=== PATIENT | male | born 1960 | race Caucasian/White ===

== ENCOUNTER 2022-03-20 05:51 | Inpatient (IN) | payer OTHER, SELFPAY ==
[2022-03-20] VITALS (21 sets, daily range): BP systolic 85–111; BP diastolic 62–89; PULSE 79–99; RESP 16–24; TEMP 36.2–38.1; O2SAT 85–96; BMI 27.5; BMI 26.8
--- NOTE | 2022-03-20 06:15 | RAD_ITS ---
STUDY: X-RAY CHEST REASON FOR EXAM: Male, 61 years old. Dyspnea TECHNIQUE: Portable, upright, AP chest x-ray COMPARISON: None. FINDINGS: Scattered bilateral pulmonary infiltrates. Elevated right hemidiaphragm. There is no demonstrated pleural abnormality. Normal size heart. Normal mediastinum and luis fernando. Normal visualized pulmonary arteries. Normal visualized aortic arch and descending thoracic aorta. There is no demonstrated abnormality of the visualized soft tissue structures of the upper abdomen. RAD/Chest 1 View (Portable) IMPRESSION: Bilateral pulmonary infiltrates suspicious for the focal pneumonia. Electronically Signed: Frank Valdovinos MD at 6:47 EST ,
--- NOTE | 2022-03-20 06:15 | EKG12_ITS ---
Test Reason : SOB Blood Pressure : / mmHG Vent. Rate : 090 BPM Atrial Rate : 090 BPM P-R Int : 152 ms QRS Dur : 096 ms QT Int : 352 ms P-R-T Axes : 060 065 067 degrees QTc Int : 430 ms Normal sinus rhythm Low voltage QRS ST depression, consider subendocardial injury Nonspecific T wave abnormality Abnormal ECG Confirmed by LIANA PINEDA, SHIRLEY ([id number]), video effects editor EVERARDO DAO ([id number]) on 03/22/2022 11:11:58 AM Referred By: Confirmed By:SHIRLEY GAINES MD
--- NOTE | 2022-03-20 06:16 | EDS_ITS ---
HPI History of Present Illness Chief Complaint: Shortness of Breath Informant: patient and spouse/S.O. Narrative Narrative: 61-year-old male presenting to the emergency room with a chief complaint of dyspnea. He states that he had a stomach flu on Monday. states that he was vomiting from Monday into yester. He denies any diarrhea any fevers. He notes that he did have some myalgias. No URI symptoms. No cough. He states that he is starting to develop some shortness of breath on but progressively worsened more last night to the point where he is unable to lay flat. Nursing triage notes that the patient was about 85% on room air when he came in and that he looked bluish. He states he is not treated for any medical problems. He denies any active chest pain or recent chest pain. No DVT PE risk factors. He denies any leg swelling. PFSH PFSH Medical History no medical history no medical history Allergy/AdvReac Type Severity Reaction Status Date / Time No Known Allergies Allergy Verified 03/20/22 05:56 Surgical History no surgical history Social History (Updated 03/20/22 @ 06:[address] Blaine Fisher, DO) current gender identity: male Smoking Status: Never smoker ROS ROS ED Constitutional Constitutional ED: Denies chills, fever(s) or weight loss Eyes Eyes: Denies change in vision or diplopia ENT ENT ED: Denies ear pain, rhinorrhea or sore throat Cardiovascular Cardiovascular: Reports orthopnea; Denies chest pain, palpitations or racing heartbeat Respiratory/Chest Respiratory/Chest: Reports dyspnea, dyspnea on exertion and orthopnea; Denies cough Gastrointestinal Gastrointestinal: Reports nausea and vomiting; Denies abdominal pain or diarrhea Genitourinary Genitourinary ED: Denies dysuria, hematuria or urinary frequency Musculoskeletal Musculoskeletal: Denies arthralgias or myalgias Integumentary Denies abscess or rash Neurologic Neurologic: Denies headache(s) or weakness Psychiatric Psychiatric: Denies anxiety, depression, suicidal ideation or suicidal thoughts Endocrine Endocrinology: Denies polydipsia, polyphagia or polyuria Allergic/Immunologic Allergic/Immunologic ED: Denies mouth swelling, tongue swelling or urticaria EXAM Physical Exam Const Vital Signs: 03/20/22 05:52 03/20/22 05:58 03/20/22 06:57 Temperature 97.6 F L Temperature Source Temporal Pulse Rate 89 87 Respiratory Rate 22 H 20 H Respiratory Effort Short of Breath Respiratory Depth Normal Respiratory Pattern Tachypnea Normal Blood Pressure 111/76 Blood Pressure Mean 87 Pulse Ox 85 Oxygen Delivery Method Room Air Room Air 03/20/22 07:16 Temperature Temperature Source Pulse Rate Respiratory Rate Respiratory Effort Short of Breath Labored Respiratory Depth Respiratory Pattern Blood Pressure Blood Pressure Mean Pulse Ox Oxygen Delivery Method Positive well nourished and well developed General Appearance ED: well developed HEENT Reports normocephalic, head/scalp atraumatic and moist mucous membranes Eyes PERRL and EOMs intact bilaterally Neck no lymphadenopathy, supple and no JVD Resp normal respiratory effort Auscultation: rales bilateral Cardio regular rate, regular rhythm and no murmurs GI normal to inspection, nondistended, normoactive bowel sounds and non-tender Palpation: soft Back/Spine no CVA tenderness and normal ROM Extremity normal to inspection General Extremety ED: Negative for edema General Extremity: Negative for edema Neuro oriented x3 and CN's II-XII intact bilaterally Sensorium / Orientation: alert Motor Exam: strength 5/5 throughout Psych mental status grossly normal Mood & Affect: Negative for depressed or tearful Skin no rashes or lesions noted and no wounds MDM MDM MDM Narrative Medical decision making narrative: You doPatient was placed on the monitor given supplemental oxygen. The patient's saturations improved and his dyspnea also improved. His white count returns at 20.5. Hemoglobin of 16.1. Beta natruretic peptide is 337.2. The patient's troponin is very significantly elevated at 19,525 with a creatinine of 1.26. Normal lactic acid. Initial EKG shows some ST depressions in the anterior leads which continued even after his hypoxia into the second EKG. A third EKG was ordered after approximately 2 hours and supplemental oxygen. My interpretation of the chest x-ray is congestive heart failure. However radiology is reading this as bilateral infiltrates. The patient did receive Rocephin and azithromycin. Repeat examination the patient feels better. However I still am very concerned from a cardiac standpoint so I placed him on a heparin drip and given aspirin. I did contact Dr. Lamas from cardiology who will be down to evaluate the patient. Lab Data Attestation: I reviewed the patient's lab results. Labs: Laboratory Results - last 24 hr 03/20/22 03/20/22 03/20/22 06:00 06:00 06:00 WBC 20.5 H RBC 4.84 Hgb 16.1 Hct 46.3 MCV 95.7 H MCH 33.3 H MCHC 34.8 RDW Std Deviation 44.4 H RDW Coeff of Andrew 12.5 Plt Count 290 MPV 12.3 H Immature Gran % (Auto) 1.000 H Neut % (Auto) 79.1 H Lymph % (Auto) 8.0 L [place] % (Auto) 11.7 H Eos % (Auto) 0.0 Baso % (Auto) 0.2 Absolute Neuts (auto) 16.2 H Absolute Lymphs (auto) 1.63 Nucleated RBC % 0 Diff Path Review May foll Macrocytosis RARE PT INR APTT Sodium 136 Potassium 3.8 Chloride 100 Carbon Dioxide 28.0 Anion Gap 8 BUN 29 H Creatinine 1.26 Estim Creat Clear Calc 64.74 Est GFR (MDRD) Af Amer 75 Est GFR (MDRD) Non-Af 62 BUN/Creatinine Ratio 23.0 H Glucose 128 H Lactic Acid Calcium 8.6 Total Bilirubin 1.70 H AST 163 H ALT 92 H Alkaline Phosphatase 163 H Troponin I High Sens 59249 H* B-Natriuretic Peptide 337.2 H Total Protein 7.4 Albumin 3.3 Globulin 4.1 Albumin/Globulin Ratio 0.8 L 03/20/22 03/20/22 06:00 07:00 WBC RBC Hgb Hct MCV MCH MCHC RDW Std Deviation RDW Coeff of Andrew Plt Count MPV Immature Gran % (Auto) Neut % (Auto) Lymph % (Auto) [place] % (Auto) Eos % (Auto) Baso % (Auto) Absolute Neuts (auto) Absolute Lymphs (auto) Nucleated RBC % Diff Path Review Macrocytosis PT 15.1 H INR 1.2 APTT 32.2 Sodium Potassium Chloride Carbon Dioxide Anion Gap BUN Creatinine Estim Creat Clear Calc Est GFR (MDRD) Af Amer Est GFR (MDRD) Non-Af BUN/Creatinine Ratio Glucose Lactic Acid 1.8 Calcium Total Bilirubin AST ALT Alkaline Phosphatase Troponin I High Sens B-Natriuretic Peptide Total Protein Albumin Globulin Albumin/Globulin Ratio Radiography Diagnostic Testing: Clinical Impression(s) from Imaging Studies Chest X-Ray 03/20/22 06:15 IMPRESSION: Bilateral pulmonary infiltrates suspicious for the focal pneumonia. Electronically Signed: Frank Valdovinos MD at 6:47 EST , EKG Initial EKG: Attestation: I personally reviewed and interpreted this EKG as follows: Comments: Normal sinus rhythm with a ventricular rate of 90 bpm. V1 is very difficult to interpret. There is some noted ST depression V2 V3 and V4. Follow-up EKG: Attestation: I personally reviewed and interpreted this EKG as follows: Comments: Sinus rhythm with a ventricular rate of [address] depression in the anterior leads. Critical Care Time Critical Care Time: Yes Critical care time (excluding procedures): 30-74 minutes (35 min), Including time spent:, Discussing w/Patient &/or Family/Cream Maker, Discussing w/Consultants, Arranging Admission or Transfer and Performing Direct Patient Care at Bedside Discharge Plan Dx/Rx/DC Orders Clinical Impression: Acute non-ST elevation myocardial infarction (NSTEMI), Acute hypoxemic respiratory failure, CHF (congestive heart failure), Leukocytosis Disposition Disposition: Acute Care Hospital [facility]
[2022-03-20 06:25] LABS: Absolute Lymphocyte Count 1.63 X10^3/uL (0.83-4.51); Absolute Neutrophil Count 16.2 X10^3/uL (2.0-7.7); Basophil# 0.05 X10^3/uL; Basophil% 0.2 % (0-1); Hematocrit 46.3 % (40-54); Hemoglobin 16.1 g/dL (13.0-16.5); Lymphocyte # 1.63 X10^3/ul (0.83-4.51); Mean Corp Hgb Conc 34.8 g/dL (32-36); Mean Corpuscular Hgb 33.3 pg (27.0-32.0); Mean Corpuscular Volume 95.7 fL (80-94); Mean Platelet Vol. 12.3 fl (6.2-12.0); Monocyte% 11.7 % (0-10); NRBC Flagged by Analyzer 0 % (0-5); Neutrophil % 79.1 % (47-70); POSITIVE DIFFERENTIAL YES; Platelet Count 290 K/mm3 (150-450); RBC Distribution Width CV 12.5 % (11.6-14.6); RBC Distribution Width SD 44.4 fl (35.1-43.9); Red Blood Count 4.84 M/mm3 (4.6-6.2); White Blood Count 20.5 K/mm3 (4.4-11.0)
[2022-03-20 06:29] LABS: Differential Indicated SCAN CRITERIA MET
--- NOTE | 2022-03-20 06:39 | EKG12_ITS ---
Test Reason : SOB Blood Pressure : / mmHG Vent. Rate : 087 BPM Atrial Rate : 087 BPM P-R Int : 170 ms QRS Dur : 100 ms QT Int : 342 ms P-R-T Axes : 059 054 044 degrees QTc Int : 411 ms Normal sinus rhythm Low voltage QRS Nonspecific ST and T wave abnormality Abnormal ECG Confirmed by LIANA PINEDA, SHIRLEY ([id number]), industrial editor EVERARDO DAO ([id number]) on 03/22/2022 11:12:19 AM Referred By: Confirmed By:SHIRLEY GAINES MD
[2022-03-20 06:50] LABS: Macrocytosis RARE
[2022-03-20] MEDS: Ipratropium/Albuterol Sulfate 3 ML AMPUL.NEB INHALATION ×4 (06:56→19:40)
--- NOTE | 2022-03-20 06:57 | NURSING ---
no old ekgs
[2022-03-20 07:16] LABS: BNP,B-Type NATRIURETIC PEPTIDE 337.2 pg/mL (0-100)
[2022-03-20] MEDS: 0.9% Normal Saline 1,000 ML 999 ML IV (07:22)
[2022-03-20] MEDS: Ceftriaxone 1 GM/50 ML BAG IV (07:29)
[2022-03-20 07:40] LABS: International Normalized Ratio 1.2; Prothrombin Time (Protime)PT. 15.1 SECONDS (11.7-14.9)
[2022-03-20 07:41] LABS: Partial Thromboplast Time 32.2 Seconds (24.1-36.2)
[2022-03-20 07:44] LABS: Lactic Acid 1.8 mmol/L (0.4-1.9)
[2022-03-20 07:54] LABS: ALB/GLOB Ratio 0.8 RATIO (0.9-2.4); AST(SGOT) 163 U/L (15-37); Alanine Aminotransfer ALT/SGPT 92 U/L (16-61); Albumin, Serum 3.3 g/dL (3.2-5.0); Alkaline Phosphatase 163 U/L (45-117); Anion Gap 8 (5-15); BUN 29 mg/dL (7-18); Calcium,Total 8.6 mg/dL (8.5-10.1); Chloride 100 mmol/L (98-107); Creatinine, Serum 1.26 mg/dL (0.70-1.30); EST Glomerular Filtration Rate 62 mL/min (>60); Est Glom Filt Rate - Afr Amer 75 mL/min (>60); Estimated Creatinine Clearance 64.74 ml/min; Globulin 4.1 g/dL (2.2-4.2); Glucose 128 mg/dL (74-106); Potassium 3.8 mmol/L (3.5-5.1); Protein, Total 7.4 g/dL (6.4-8.2); Sodium Level 136 mmol/L (136-145); Troponin-I HS 19525 pg/mL (3.0-78.0)
--- NOTE | 2022-03-20 08:08 | EKG12_ITS ---
Test Reason : RE CHECK Blood Pressure : / mmHG Vent. Rate : 084 BPM Atrial Rate : 084 BPM P-R Int : 156 ms QRS Dur : 090 ms QT Int : 374 ms P-R-T Axes : 066 058 050 degrees QTc Int : 441 ms Sinus rhythm with occasional Premature ventricular complexes Low voltage QRS ST depression, consider subendocardial injury Nonspecific T wave abnormality Abnormal ECG Confirmed by LIANA PINEDA, SHIRLEY ([id number]), legal editor EVERARDO DAO ([id number]) on 03/22/2022 11:12:39 AM Referred By: Confirmed By:SHIRLEY GAINES MD
[2022-03-20] MEDS: Aspirin 325 MG Tablet PO (08:12)
[2022-03-20] MEDS: Heparin Injection (Vial) 5,000 UNIT/ML VIAL 6000 UNIT IV (08:27)
[2022-03-20] MEDS: HEPARIN/D5w 25,000 UNITS 25,000 UNITS/250 ML IV.SOLN. 12 UNITS CONT INF (08:27)
--- NOTE | 2022-03-20 08:52 | ECHOD_ITS ---
Reason For Study: SOB Procedure This was a 2D Doppler, Color Flow transthoracic echocardiogram. Exam performed portable in patient room. Left Ventricle Normal LV size. The estimated ejection fraction is 45 %. Mild to moderate segmental systolic dysfunction (see wall motion). Mid-Inferior: Severely Hypokinetic. Mid-Lateral : Akinetic. Lateral- Basal: Akinetic. Infero-Basal: Akinetic. There are regional wall motion abnormalities as specified. Right Ventricle Normal RV size. Normal systolic function. Atria Normal left atrium. Normal right atrium. Mitral Valve Normal mitral valve. Moderately severe (3+) eccentric mitral valve insufficiency. Tricuspid Valve Normal tricuspid valve. Moderate (2+) tricuspid valve insufficiency. Pulmonary artery systolic pressure is 60 mmHg. Moderate pulmonary hypertension. Aortic Valve Normal aortic valve. Trisinus/trileaflet aortic valve. Pulmonic Valve Normal pulmonic valve. Great Vessels Normal aortic root. The pulmonary artery is normal size. Normal inferior vena cava. Pericardium/Pleural No pericardial effusion. MMode/2D Measurements & Calculations LVIDd: 5.6 cm IVSd: 1.1 cm Ao root diam: 2.9 cm LVIDs: 4.3 cm LVPWd: 1.2 cm RVDd: 3.4 cm FS: 24.4 % LAV(MOD-bp): 70.7 ml LVAd ap4: 36.0 cm2 LVAd ap2: 29.7 cm2 LAV(MOD-bp) Indexed: 33.7 ml/m2 LVLd ap4: 8.3 cm LVLd ap2: 7.4 cm LAV(MOD-sp2): 78.2 ml EDV(MOD-sp4): 133.2 ml EDV(MOD-sp2): 104.5 ml LAV(MOD-sp4): 57.3 ml EDV(sp4-el): 132.4 ml EDV(sp2-el): 101.2 ml LVAs ap4: 24.5 cm2 LVAs ap2: 21.0 cm2 LVLs ap4: 6.8 cm LVLs ap2: 6.5 cm ESV(MOD-sp4): 77.1 ml ESV(MOD-sp2): 60.3 ml ESV(sp4-el): 75.0 ml ESV(sp2-el): 57.6 ml EF(MOD-sp4): 42.1 % EF(MOD-sp2): 42.3 % EF(sp4-el): 43.3 % SV(MOD-sp4): 56.1 ml SV(MOD-sp2): 44.2 ml SV(sp4-el): 57.4 ml LA dimension(2D): 4.5 cm LA A4 area: 21.5 cm2 RA A4 area: 16.2 cm2 Doppler Measurements & Calculations MV E max sendy: 93.6 cm/sec Ao V2 max: 103.3 cm/sec LV V1 max: 79.0 cm/sec Ao max P.3 mmHg LV V1 max P.5 mmHg PA V2 max: 83.1 cm/sec TR max sendy: 367.3 cm/sec TR max P.0 mmHg ECHO/Echo Complete Interpretation Summary Normal LV size. The estimated ejection fraction is 45 %. Mild to moderate segmental systolic dysfunction (see wall motion). Moderately severe (3+) eccentric mitral valve insufficiency. Pulmonary artery systolic pressure is 60 mmHg. Moderate pulmonary hypertension. Ordering Physician: Carmelo Lamas Referring Physician: Moshe Sanchez MD Performed By: Aylin Thurston, ALDAIR, RVT
--- NOTE | 2022-03-20 08:53 | CON.PCM.CA_ITS ---
Assessment & Plan Assessment/Plan (1) Acute non-ST elevation myocardial infarction (NSTEMI): PLAN: He does present with mild shortness of breath and is noted to have an elevated troponin level. He also has EKG changes suggestive of coronary ischemia. At this time he is pain-free. My recommendation is to treat him conservatively with aspirin as well as intravenous heparin. * Will obtain an echocardiogram to assess his ventricular function and then depending on the findings further recommendations will be made. * My threshold to perform a left heart catheterization would be rather low. (2) CHF (congestive heart failure): PLAN: He does present with shortness of breath and is noted to have chest x-ray findings which are compatible with congestive heart failure. Will obtain an echocardiogram to assess his ventricular function and depending on the findings further recommendations made. In the meantime would suggest a dose of diuretics. Thank you for allowing me to participate in the care of your patient. Please don't hesitate to call if any issues arise. HPI Consult Data Date of Consult: 03/20/22 HPI Narrative HPI Narrative: MIRIAN BALLARD, is a 61 M who presents to the emergency room complaining of weakness malaise and some shortness of breath with exertion. He thinks that he may have had an episode of chest discomfort last week which may have been sharp. He is certainly not had any chest heaviness no diaphoresis no dizziness no near syncope or syncope. In the emergency room he was noted to be mildly short of breath and his EKG demonstrated ST depression in the anterior leads. Chest x- ray demonstrated evidence of likely congestive heart failure. Blood work that was done routinely with a troponin and BNP demonstrated elevated levels and cardiology was called for further evaluation and management. He denies any paroxysmal nocturnal dyspnea or pedal edema no neck arm or jaw discomfort suggest angina he is fully vaccinated with regards to COVID. PFSH Medical History no medical history Allergy/AdvReac Type Severity Reaction Status Date / Time No Known Allergies Allergy Verified 03/20/22 05:56 Surgical History no surgical history Social History current gender identity: male Smoking Status: Never smoker ROS Constitutional Constitutional: Denies fever(s) or weight loss Eyes Eyes: Reports systems reviewed and no addt'l complaints, except as documented ENT HEENT: Reports systems reviewed and no addt'l complaints, except as documented Cardiovascular Cardiovascular: Reports dyspnea at rest and dyspnea on exertion; Denies chest pain at rest, chest pain with activity, edema, palpitations or paroxysmal nocturnal dyspnea Respiratory/Chest Respiratory/Chest: Denies dyspnea on exertion, productive cough, shortness of breath at rest or shortness of breath with exertion Gastrointestinal Gastrointestinal: Denies change in bowel habits, nausea, vomiting or weight changes Genitourinary Genitourinary: Denies difficulty urinating Musculoskeletal Musculoskeletal: Denies joint stiffness or muscle weakness Integumentary Integumentary: Denies lesions Neurologic Neurologic: Denies dizziness or syncope Psychiatric Psychiatric: Denies anxiety Endocrine Endocrinology: Denies excessive sweating or fatigue Hematologic/Lymphatic Hematologic/Lymphatic: Denies anemia Allergic/Immunologic Allergic/Immunologic: Denies seasonal rhinorrhea Physical Exam Const alert, oriented x3 and no apparent distress General Appearance: cooperative HEENT hearing grossly normal bilaterally Head and Scalp: atraumatic Eyes EOMs intact bilaterally Neck General: normal visual inspection Chest inspection of chest normal and palpation of chest normal Resp normal respiratory effort Auscultation: clear to auscultation bilaterally Cardio regular rate, regular rhythm, S1 normal heart sound and S2 normal heart sound Jugular Venous Distention: JVD GI normal to inspection, nondistended, normoactive bowel sounds Extremity normal capillary refill and no pedal edema Peripheral Pulses: Yes pulses 2+ throughout and femoral pulses present Skin no rashes or lesions noted Neuro oriented x3 and CN's II-XII intact bilaterally Psych Appearance: grossly normal and appropriate Risk Stratification Risk Stratification Applicable: Yes Age >/= 65: No >/= 3 CAD Risk Factors (HTN, HLD, DM, family hx of CAD, or current smoker): No Aspirin Use in the Past 7 Days: No Severe Angina (>/= episodes in 24 hours): No EKG ST Changes >/= 0.5mm: Yes Positive Cardiac Marker: Yes CAITLYN Risk Stratification Score: 2 CAITLYN % Risk: 8% Risk Objective Data Vital Signs: Vital Signs Temp Pulse Resp BP Pulse Ox O2 Del Method O2 Flow Rate 98.3 F 91 23 H 101/75 93 Nasal Cannula 5 03/20/22 08:37 03/20/22 08:37 03/20/22 08:37 03/20/22 08:37 03/20/22 08:37 03/20/22 08:37 03/20/22 08:37 Oxygen Flow Rate (L/min) 5 Oxygen Delivery Method Nasal Cannula Weight: 197 lb 8.547 oz Body Mass Index (BMI) 27.5 Intake & Output: Intake and Output for Last 24 Hours 03/18/22 03/19/22 03/20/22 23:59 23:59 23:59 Intake Total 750 / 750 Balance 750 / 750 Lab / Micro Data Result Diagrams: 03/20/22 06:00 03/20/22 06:00 Labs: Laboratory Results - last 24 hr 03/20/22 06:00: WBC 20.5 H, RBC 4.84, Hgb 16.1, Hct 46.3, MCV 95.7 H, MCH 33.3 H , MCHC 34.8, RDW Std Deviation 44.4 H, RDW Coeff of Andrew 12.5, Plt Count 290, MPV 12.3 H, Immature Gran % (Auto) 1.000 H, Neut % (Auto) 79.1 H, Lymph % (Auto) 8.0 L, [place] % (Auto) 11.7 H, Eos % (Auto) 0.0, Baso % (Auto) 0.2, Absolute Neuts (auto) 16.2 H, Absolute Lymphs (auto) 1.63, Nucleated RBC % 0, Diff Path Review May , Macrocytosis RARE 03/20/22 06:00: Sodium 136, Potassium 3.8, Chloride 100, Carbon Dioxide 28.0, Anion Gap 8, BUN 29 H, Creatinine 1.26, Estim Creat Clear Calc 64.74, Est GFR (MDRD) Af Amer 75, Est GFR (MDRD) Non-Af 62, BUN/Creatinine Ratio 23.0 H, Glucose 128 H, Calcium 8.6, Total Bilirubin 1.70 H, AST 163 H, ALT 92 H, Alkaline Phosphatase 163 H, Troponin I High Sens 81152 H*, Total Protein 7.4, Albumin 3.3, Globulin 4.1, Albumin/Globulin Ratio 0.8 L 03/20/22 06:00: B-Natriuretic Peptide 337.2 H 03/20/22 06:00: PT 15.1 H, INR 1.2, APTT 32.2 03/20/22 07:00: Lactic Acid 1.8 03/20/22 07:30: PT Cancelled, INR Cancelled, APTT Cancelled Rhythm Strip Rhythm Strip: Sinus Rhythm Cardiology Labs/Tests 03/20/22 06:00: WBC 20.5 H, RBC 4.84, Hgb 16.1, Hct 46.3, MCV 95.7 H, MCH 33.3 H , MCHC 34.8, Plt Count 290, MPV 12.3 H, Immature Gran % (Auto) 1.000 H, Neut % (Auto) 79.1 H, Lymph % (Auto) 8.0 L, [place] % (Auto) 11.7 H, Eos % (Auto) 0.0, Baso % (Auto) 0.2, Absolute Neuts (auto) 16.2 H, Nucleated RBC % 0 03/20/22 06:00: Sodium 136, Potassium 3.8, Chloride 100, Carbon Dioxide 28.0, Anion Gap 8, BUN 29 H, Creatinine 1.26, Est GFR (MDRD) Af Amer 75, Est GFR (MDRD) Non-Af 62, BUN/Creatinine Ratio 23.0 H, Glucose 128 H, Calcium 8.6, Total Bilirubin 1.70 H 03/20/22 06:00: B-Natriuretic Peptide 337.2 H 03/20/22 06:00: PT 15.1 H, INR 1.2, APTT 32.2 03/20/22 07:00: Lactic Acid 1.8 03/20/22 07:30: PT Cancelled, INR Cancelled, APTT Cancelled Rhythm: EKG: ECHO: Stress Test: Cardiac Cath: PCI: CT Surgery: Holter monitor: EPS: PPM: CXR: Chest CT Scan: Radiography Diagnostic Testing: Radiology Impression Chest X-Ray 03/20/22 06:15 IMPRESSION: Bilateral pulmonary infiltrates suspicious for the focal pneumonia. Electronically Signed: Frank Valdovinos MD at 6:47 EST ,
--- NOTE | 2022-03-20 09:00 | NURSING ---
PCU [facility] HYPOXEMIA, PNEUMONIA, NSTEMI
[2022-03-20] MEDS: Furosemide 40 MG/4 ML Vial IV (09:02)
--- NOTE | 2022-03-20 09:14 | HP.PCM.HOS_ITS ---
[facility] - General General Date of Admission: 03/20/22 Date of Service: 03/20/22 Chief Complaint: Shortness of breath -ongoing for 2 days, was on the morning of the admission HPI Narrative MIRIAN BALLARD, is a 61 M who presents with the above. Patient denies any significant past medical history. He has not seen a doctor in a couple of years. He stated that 5 days prior to admission, he started having episodes of vomiting. He last vomited a day prior to admission. He had also been progressively short of breath. He denied any specific chest pain or dizziness or palpitations. He felt some chills but denied fever. He denied any sick contact. Last night, he could not lie flat, he has over the last couple of days been lying on 2 pillows. He felt unwell and decided to come to the emergency room. In the emergency room, his blood pressure was 111/76, heart rate 89, respiratory rate 22, his temperature was 97.6F, Spo2 was 85% on room air, this improved to 94% on 5 L of oxygen. His admitting blood work was significant for WBC count of 20.5, hemoglobin 16.1, platelet count of 290, INR is 1.2, his BMP was significant for BUN of 29, creatinine 1.26. No previous creatinine to compare it to the bilirubin was 1.70, AST 163, ALT 92, ALP 163. Troponins were elevated at 19,525. His BNP was elevated at 337.2. His chest x-ray showed scattered bilateral pulmonary infiltrates. EKG shows ST segment depression in V2 and V3 and T wave inversions in V4, V5 and V6. PFSH Medical History no medical history no medical history Allergy/AdvReac Type Severity Reaction Status Date / Time No Known Allergies Allergy Verified 03/20/22 05:56 Family History no significant family his no significant family history Surgical History no surgical history no surgical history Social History (Updated 03/20/22 @ 09:[address] Cherry Camacho MD) household members: spouse current gender identity: male Smoking Status: Never smoker details: occasional alcohol substance use type: does not use ROS ROS Narrative Constitutional:Denies: Anorexia, Chills, Fever, Night Sweats, Weight Change Eyes: Denies: Blurred vision, Cataracts, Conjunctivae Inflammation, Pain, Redness, Vision Change HEENT: Denies: Difficulty Hearing, Difficulty Swallowing, Head Aches, Hearing Changes, Sinus Congestion, Sinus Drainage Cardiovascular: Denies: Chest Pain, Orthopnea, Palpitations Respiratory: Denies: Cough, Shortness of breath at rest, Sputum production Gastrointestinal: Denies: Abdominal Pain, Nausea, Vomiting Genitourinary: Denies: Dysuria Musculoskeletal: Denies: Joint Pain, Joint stiffness, Joint swelling, Joint Tenderness Skin: Denies: Rash, Wounds Neurological: Denies: Numbness, Tingling, Focal weakness Vital Signs Vital Signs Vital Signs: 03/20/22 05:52 03/20/22 05:58 03/20/22 06:57 Temperature 97.6 F L Temperature Source Temporal Pulse Rate 89 87 Respiratory Rate 22 H 20 H Respiratory Effort Short of Breath Respiratory Depth Normal Respiratory Pattern Tachypnea Normal Blood Pressure 111/76 Blood Pressure Mean 87 Pulse Ox 85 Oxygen Delivery Method Room Air Room Air Oxygen Flow Rate (L/min) 03/20/22 07:16 03/20/22 08:24 03/20/22 08:37 Temperature 98.3 F 98.3 F Temperature Source Oral Oral Pulse Rate 90 91 Respiratory Rate 20 H 23 H Respiratory Effort Short of Breath Labored Respiratory Depth Respiratory Pattern Blood Pressure 93/67 101/75 Blood Pressure Mean 75 83 Pulse Ox 93 93 Oxygen Delivery Method Nasal Cannula Nasal Cannula Oxygen Flow Rate (L/min) 4 5 03/20/22 08:56 Temperature 98.3 F Temperature Source Oral Pulse Rate 84 Respiratory Rate 16 Respiratory Effort Respiratory Depth Respiratory Pattern Blood Pressure 102/76 Blood Pressure Mean 84 Pulse Ox 94 Oxygen Delivery Method Nasal Cannula Oxygen Flow Rate (L/min) 5 Weight Weight: 89.6 kg Body Mass Index (BMI) 27.5 Physical Exam Narrative Physical exam: General: Alert, Oriented x3, Cooperative, slightly short of breath, on 5 L of oxygen HEENT: Atraumatic Oral: Moist Mucosa Neck: Supple Lungs: Diminished to auscultation, coarse crackles in both lung bases Cardiovascular: HS I+II, regular, no murmurs Abdomen: Bowel Sounds Present, Soft, Non Tender Extremities: No edema Skin: No rashes, No breakdown Neurological: Grossly intact Psych/Mental Status: Appropriate Results Lab / Micro Data Result Diagrams: 03/20/22 06:00 03/20/22 06:00 Labs: Laboratory Results - last 24 hr 03/20/22 06:00: WBC 20.5 H, RBC 4.84, Hgb 16.1, Hct 46.3, MCV 95.7 H, MCH 33.3 H , MCHC 34.8, RDW Std Deviation 44.4 H, RDW Coeff of Andrew 12.5, Plt Count 290, MPV 12.3 H, Immature Gran % (Auto) 1.000 H, Neut % (Auto) 79.1 H, Lymph % (Auto) 8.0 L, Barren % (Auto) 11.7 H, Eos % (Auto) 0.0, Baso % (Auto) 0.2, Absolute Neuts (auto) 16.2 H, Absolute Lymphs (auto) 1.63, Nucleated RBC % 0, Diff Path Review May , Macrocytosis RARE 03/20/22 06:00: Sodium 136, Potassium 3.8, Chloride 100, Carbon Dioxide 28.0, Anion Gap 8, BUN 29 H, Creatinine 1.26, Estim Creat Clear Calc 64.74, Est GFR (MDRD) Af Amer 75, Est GFR (MDRD) Non-Af 62, BUN/Creatinine Ratio 23.0 H, Glucose 128 H, Calcium 8.6, Total Bilirubin 1.70 H, AST 163 H, ALT 92 H, Alkaline Phosphatase 163 H, Troponin I High Sens 46506 H*, Total Protein 7.4, Albumin 3.3, Globulin 4.1, Albumin/Globulin Ratio 0.8 L 03/20/22 06:00: B-Natriuretic Peptide 337.2 H 03/20/22 06:00: PT 15.1 H, INR 1.2, APTT 32.2 03/20/22 07:00: Lactic Acid 1.8 03/20/22 07:30: PT Cancelled, INR Cancelled, APTT Cancelled Rhythm Strip Rhythm Strip: Sinus Rhythm Radiology Impression Chest X-Ray 03/20/22 06:15 IMPRESSION: Bilateral pulmonary infiltrates suspicious for the focal pneumonia. Electronically Signed: Frank Valdovinos MD at 6:47 EST , Assessment & Plan Assessment/Plan (1) Acute non-ST elevation myocardial infarction (NSTEMI): (2) Acute hypoxemic respiratory failure: PLAN: Plan 1. Acute hypoxic respiratory insufficiency related to acute flash pulmonary edema Patient is currently on 5 L of oxygen Chest x-ray showed bilateral infiltrate likely secondary to pulmonary edema BNP owd533.2; Lasix x1 given in the ED Repeat x-ray in the morning, wean off for Spo2 for more than 94%, Encourage use of incentive spirometer 2. Acute non-STEMI, probably type I, patient with abnormal EKG showing ST segment depressions in V2 and V3 and T wave inversions in V4?V5/V6. Admitting troponin was more than 19,000, patient denies chest pain though Cardiology consulted; continue on heparin drip, 2D echo, aspirin, trend troponins, follow-up on cardiology recommendations 3. Abnormal chest x-ray, suspicious for bilateral pulmonary infiltrates Likely secondary to acute flash pulmonary edema Patient however presented with WBC count of 20.5; patient given IV antibiotics in the ED Continue on IV ceftriaxone and azithromycin Check rapid COVID-19 antigen, respiratory panel, urine streptococcal and Legionella antigen 4. Elevated LFTs likely secondary to #2 We will trend 5. DVT prophylaxis?patient is on heparin drip I discussed and explained in details the various types of CODE STATUS-full code, DNR CCA, DNR CC. Patient chose to be DNR CCA, no intubation. Time spent discussing CODE STATUS 16 minutes Charges/Coding Visit Charges Inpatient E&M: 59599 Init Hosp L3 Procedures Hospitalists Procedures: 62330 Advncd Care Plan 30 Min
--- NOTE | 2022-03-20 09:25 | EKG12_ITS ---
Test Reason : Blood Pressure : / mmHG Vent. Rate : 082 BPM Atrial Rate : 082 BPM P-R Int : 154 ms QRS Dur : 084 ms QT Int : 396 ms P-R-T Axes : 055 042 012 degrees QTc Int : 462 ms Normal sinus rhythm Low voltage QRS (Limb Leads) Nonspecific ST and T wave abnormality Prolonged QT Abnormal ECG Confirmed by ANIBAL PINEDA, SETHER ([id number]), editorial cartoonist EVERARDO DAO ([id number]) on 03/23/2022 8:02:42 AM Referred By: GAEL Confirmed By:ESTHER BARNETT MD
[2022-03-20 10:15] LABS: Troponin-I HS 23752 pg/mL (3.0-78.0)
[2022-03-20 12:26] LABS: Troponin-I HS 20290 pg/mL (3.0-78.0)
[2022-03-20 14:57] LABS: Partial Thromboplast Time 51.9 Seconds (24.1-36.2)
[2022-03-20] MEDS: Heparin Injection (Vial) 5,000 UNIT/ML VIAL IV (16:10)
[2022-03-20] MEDS: 0.9% Saline Lock 10 ML Syringe IV (16:15)
[2022-03-20] MEDS: Acetaminophen 325 MG Tablet 650 MG PO (21:36)
[2022-03-20 23:15] LABS: Partial Thromboplast Time 48.6 Seconds (24.1-36.2)
[2022-03-21] VITALS (32 sets, daily range): BP systolic 60–105; BP diastolic 42–80; PULSE 71–93; RESP 10–23; TEMP 36.9–37.7; O2SAT 91–100
[2022-03-21] MEDS: HEPARIN/D5w 25,000 UNITS 25,000 UNITS/250 ML IV.SOLN. 14 UNITS CONT INF (03:56)
[2022-03-21] MEDS: Acetaminophen 325 MG Tablet 650 MG PO (05:11)
[2022-03-21] MEDS: Aspirin 81 MG TAB.CHEW PO (05:11)
[2022-03-21 05:22] LABS: Absolute Lymphocyte Count 1.68 X10^3/uL (0.83-4.51); Absolute Neutrophil Count 8.3 X10^3/uL (2.0-7.7); Basophil# 0.03 X10^3/uL; Basophil% 0.2 % (0-1); Eosinophil# 0.07 X10^3/uL; Eosinophils% 0.6 % (0-5); Hematocrit 41.5 % (40-54); Hemoglobin 14.4 g/dL (13.0-16.5); Lymphocyte # 1.68 X10^3/ul (0.83-4.51); Lymphocyte % 13.7 % (19-41); Mean Corp Hgb Conc 34.7 g/dL (32-36); Mean Corpuscular Hgb 32.7 pg (27.0-32.0); Mean Corpuscular Volume 94.1 fL (80-94); Mean Platelet Vol. 11.8 fl (6.2-12.0); Monocyte# 1.94 X10^3/uL; Monocyte% 15.8 % (0-10); NRBC Flagged by Analyzer 0 % (0-5); Neutrophil # 8.33 X10^3/uL (2.7-7.7); POSITIVE DIFFERENTIAL YES; POSITIVE MORPHOLOGY YES; Platelet Count 236 K/mm3 (150-450); RBC Distribution Width CV 12.6 % (11.6-14.6); RBC Distribution Width SD 43.6 fl (35.1-43.9); Red Blood Count 4.41 M/mm3 (4.6-6.2); White Blood Count 12.3 K/mm3 (4.4-11.0)
[2022-03-21 05:25] LABS: Differential Indicated SCAN CRITERIA MET
[2022-03-21 05:39] LABS: Partial Thromboplast Time 52.3 Seconds (24.1-36.2)
[2022-03-21] MEDS: Albuterol 2.5 MG/3 ML VIAL.NEB. INHALATION (05:42)
--- NOTE | 2022-03-21 05:55 | EKG12_ITS ---
Test Reason : AM EKG Blood Pressure : / mmHG Vent. Rate : 073 BPM Atrial Rate : 073 BPM P-R Int : 138 ms QRS Dur : 068 ms QT Int : 418 ms P-R-T Axes : 039 027 042 degrees QTc Int : 460 ms Normal sinus rhythm Low voltage QRS (Limb Leads) ST depression, consider subendocardial injury Nonspecific T wave abnormality Prolonged QT Abnormal ECG Confirmed by ANIBAL PINEDA, ESTHER ([id number]), business editor EVERARDO DAO ([id number]) on 03/23/2022 8:02:21 AM Referred By: LILLIANA Confirmed By:ESTHER BARNETT MD
[2022-03-21 05:57] LABS: ALB/GLOB Ratio 0.7 RATIO (0.9-2.4); AST(SGOT) 89 U/L (15-37); Alanine Aminotransfer ALT/SGPT 69 U/L (16-61); Albumin, Serum 2.7 g/dL (3.2-5.0); Alkaline Phosphatase 159 U/L (45-117); Anion Gap 7 (5-15); BUN 22 mg/dL (7-18); BUN/Creat Ratio 25.7 RATIO (10-20); Calcium,Total 8.1 mg/dL (8.5-10.1); Chloride 101 mmol/L (98-107); Creatinine, Serum 0.86 mg/dL (0.70-1.30); EST Glomerular Filtration Rate 96 mL/min (>60); Est Glom Filt Rate - Afr Amer 117 mL/min (>60); Estimated Creatinine Clearance 94.85 ml/min; Globulin 3.9 g/dL (2.2-4.2); Glucose 117 mg/dL (74-106); Magnesium 2.5 mg/dL (1.6-2.6); Potassium 3.5 mmol/L (3.5-5.1); Protein, Total 6.6 g/dL (6.4-8.2); Sodium Level 135 mmol/L (136-145)
--- NOTE | 2022-03-21 06:31 | RAD_ITS ---
INDICATION: Dyspnea, cough EXAMINATION/TECHNIQUE: X-RAY - XR Chest 1 View COMPARISON: [id number] [id number]. FINDINGS: Worsening airspace opacities in both lungs. The cardiomediastinal silhouette is stable. No pleural effusion or pneumothorax. The osseous structures are unchanged. RAD/Chest 1 View (Portable) IMPRESSION: Worsening airspace opacities in both lungs. No other change from prior. Electronically Signed: Tomas Oscar MD at 17:42 EST ,
[2022-03-21] MEDS: Ipratropium/Albuterol Sulfate 3 ML AMPUL.NEB INHALATION ×3 (07:06→19:54)
--- NOTE | 2022-03-21 08:16 | PN.HOSP_ITS ---
Subjective Subjective Patient is a 62-year-old gentleman presented with progressive shortness of breath. An assessment of acute hypoxia secondary to flash pulmonary edema as well as acute non-STEMI made admitted to a monitored bed for further management Objective Data Objective Data Vital Signs: Vital Signs Temp Pulse Resp BP Pulse Ox O2 Del Method O2 Flow Rate 99.4 F H 86 18 99/70 93 Nasal Cannula 5 03/21/22 06:15 03/21/22 07:00 03/21/22 06:15 03/21/22 06:15 03/21/22 06:15 03/21/22 06:15 03/21/22 06:15 Oxygen Flow Rate (L/min) 5 Oxygen Delivery Method Nasal Cannula Weight: 86.4 kg Body Mass Index (BMI) 26.8 Intake & Output: Intake and Output for Last 24 Hours 03/19/22 03/20/22 03/21/22 23:59 23:59 23:59 Intake Total 2040.72 / 2040.72 89.25 / 89.25 Output Total 500 / 500 Balance 2040.72 / 2040.72 -410.75 / -410.75 Lab / Micro Data Result Diagrams: 03/21/22 05:10 03/21/22 05:10 Labs: Laboratory Results - last 24 hr 03/20/22 07:30: PT Cancelled, INR Cancelled, APTT Cancelled 03/20/22 09:24: Troponin I High Sens 14294 H* 03/20/22 11:55: Troponin I High Sens H* 03/20/22 14:35: APTT 51.9 H 03/20/22 22:40: APTT 48.6 H 03/21/22 05:10: WBC 12.3 H, RBC 4.41 L, Hgb 14.4, Hct 41.5, MCV 94.1 H, MCH 32.7 H, MCHC 34.7, RDW Std Deviation 43.6, RDW Coeff of Andrew 12.6, Plt Count 236, MPV 11.8, Immature Gran % (Auto) 1.700 H, Neut % (Auto) 68.0, Lymph % (Auto) 13.7 L, [place] % (Auto) 15.8 H, Eos % (Auto) 0.6, Baso % (Auto) 0.2, Absolute Neuts (auto) 8.3 H, Absolute Lymphs (auto) 1.68, Nucleated RBC % 0, Diff Path Review September03/21/22 05:10: Sodium 135 L, Potassium 3.5, Chloride 101, Carbon Dioxide 27.0, Anion Gap 7, BUN 22 H, Creatinine 0.86, Estim Creat Clear Calc 94.85, Est GFR (MDRD) Af Amer 117, Est GFR (MDRD) Non-Af 96, BUN/Creatinine Ratio 25.7 H, Glucose 117 H, Calcium 8.1 L, Magnesium 2.5, Total Bilirubin 1.50 H, AST 89 H, ALT 69 H, Alkaline Phosphatase 159 H, Total Protein 6.6, Albumin 2.7 L, Globulin 3.9, Albumin/Globulin Ratio 0.7 L 03/21/22 05:10: APTT 52.3 H Micro: Microbiology 03/20/22 11:02 Interface Orders Respiratory Panel (PCR) - Final Rhinovirus 03/20/22 09:56 Urine, Clean Catch Legionella Antigen - Final 03/20/22 09:56 Urine, Clean Catch Streptococcus pneumoniae Antigen (M - Final 03/20/22 09:58 Nasal Secretion SARS-CoV-2 Antigen (Rapid) - Final 03/20/22 09:02 Nasal Secretion SARS-CoV-2 Antigen (Rapid) - Final Rhythm Strip Rhythm Strip: Sinus Rhythm Physical Exam Narrative GENERAL: cooperative HEENT: Atraumatic; normocephalic EYES; Anicteric, Normal Conjunctiva NECK; supple, normal thyroid, RESPIRATORY: Diminished to auscultation CARDIOVASCULAR: Regular S1 S2, GI: soft, normoactive bowel sounds, : No Renal angle tenderness; EXTREMITIES: No edema, no clubbing, MUSCULOSKELETAL: no muscle wasting NEURO: Awake; no lateralizing signs. SKIN: No Rash PSYCH; Flat affect Assessment & Plan Assessment/Plan (1) Acute non-ST elevation myocardial infarction (NSTEMI): PLAN: Plan Patient is a 62-year-old gentleman presented with progressive shortness of breath. An assessment of acute hypoxia secondary to flash pulmonary edema as well as acute non-STEMI made admitted to a monitored bed for further management 1. Acute hypoxia - secondary to flash pulmonary edema. Patient was managed with diuretics admitted to a monitored bed placed on supplemental oxygen titrated to keep sa turation greater than 90 2. Acute non-STEMI ? Patient EKG demonstrated ST segment depression in V2 to V3 with T wave inversions in V4?V5 V6. His troponin was markedly elevated at 19,000. Treatment initiated per protocol. Consult placed to cardiology plans for patient to undergo left heart catheterization with intervention if needed 3. Bilateral pulmonary infiltrate ? Secondary to rhinovirus infection patient treated symptomatically. Patient was empirically started on ceftriaxone and azithromycin for suspected superimposed bacterial pneumonia, given his elevated WBC count 4. Elevated transaminitis ? Suspected to be secondary to patient acute non-STEMI monitoring 5. DVT prophylaxis ? Patient is on heparin Charges/Coding Visit Charges Inpatient E&M: 99172 Subs Hosp L2
--- NOTE | 2022-03-21 09:39 | CASEMGMT ---
According to the [employer] website, the following are in-network tertiary facilities: [facility], [place], [facility], [facility], [facility], and . Pierre ABDI CM
[2022-03-21] MEDS: Ceftriaxone 1 GM/50 ML BAG IV (10:23)
--- NOTE | 2022-03-21 10:25 | CASEMGMT ---
RN CM Face to Face with patient for initial transition planning/care coordination assessment. RN CM introduced self and role at [facility]. Patient lying in bed, alert and oriented, at bedside. Patient willing to participate in assessment and is able to answer all questions appropriately. Care providers, pharmacy, and demographics verified. Patient wishes to discharge home, denies need for home health at this time. Patient states he has no further needs or concerns at this time. CM to follow for discharge planning needs that may arise. PCP: Daniel Specialists: none Preferred Pharmacy: [facility] Insurance: [employer] Prescription Benefit: yes Living Will/HPOA: none LNOK: Living Arrangements: Patient lives with in a 2 story home with bed and bath on first floor. 4 steps and railing to enter the home. Patient states he is independent at home. Transportation: self, DME/HHC: Patient states he has shower chair at home. No preferences for DME. No previous HHC or SNF. Disposition Plan: Patient to discharge home with family support and follow-up plans in place. Nela CABALLERO, RN, CM
[2022-03-21 11:43] LABS: Partial Thromboplast Time 30.4 Seconds (24.1-36.2)
[2022-03-21] MEDS: Propofol 10MG/Ml 1,000 MG/100 ML Bottle 5.2 MG CONT INF (13:48)
--- NOTE | 2022-03-21 14:05 | EX.PCM.CONCC ---
Assessment & Plan Assessment/Plan (1) Acute non-ST elevation myocardial infarction (NSTEMI): (2) Acute hypoxemic respiratory failure: PLAN: Plan RECOMMENDATIONS: 1. Continue assist-control mode mechanical ventilation. Wean FiO2 and PEEP for saturations greater than 90%. 2. Obtain formal chest x-ray when feasible. 3. Continue propofol and fentanyl for sedation. 4. Intra-aortic balloon pump management per cardiology. 5. Obtain arterial blood gas and send sputum for culture. IMPRESSIONS: 1. Acute hypoxemic respiratory failure in the setting of acute coronary syndrome The patient's cardiac catheterization revealed a totally occluded left circumflex artery was moderately severe mitral regurgitation. He was emergently intubated in the cardiac catheterization lab due to impending respiratory failure. The patient's endotracheal tube placement was confirmed via fluoroscopy. The patient will be continued on propofol and fentanyl for sedation to allow for further cardiac intervention. Intra-aortic balloon pump has been placed. 2. Rhinovirus URI Continue supportive measures as noted above. TIME: 42 minutes of critical care time, independent of procedures, was spent addressing the patient's acute on toxemic respiratory failure, acute coronary syndrome, rhinovirus URI, review of all data and collaboration with the care team. HPI Consult Data Date of Consult: 03/22/22 HPI Narrative Reason for Consultation: Acute hypoxemic respiratory failure HPI Narrative: The patient is a 61-year-old male, with a history as outlined below, who presented to the emergency department on March 20 with shortness of breath and myalgias. His initial work-up in the emergency department included an elevated white blood cell count to 20,000. Chemistry profile was notable for a creatinine of 1.26. Lactate was within normal limits at 1.8. Total bili was increased at 1.7 with an AST of 163, ALT of 93 to an alkaline phosphatase of 163. Initial troponin was elevated at 19,525. BNP was increased to 337. Chest x-ray demonstrated bilateral pulmonary infiltrates. The patient was seen in consultation by cardiology and was placed on IV heparin and aspirin. An echocardiogram was obtained earlier today which revealed an ejection fraction of 45% with moderately severe Sergio artery systolic pressure of 60 mmHg. The patient was subsequently taken to the cardiac catheterization lab on the afternoon of March 21. I was contacted urgently to evaluate the patient due to impending respiratory failure. On my evaluation of the patient in the cardiac catheterization lab, he was in fuad respiratory distress and was notably cyanotic and hypoxic. Therefore, the patient was urgently intubated. He was subsequently placed on propofol and fentanyl for sedation to allow for further cardiac intervention to be performed. Intubation Indication: Acute respiratory failure Consent was obtained from: Patient's The patient was placed in the appropriate sniffing position. Preoxygenated sedation via [id number]-[id number] was provided for a minimum of 3 minutes. The patient had continuous cardiac as well as pulse oximetry monitoring during the procedure. Procedure sedation was provided by the administration of 50 mg of propofol. Direct laryngoscopy was then performed using a number 4 MAC blade, which revealed a grade 2 view. A 8.0 mm endotracheal tube was visualized advancing between the cords to the level of 22 cm at the lip. The stylette was then removed and discarded. Tube placement was confirmed by fogging in the tube along with equal and bilateral breath sounds. Colorimetric change was visualized on the CO2 meter. The cuff was then inflated and the tube secured using a commercially available device. A good pulse oximetry waveform was seen on the monitor throughout the procedure. A portable chest x-ray has been ordered to confirm appropriate placement. The patient tolerated the procedure well. [facility] Medical History no medical history Home Medications NK 03/20/22 [History Last Taken Unknown] Allergy/AdvReac Type Severity Reaction Status Date / Time No Known Allergies Allergy Verified 03/20/22 05:56 Family History no significant family his Surgical History no surgical history Social History (Updated 03/20/22 @ 09:31 by Ginny Godoy) household members: spouse Smoking Status: Never smoker details: occasional alcohol substance use type: does not use ROS Review of Systems ROS Unobtainable: due to endotracheal tube Physical Exam Const Constitutional Narrative: The patient was initially in fuad respiratory distress on my evaluation. HEENT normocephalic and head/scalp atraumatic HEENT Narrative: Perioral cyanosis present. Eyes PERRL and EOMs intact bilaterally Neck supple General: trachea midline Resp Effort and Inspection: tachypneic, labored and uses accessory muscles Cardio regular rate and regular rhythm GI normal to inspection, nondistended, normoactive bowel sounds Extremity no clubbing, cyanosis or edema Skin no rashes or lesions noted Neuro CN's II-XII intact bilaterally and no focal motor deficits Lab / Micro Data Result Diagrams: 03/22/22 03:40 03/22/22 03:40 Labs: Laboratory Results - last 24 hr 03/20/22 14:35: APTT 51.9 H 03/20/22 22:40: APTT 48.6 H 03/21/22 05:10: WBC 12.3 H, RBC 4.41 L, Hgb 14.4, Hct 41.5, MCV 94.1 H, MCH 32.7 H, MCHC 34.7, RDW Std Deviation 43.6, RDW Coeff of Andrew 12.6, Plt Count 236, MPV 11.8, Immature Gran % (Auto) 1.700 H, Neut % (Auto) 68.0, Lymph % (Auto) 13.7 L, Desha % (Auto) 15.8 H, Eos % (Auto) 0.6, Baso % (Auto) 0.2, Absolute Neuts (auto) 8.3 H, Absolute Lymphs (auto) 1.68, Nucleated RBC % 0, Diff Path Review September03/21/22 05:10: Sodium 135 L, Potassium 3.5, Chloride 101, Carbon Dioxide 27.0, Anion Gap 7, BUN 22 H, Creatinine 0.86, Estim Creat Clear Calc 94.85, Est GFR (MDRD) Af Amer 117, Est GFR (MDRD) Non-Af 96, BUN/Creatinine Ratio 25.7 H, Glucose 117 H, Calcium 8.1 L, Magnesium 2.5, Total Bilirubin 1.50 H, AST 89 H, ALT 69 H, Alkaline Phosphatase 159 H, Total Protein 6.6, Albumin 2.7 L, Globulin 3.9, Albumin/Globulin Ratio 0.7 L 03/21/22 05:10: APTT 52.3 H 03/21/22 11:28: APTT 30.4 Micro: Microbiology 03/20/22 11:02 Interface Orders Respiratory Panel (PCR) - Final Rhinovirus 03/20/22 09:56 Urine, Clean Catch Legionella Antigen - Final 03/20/22 09:56 Urine, Clean Catch Streptococcus pneumoniae Antigen (M - Final 03/20/22 09:58 Nasal Secretion SARS-CoV-2 Antigen (Rapid) - Final 03/20/22 09:02 Nasal Secretion SARS-CoV-2 Antigen (Rapid) - Final Rhythm Strip Rhythm Strip: Sinus Rhythm Radiology Impression Echocardiogram 03/20/22 08:52 Interpretation Summary Normal LV size. The estimated ejection fraction is 45 %. Mild to moderate segmental systolic dysfunction (see wall motion). Moderately severe (3+) eccentric mitral valve insufficiency. Pulmonary artery systolic pressure is 60 mmHg. Moderate pulmonary hypertension. Ordering Physician: Carmelo Lamas Referring Physician: Moshe Sanchez MD Performed By: Aylin Thurston, ALDAIR, RVT Charges/Coding Procedures Hospitalists Procedures: [id number] Critial Care 1st Hr
--- NOTE | 2022-03-21 14:09 | CL.D_ITS ---
Patient Name: MIRIAN BALLARD Study Date: 03/21/2022 Performing: Carmelo Lamas MD Ht: 71 inches 180.34 cm : 1960 Wt: 190.48 lbs 86.4 kg Age: 61 Gender: male BSA: 2.07 PROCEDURE(S) PERFORMED DC02-(26910)LHC/COR CLINICAL PROFILE AND INDICATIONS Indications: Suspected CAD Heart Failure: NYHA Class: 3, Newly Diagnosed: Yes, Heart Failure Type: Systolic Stress/Imaging Stress/Image Study Performed: No CONCLUSIONS CompleteTotally occluded LCXartery with minimal disease noted in the LAD and moderately severe mitral regurgitation with reduced ejection fraction and impending cardiogenic shock RECOMMENDATIONS IABP Referred for immediate PCI DESCRIPTION OF PROCEDURE The patient arrived to the procedure lab. The risks and benefits of the procedure as well as a full description of our services here and current unavailability of surgical backup were fully explained to the patient and/or their significant other prior to the catheterization. The Timeout was completed, verifying the correct patient and procedure. The patient's procedural site was prepped and draped in the usual fashion. Local anesthetic was given subcutaneously to right radial region with Lidocaine 2%. Local anesthetic was given subcutaneously to right groin region with Lidocaine 2%. Local anesthetic was given subcutaneously to right groin region with Lidocaine 2%. Using a modified Seldinger technique, arterial access was obtained via the right radial artery, a 6Fr sheath was inserted., arterial access was obtained via the right femoral artery, a 6Fr sheath was inserted. Right Coronary Artery selective angiography was then performed in multiple views using a 5 Fr. 4.0 [place] catheter. Left Coronary Artery selective angiography was performed in multiple views using a 5 Fr. 4.0 [place] catheter. Left Ventriculography was performed in JACKSON projection using a 5 Fr. Pigtail catheter.Arrow 40cc 7.5F UltraFlex IABP - Qty: 1 Each Part #: [id number], A 40cc IABP catheter was inserted into the right femoral artery, IABP settings: 1:1, IABP Augumented BP: 150 mmHg Systemic, IABP Augumented BP: Systemic BP: 120 mmHg CORONARY ANGIOGRAPHY DOMINANCE: Left Dominant LEFT HEART ASSESSMENT Left Ventricular Ejection Fraction: by LV Gram 35 % Global Hypokinesis - Moderate Depressed Left Ventricular systolic function LEFT MAIN: Angiographically normal LEFT ANTERIOR DESCENDING ARTERY: Mild luminal irregularities CIRCUMFLEX ARTERY: OSTIAL CIRC: is occluded RIGHT CORONARY ARTERY: Mild luminal irregularities less than 30% VALVE FINDINGS: Mitral Valve Insufficiency - Grade 4 COMPLICATIONS PROCEDURE MEDICATIONS Propofol 50 mg IV-Dr Malave Propofol 50 mg IV-Dr Malave Propofol 50 mg IV Succinylcholine 100 mg IV Propofol 25 mg IV Oxygen: 5 L/min via nasal cannula Oxygen: 100 % FiO2 via ventilator. See Resp Record for Settings Brilinta 180 mg PO 03/21/2022 13:26:50 Amiodarone 150 mg IVPB @ 03/21/2022 14:01:36 Heparin given IA 03/21/2022 13:11:05 Lasix 40 mg IV 03/21/2022 13:12:12 Heparin 800 unit(s) IV 03/21/2022 13:33:31 Lasix 40 mg IV 03/21/2022 13:43:50 SUMMARY OF HEMODYNAMIC DATA Time AIR REST ECG 12:44:06 Art 132/70 (89) 13:03:36 AO 109/72 (93) SA 13:11:56 LV 118/37, 49 13:22:29 LV 116/36, 47 13:22:36 Signed By Carmelo Lamas MD On 03/21/2022 14:08:26 Carmelo Lamas MD
--- NOTE | 2022-03-21 16:37 | CL.I_ITS ---
Patient Name: MIRIAN BALLARD Study Date: 03/21/2022 Performing: Inderjit Fontanez MD Ht: 71 inches 180.34 cm : 1960 Wt: 190.48 lbs 86.4 kg Age: 61 Gender: male BSA: 2.07 PROCEDURE(S) PERFORMED DC14-(55130)IABP INSERTION IC17-(62783)CORONARY MECHANICAL THROMBECTOMY (ANGIOJET,PENUMBRA) IC12-(55148/C9600)RENEE W/WO PTCA, SINGLE CORONARY ARTERY CLINICAL PROFILE AND CO-MORBIDITIES Indications: Suspected CAD Heart Failure: NYHA Class: 3, Newly Diagnosed: Yes, Heart Failure Type: Systolic Stress/Imaging Stress/Image Study Performed: No CONCLUSIONS Unsuccessful PCI of the Ostial LCX. Uanble to cross with wire Successful aspiration thrombectomy Mid LMCA Unable to cross ostial LCX with wire. Thrombus noted in LMCA. Successfully aspirated as noted above. Distal LAD embolization treated with RENEE as noted. RECOMMENDATIONS ASA Indefinitlerosa maria Brilinta for at least 12 months DESCRIPTION OF PROCEDURE The patient arrived to the procedure lab. The risks and benefits of the procedure as well as a full description of our services here and current unavailability of surgical backup were fully explained to the patient and/or their significant other prior to the catheterization. The Timeout was completed, verifying the correct patient and procedure. The patient's procedural site was prepped and draped in the usual fashion. Local anesthetic was given subcutaneously to right radial region with Lidocaine 2%. Local anesthetic was given subcutaneously to right groin region with Lidocaine 2%. Local anesthetic was given subcutaneously to right groin region with Lidocaine 2% Using a modified Seldinger technique,arterial access was obtained via the right radial artery, a 6Fr sheath was inserted., arterial access was obtained via the right femoral artery, a 6Fr sheath was inserted. Right Coronary Artery selective angiography was then performed in multiple views using a 5 Fr. 4.0 [place] catheter. Left Coronary Artery selective angiography was performed in multiple views using a 5 Fr. 4.0 [place] catheter. Left Ventriculography was performed in JACKSON projection using a 5 Fr. Pigtail catheter.Arrow 40cc 7.5F UltraFlex IABP - Qty: 1 Each Part #: 178, A 40cc IABP catheter was inserted into the right femoral artery, IABP settings: 1:1, IABP Augumented BP: 150 mmHg Systemic, IABP Augumented BP: Systemic BP: 120 mmHg XB 3.0 Guide catheter was inserted and engaged into the LCA. Runthrough Guide wire was advanced to the Circumflex. Whisper Guide wire was inserted as a flaquita wire Runthrough 300cm Guide wire was advanced to the Circumflex as a flaquita wire Systems Test Technician 300cm Guide wire was advanced to the Circumflex. Emerge 1.50x15 Balloon catheter was inserted on Systems Test Technician wire Choice extra support PT Guide wire was advanced to the Circumflex. Choice extra support PT Guide wire was advanced to the Circumflex. Emerge 3.00x8 Balloon catheter was inserted. Angiogram performed Angiogram performed post penumbra Emerge 2.25x20 Balloon catheter was inserted. PTCA balloon inflated at 6 atms for 20 secs. PTCA balloon inflated at 6 atms for 20 secs. PTCA balloon inflated at 6 atms for 20 secs. PTCA balloon inflated at 4 atms for 18 secs. Angiogram performed post balloon dilatation. Orsiro 2.25x30 Drug Eluting stent was inserted. Angiogram performed post stent deployment. Orsiro 2.5x9 Drug Eluting stent was inserted. Angiogram performed post stent deployment. The arterial sheath was pulled and a TR Band was applied for hemostasis w/ 9ml air INTERVENTION INFORMATION LESION SITE: Circumflex (Ostial) Lesion Complexity: High/C, culprit lesion: Yes Pre Stenosis: 100 % Pre intervention CAITLYN flow: 0 PROCEDURE: Failed attempt at PCI. Unabale to cross wire Post Stenosis: 100 % Post intervention CAITLYN flow: 0 Lesion Devices: Terumo .014 Runthrough Extra Floppy 180cm straight Cordis 6 Fr XB3.0 100cm Guide Catheter Brian Sci EMERGE OTW 1.50x15 BALLOON Brian Sci .014 Choice PT Xtra Support wire 182cm LESION SITE: Left Main (Mid) Lesion Complexity: High/C Pre Stenosis: 50 % Pre intervention CAITLYN flow: 3 PROCEDURE: Aspiraion thrombectomy Post Stenosis: 0 % Post intervention CAITLYN flow: 3 Lesion Devices: Terumo .014 Runthrough Extra Floppy 180cm straight Cordis 6 Fr XB3.0 100cm Guide Catheter Penumbra Indigo Penumbra CAT Rx 140cm large lumen LESION SITE: LAD (Mid) Lesion Complexity: High/C, thrombus present: Yes, culprit lesion: No, lesion length: 35 mm Pre Stenosis: 100 % Pre intervention CAITLYN flow: 0 PROCEDURE: Drug Eluting Stent with pre dilatation. 0 % Post intervention CAITLYN flow: 3 Lesion Devices: Terumo .014 Runthrough Extra Floppy 180cm straight Cordis 6 Fr XB3.0 100cm Guide Catheter Penumbra Indigo Penumbra CAT Rx 140cm large lumen Brian Sci EMERGE MR 2.25x20 BALLOON Biotronik Orsiro [place] MR RENEE 2.25x30 Biotronik Orsiro [place] MR RENEE 2.5x9 COMPLICATIONS No Complications PROCEDURE MEDICATIONS Propofol 50 mg IV-Dr Malave Propofol 50 mg IV-Dr Malave Propofol 50 mg IV Succinylcholine 100 mg IV Propofol 25 mg IV Versed 4 mg IV Fentanyl 100 mcg IV drip Versed 2 mg IV Versed 2 mg IV Versed 2 mg IV Versed 2 mg IV Oxygen: 5 L/min via nasal cannula Oxygen: 100 % FiO2 via ventilator. See Resp Record for Settings Brilinta 180 mg PO 03/21/2022 13:26:50 Amiodarone 150 mg IVPB 03/21/2022 14:01:36 Adenosine 48 mcg IC 03/21/2022 15:27:19 Adenosine 48 mcg IC @ 03/21/2022 15:41:55 Heparin given IA 03/21/2022 13:11:05 Lasix 40 mg IV 03/21/2022 13:12:12 Heparin 800 unit(s)/Hr IV 03/21/2022 13:33:31 Lasix 40 mg IV 03/21/2022 13:43:50 Heparin 6000 unit(s) IV 03/21/2022 14:08:05 Heparin 2000 unit(s) IV 03/21/2022 15:00:38 Heparin 4000 unit(s) IV 03/21/2022 15:10:49 Nitro 50 mcg IC 03/21/2022 15:37:30 Nitro 50 mcg IC 03/21/2022 15:37:30 SUMMARY OF HEMODYNAMIC DATA Time AIR REST ECG 12:44:06 Art 132/70 (89) 13:03:36 AO 109/72 (93) SA 13:11:56 LV 118/37, 49 13:22:29 LV 116/36, 47 13:22:36 AO 80/62 (70) 14:16:28 ECG 15:21:30 AO 125/82 (99) 15:22:54 AO 101/66 (81) 15:51:10 16:33:16 Signed By Inderjit Fontanez MD On 03/21/2022 16:37:24 Inderjit Fontanez MD
[2022-03-21 16:48] LABS: ACT Activated Clotting Time 167 sec (74-137)
[2022-03-21 16:49] LABS: ACT Activated Clotting Time 492 sec (74-137)
[2022-03-21 16:50] LABS: ACT Activated Clotting Time 242 sec (74-137)
--- NOTE | 2022-03-21 17:07 | EKG12_ITS ---
Test Reason : AM EKG Blood Pressure : / mmHG Vent. Rate : 088 BPM Atrial Rate : 088 BPM P-R Int : 144 ms QRS Dur : 096 ms QT Int : 364 ms P-R-T Axes : 057 036 056 degrees QTc Int : 440 ms Sinus rhythm with frequent Premature ventricular complexes Low voltage QRS Nonspecific ST and T wave abnormality Abnormal ECG Confirmed by ANIBAL PINEDA, ESTHER ([id number]), food editor EVERARDO DAO ([id number]) on 03/23/2022 8:04:00 AM Referred By: AN Confirmed By:ESTHER BARNETT MD
[2022-03-21 17:15] LABS: Base Excess 2 mmol/L (-2 to +2); Bicarbonate 26.2 mmol/L (22-26); Blood Gas Specimen Type ART; FI02 85; Mode AC; O2 Delivery Device Adult Vent; PEEP 5; PO2 113 mmHG (75-100); RR 14; SITE Central Line; SO2 99 % (95-99); Total Carbon Dioxide 27 mmol/L; Vt 500; pCO2 39.5 mmHg (35-45); pH 7.43 (7.35-7.45)
[2022-03-21] MEDS: 0.9% Normal Saline 1,000 ML 75 ML IV (18:00)
[2022-03-21 18:28] LABS: Hematocrit 39.8 % (40-54); Hemoglobin 13.7 g/dL (13.0-16.5); Mean Corp Hgb Conc 34.4 g/dL (32-36); Mean Corpuscular Hgb 32.9 pg (27.0-32.0); Mean Corpuscular Volume 95.7 fL (80-94); Platelet Count 247 K/mm3 (150-450); RBC Distribution Width CV 12.6 % (11.6-14.6); RBC Distribution Width SD 43.8 fl (35.1-43.9); Red Blood Count 4.16 M/mm3 (4.6-6.2)
[2022-03-21] MEDS: HEPARIN/D5w 25,000 UNITS 25,000 UNITS/250 ML IV.SOLN. 10 UNITS CONT INF (21:43)
[2022-03-21] MEDS: TITRATION PARAMETER CHANGE 1 EACH IV (21:44)
[2022-03-21] MEDS: Chlorhexidine 15 ML PO (21:52)
--- NOTE | 2022-03-21 22:00 | RAD_ITS ---
INDICATION: OG Placement EXAMINATION/TECHNIQUE: X-RAY - XR Abdomen 1 View COMPARISON: None FINDINGS: The tip of the orogastric tube projects over the distal stomach. Several loops of small bowel are mildly distended within the lower abdomen/pelvis. Excreted contrast within the kidneys bilaterally. Elevation of the right hemidiaphragm. Bilateral pulmonary opacities described in the chest x-ray report from the same day. RAD/Abdomen Single View (Portable) IMPRESSION: Tip of the orogastric tube projects over the distal stomach. Electronically Signed: Yamil Meneses MD at 4:04 EST ,
[2022-03-22] VITALS (46 sets, daily range): BP systolic 80–109; BP diastolic 48–86; PULSE 68–127; RESP 12–16; TEMP 37.6–37.9; O2SAT 91–98
[2022-03-22] MEDS: Propofol 10MG/Ml 1,000 MG/100 ML Bottle 10.4 MG CONT INF (01:00)
[2022-03-22 03:57] LABS: Absolute Lymphocyte Count 1.39 X10^3/uL (0.83-4.51); Absolute Neutrophil Count 10.4 X10^3/uL (2.0-7.7); Basophil# 0.04 X10^3/uL; Basophil% 0.3 % (0-1); Eosinophil# 0.03 X10^3/uL; Eosinophils% 0.2 % (0-5); Hematocrit 40.8 % (40-54); Hemoglobin 13.5 g/dL (13.0-16.5); Lymphocyte # 1.39 X10^3/ul (0.83-4.51); Lymphocyte % 9.6 % (19-41); Mean Corp Hgb Conc 33.1 g/dL (32-36); Mean Corpuscular Hgb 31.8 pg (27.0-32.0); Mean Platelet Vol. 11.6 fl (6.2-12.0); Monocyte# 2.44 X10^3/uL; Monocyte% 16.8 % (0-10); NRBC Flagged by Analyzer 0 % (0-5); Neutrophil # 10.39 X10^3/uL (2.7-7.7); Neutrophil % 71.4 % (47-70); POSITIVE DIFFERENTIAL YES; Platelet Count 317 K/mm3 (150-450); RBC Distribution Width CV 12.6 % (11.6-14.6); RBC Distribution Width SD 44.5 fl (35.1-43.9); Red Blood Count 4.25 M/mm3 (4.6-6.2); White Blood Count 14.5 K/mm3 (4.4-11.0)
[2022-03-22 04:01] LABS: Differential Indicated SCAN CRITERIA MET
[2022-03-22 04:13] LABS: Partial Thromboplast Time 46.4 Seconds (24.1-36.2)
[2022-03-22 04:22] LABS: ALB/GLOB Ratio 0.6 RATIO (0.9-2.4); AST(SGOT) 52 U/L (15-37); Alanine Aminotransfer ALT/SGPT 53 U/L (16-61); Albumin, Serum 2.4 g/dL (3.2-5.0); Alkaline Phosphatase 145 U/L (45-117); Anion Gap 9 (5-15); BUN 21 mg/dL (7-18); BUN/Creat Ratio 22.1 RATIO (10-20); Chloride 102 mmol/L (98-107); Creatinine, Serum 0.95 mg/dL (0.70-1.30); EST Glomerular Filtration Rate 85 mL/min (>60); Est Glom Filt Rate - Afr Amer 103 mL/min (>60); Estimated Creatinine Clearance 85.87 ml/min; Globulin 3.7 g/dL (2.2-4.2); Glucose 135 mg/dL (74-106); Potassium 3.8 mmol/L (3.5-5.1); Protein, Total 6.1 g/dL (6.4-8.2); Sodium Level 140 mmol/L (136-145)
--- NOTE | 2022-03-22 04:58 | NURSING ---
Last night at 2145 OG was placed in order to administer Atorvastatin and Brilinta that Dr. Fontanez had ordered. Air bolus was given and gurgles were auscultated over abdomen. KUB was ordered to verify placement. Patient tolerated procedure well. KUB was completed at 2200. 0000- I called radiology and spoke with Laura about KUB being read. She said the order wasn't placed as STAT so it hasn't been read yet but she would send it over to be read. 0400- Called again to check on status of film report. Film was read and report was completed at 0404 saying that the tip of the orogastric tube was in the distal stomach. Message was sent to Dr. Phan to review report and make sure OG was ok to administer medications through.
--- NOTE | 2022-03-22 06:00 | RAD_ITS ---
INDICATION: Intra aortic balloon EXAMINATION/TECHNIQUE: X-RAY - XR Chest 1 View COMPARISON: None. FINDINGS: A single frontal view of the chest was obtained. The endotracheal tube terminates 3 cm above the raissa. The orogastric tube courses below the diaphragm. The tip is not included on the examination. The marker of the intra-aortic balloon pump projects over the proximal descending aorta approximately 3 cm below the superior margin of the aortic arch. The cardiac silhouette is normal in size. There is elevation of the right hemidiaphragm as before. Opacities in the lungs bilaterally are grossly similar to the prior chest x-ray. No pneumothorax. RAD/Chest 1 View (Portable) IMPRESSION: The distal marker of the balloon pump projects over the proximal descending thoracic aorta approximately 3 cm below the superior margin of the aortic arch. Bilateral pulmonary opacities are grossly stable since the prior exam. Electronically Signed: Yamil Meneses MD at 7:06 EST ,
[2022-03-22] MEDS: TITRATION PARAMETER CHANGE 1 EACH IV ×2 (06:44→11:20)
[2022-03-22] MEDS: Ipratropium/Albuterol Sulfate 3 ML AMPUL.NEB INHALATION ×4 (07:04→18:35)
--- NOTE | 2022-03-22 07:10 | ECHOL_ITS ---
Reason For Study: CAD, Assess LV fx, MR Procedure This was a limited 2D transthoracic echocardiogram. Patient scanned supine on vent and balloon pump. Exam performed portable in ICU/CCU. Left Ventricle Normal LV size. Mild to moderate segmental systolic dysfunction (see wall motion). The estimated ejection fraction is 45 %. Mid-Lateral : Akinetic. Posterior-Basal: Severely hypokinetic. Infero- Basal: Akinetic. Lateral-Basal: Akinetic. Right Ventricle Normal RV size. Normal systolic function. Mitral Valve Normal mitral valve. Moderately severe (3+) eccentric mitral valve insufficiency. Tricuspid Valve Normal tricuspid valve. Mild (1+) tricuspid valve insufficiency. Aortic Valve Trisinus/trileaflet aortic valve. Great Vessels Normal aortic root. Pericardium/Pleural No pericardial effusion. MMode/2D Measurements & Calculations LVIDd: 5.2 cm IVSd: 0.90 cm LAV(MOD-bp): 38.4 ml LVIDs: 4.4 cm LVPWd: 1.1 cm LAV(MOD-bp) Indexed: 18.6 ml/m2 RVDd: 3.5 cm FS: 16.5 % LAV(MOD-sp2): 38.5 ml LAV(MOD-sp4): 37.5 ml LVAd ap4: 33.9 cm2 LVAd ap2: 29.6 cm2 SV(MOD-sp4): 46.0 ml LVLd ap4: 7.9 cm LVLd ap2: 8.0 cm EDV(MOD-sp4): 121.0 ml EDV(MOD-sp2): 95.1 ml EDV(sp4-el): 122.9 ml EDV(sp2-el): 92.5 ml LVAs ap4: 24.8 cm2 LVAs ap2: 20.0 cm2 LVLs ap4: 7.4 cm LVLs ap2: 7.0 cm ESV(MOD-sp4): 75.0 ml ESV(MOD-sp2): 53.6 ml ESV(sp4-el): 70.1 ml ESV(sp2-el): 48.4 ml EF(MOD-sp4): 38.0 % EF(MOD-sp2): 43.6 % EF(sp4-el): 42.9 % SV(MOD-sp2): 41.4 ml SV(sp4-el): 52.8 ml LA A4 area: 15.5 cm2 LA dimension(2D): 4.2 cm RA A4 area: 13.0 cm2 Doppler Measurements & Calculations TR max sendy: 278.3 cm/sec TR max P.0 mmHg ECHO/Echo, Limited Study Interpretation Summary Normal LV size. Mild to moderate segmental systolic dysfunction (see wall motion). The estimated ejection fraction is 45 %. Mid-Lateral : Akinetic. Moderately severe (3+) eccentric mitral valve insufficiency. Compared to previous the above is unchanged. Ordering Physician: Carmelo Lamas Referring Physician: Moshe Sanchez MD Performed By: Augusta Biggs RDCS
--- NOTE | 2022-03-22 07:12 | PN.CARD_ITS ---
Subjective Subjective Patient was seen and evaluated. Events of last night discussed with nurses. Appears to be stable at this time. Still on intra-aortic balloon pump with one-to-one and intubated Objective Data Vital Signs: Vital Signs Temp Pulse Resp BP Pulse Ox O2 Del Method O2 Flow Rate 100.3 F H 72 14 99/77 95 Mechanical Ventilator 5 03/22/22 04:00 03/22/22 07:06 03/22/22 07:06 03/22/22 06:00 03/22/22 07:06 03/22/22 06:00 03/21/22 12:00 FiO2 35 03/22/22 07:06 Oxygen Flow Rate (L/min) 5 Oxygen Delivery Method Mechanical Ventilator Weight: 190 lb 11.198 oz Body Mass Index (BMI) 26.8 Intake & Output: Intake and Output for Last 24 Hours 03/20/22 03/21/22 03/22/22 23:59 23:59 23:59 Intake Total 2040.72 / 2040.72 721.04 / 755.84 341.75 / 341.75 Output Total 2100 / 2350 1000 / 1000 Balance 2040.72 / 2040.72 -1378.96 / -1594.16 -658.25 / -658.25 Lab / Micro Data Result Diagrams: 03/22/22 03:40 03/22/22 03:40 Labs: Laboratory Results - last 24 hr 03/21/22 11:28: APTT 30.4 03/21/22 14:05: Activated Clotting Time 167 H 03/21/22 15:12: Activated Clotting Time 492 H 03/21/22 16:05: Activated Clotting Time 242 H 03/21/22 18:10: WBC 11.0, RBC 4.16 L, Hgb 13.7, Hct 39.8 L, MCV 95.7 H, MCH 32.9 H, MCHC 34.4, RDW Std Deviation 43.8, RDW Coeff of Andrew 12.6, Plt Count 247, MPV 12.0 03/22/22 03:40: WBC 14.5 H, RBC 4.25 L, Hgb 13.5, Hct 40.8, MCV 96.0 H, MCH 31.8, MCHC 33.1, RDW Std Deviation 44.5 H, RDW Coeff of Andrew 12.6, Plt Count 317, MPV 11.6, Immature Gran % (Auto) 1.700 H, Neut % (Auto) 71.4 H, Lymph % (Auto) 9.6 L, [place]ack[place] % (Auto) 16.8 H, Eos % (Auto) 0.2, Baso % (Auto) 0.3, Absolute Neuts (auto) 10.4 H, Absolute Lymphs (auto) 1.39, Nucleated RBC % 0, Diff Path Review September03/22/22 03:40: Sodium 140, Potassium 3.8, Chloride 102, Carbon Dioxide 29.0, Anion Gap 9, BUN 21 H, Creatinine 0.95, Estim Creat Clear Calc 85.87, Est GFR (MDRD) Af Amer 103, Est GFR (MDRD) Non-Af 85, BUN/Creatinine Ratio 22.1 H, Glucose 135 H, Calcium 8.0 L, Total Bilirubin 0.80, AST 52 H, ALT 53, Alkaline Phosphatase 145 H, Total Protein 6.1 L, Albumin 2.4 L, Globulin 3.7, Albumin/Globulin Ratio 0.6 L 03/22/22 03:40: APTT 46.4 H ABG Data ABG results: ABG 03/21/22 17:11 Specimen Type ART Sample Site Central Line pH 7.43 Bicarbonate Actual 26.2 H Total CO2 27 Base Excess 2 O2 Saturation 99 O2 % 85 ABG pCO2 39.5 ABG pO2 113 H Cameron Test N/A Respiration Rate 14 O2 Delivery Device Adult Vent Vent Mode AC Tidal Volume 500 POC PEEP 5 Rhythm Strip Rhythm Strip: Sinus Rhythm Cardiology Labs/Tests 03/21/22 11:28: APTT 30.4 03/21/22 17:11: pH 7.43, Bicarbonate Actual 26.2 H, Base Excess 2, O2 Saturation 99, ABG pCO2 39.5, ABG pO2 113 H, Cameron Test N/A 03/21/22 18:10: WBC 11.0, RBC 4.16 L, Hgb 13.7, Hct 39.8 L, MCV 95.7 H, MCH 32.9 H, MCHC 34.4, Plt Count 247, MPV 12.0 03/22/22 03:40: WBC 14.5 H, RBC 4.25 L, Hgb 13.5, Hct 40.8, MCV 96.0 H, MCH 31.8, MCHC 33.1, Plt Count 317, MPV 11.6, Immature Gran % (Auto) 1.700 H, Neut % (Auto) 71.4 H, Lymph % (Auto) 9.6 L, [place] % (Auto) 16.8 H, Eos % (Auto) 0.2, Baso % (Auto) 0.3, Absolute Neuts (auto) 10.4 H, Nucleated RBC % 0 03/22/22 03:40: Sodium 140, Potassium 3.8, Chloride 102, Carbon Dioxide 29.0, Anion Gap 9, BUN 21 H, Creatinine 0.95, Est GFR (MDRD) Af Amer 103, Est GFR (MDRD) Non-Af 85, BUN/Creatinine Ratio 22.1 H, Glucose 135 H, Calcium 8.0 L, Total Bilirubin 0.80 03/22/22 03:40: APTT 46.4 H Rhythm: EKG: ECHO: Stress Test: Cardiac Cath: PCI: CT Surgery: Holter monitor: EPS: PPM: CXR: Chest CT Scan: Radiography Diagnostic Testing: Radiology Impression Echocardiogram 03/20/22 08:52 Interpretation Summary Normal LV size. The estimated ejection fraction is 45 %. Mild to moderate segmental systolic dysfunction (see wall motion). Moderately severe (3+) eccentric mitral valve insufficiency. Pulmonary artery systolic pressure is 60 mmHg. Moderate pulmonary hypertension. Ordering Physician: Carmelo Lamas Referring Physician: Moshe Sanchez MD Performed By: Aylin Thurston, RDCS, RVT Chest X-Ray 03/21/22 06:31 IMPRESSION: Worsening airspace opacities in both lungs. No other change from prior. Electronically Signed: Tomas Oscar MD at 17:42 EST , KUB X-Ray 03/21/22 22:00 IMPRESSION: Tip of the orogastric tube projects over the distal stomach. Electronically Signed: Yamil Meneses MD at 4:04 EST , Chest X-Ray 03/22/22 06:00 IMPRESSION: The distal marker of the balloon pump projects over the proximal descending thoracic aorta approximately 3 cm below the superior margin of the aortic arch. Bilateral pulmonary opacities are grossly stable since the prior exam. Electronically Signed: Yamil Meneses MD at 7:06 EST , Physical Exam Const Constitutional Narrative: Intubated Neck no JVD Carotids: normal carotid upstroke Chest inspection of chest normal Cardio regular rate and regular rhythm Rhythm: regular rhythm Heart Sounds: S1 normal, S2 normal and murmur Extremity normal to inspection Skin no rashes or lesions noted Neuro Neuro Narrative: Sedated Assessment & Plan Assessment/Plan (1) Acute non-ST elevation myocardial infarction (NSTEMI): PLAN: He does present with mild shortness of breath and is noted to have an elevated troponin level. He also has EKG changes suggestive of coronary ischemi a. He underwent cardiac catheterization yesterday which demonstrated evidence of a totally occluded left circumflex artery. LAD was noted to be patent and right coronary artery was nondominant. His ejection fraction was markedly reduced with severe mitral regurgitation. He underwent attempted angioplasty of the circumflex artery which was unsuccessful. He eventually developed some clots in the LAD which had to be treated. He had an intra-aortic balloon pump placed as well as being intubated. This morning he appears to be fairly stable maintaining blood pressures on sedation. Will reevaluate his left ventricular function with an echocardiogram. * The plan today will be to keep him on his anticoagulation * Wean him off the Integrilin * Continue aspirin and ticagrelor * Continue sedation as well as the intra-aortic balloon pump and see how he does (2) CHF (congestive heart failure): PLAN: He does present with shortness of breath and is noted to have chest x-ray findings which are compatible with congestive heart failure. Will obtain a repeat echocardiogram to assess his mitral regurgitation. Overall prognosis at this time is guarded. Thank you for allowing me to participate in the care of your patient. Please don't hesitate to call if any issues arise.
[2022-03-22] MEDS: Propofol 10MG/Ml 1,000 MG/100 ML Bottle 15.6 MG CONT INF ×4 (07:18→22:29)
--- NOTE | 2022-03-22 07:26 | PN.CC_ITS ---
Assessment & Plan Assessment/Plan (1) Acute non-ST elevation myocardial infarction (NSTEMI): (2) Acute hypoxemic respiratory failure: PLAN: Plan RECOMMENDATIONS: 1. Continue to wean FiO2 and PEEP to maintain saturations at or above 90%. 2. Continue Levophed to maintain a mean arterial pressure at or above 65 mmHg. 3. Continue empiric antimicrobials. 4. Intra-aortic balloon pump management, per cardiology. 5. Propofol and fentanyl for sedation. Goal to maintain a RASS of -1 to 1. 6. Continue appropriate GI prophylaxis. IMPRESSIONS: 1. Acute hypoxemic respiratory failure in the setting of acute coronary syndrome The patient's cardiac catheterization revealed a totally occluded left circumflex artery, along with moderately severe mitral regurgitation. Attempted angioplasty of the circumflex artery was unsuccessful. Intra-aortic balloon pump was placed. The patient was ultimately intubated in the cardiac catheterization lab due to impending respiratory failure. He is doing well from a respiratory perspective this morning. Plan to continue current supportive measures including invasive mechanical ventilation with a goal to wean FiO2 and PEEP to maintain saturations at or above 90%. The patient was also started emp irically on antimicrobials, pending sputum culture results. Plan to continue propofol and fentanyl for sedation. Attempts will be undertaken to extubate the patient once a definitive plan from cardiology has been put into place regarding intra-aortic balloon pump management. 2. Cardiogenic shock Plan to continue Levophed to maintain a mean arterial pressure at or above 65 mmHg. Cardiology is following to assist with medical management. 3. Rhinovirus URI Continue supportive measures as noted above. TIME: 34 minutes of critical care time, independent of procedures, was spent addressing the patient's acute hypoxemic respiratory failure, acute coronary syndrome, cardiogenic shock, rhinovirus URI, review of all data and collaboration with the care team. Subjective Subjective The patient was seen and examined at the bedside this morning. Events from the last 24 hours have been reviewed. The patient is currently on Levophed at 5 mcg/min to maintain hemodynamic stability. He remains on assist control mode mechanical ventilation with an FiO2 requirement of 35% and PEEP of 5. Intra- aortic balloon pump remains in place augmenting at 1:1. The patient is sedated on propofol and fentanyl. White count is elevated at 15,000. Objective Data Objective Data The patient's most recent lab work, culture data and imaging studies have all been personally reviewed. Surface echocardiogram dated March 21 demonstrated an ejection fraction of 45% with moderately severe mitral valve insufficiency and a pulmonary artery systolic pressure of 60 mmHg. Respiratory viral panel was positive for rhinovirus. Vital Signs: Vital Signs Temp Pulse Resp BP Pulse Ox O2 Del Method O2 Flow Rate 100.3 F H 72 14 99/77 95 Mechanical Ventilator 5 03/22/22 04:00 03/22/22 07:06 03/22/22 07:06 03/22/22 06:00 03/22/22 07:06 03/22/22 06:00 03/21/22 12:00 FiO2 35 03/22/22 07:06 Oxygen Flow Rate (L/min) 5 Oxygen Delivery Method Mechanical Ventilator Weight: 190 lb 11.198 oz Body Mass Index (BMI) 26.8 Intake & Output: Intake and Output for Last 24 Hours 03/20/22 03/21/22 03/22/22 23:59 23:59 23:59 Intake Total 2040.72 / 2040.72 721.04 / 755.84 362.03 / 362.03 Output Total 2100 / 2350 1000 / 1000 Balance 2040.72 / 2040.72 -1378.96 / -1594.16 -637.97 / -637.97 Lab / Micro Data Attestation: I reviewed the patient's lab results. Result Diagrams: 03/22/22 03:40 03/22/22 03:40 Labs: Laboratory Results - last 24 hr 03/21/22 11:28: APTT 30.4 03/21/22 14:05: Activated Clotting Time 167 H 03/21/22 15:12: Activated Clotting Time 492 H 03/21/22 16:05: Activated Clotting Time 242 H 03/21/22 18:10: WBC 11.0, RBC 4.16 L, Hgb 13.7, Hct 39.8 L, MCV 95.7 H, MCH 32.9 H, MCHC 34.4, RDW Std Deviation 43.8, RDW Coeff of Andrew 12.6, Plt Count 247, MPV 12.0 03/22/22 03:40: WBC 14.5 H, RBC 4.25 L, Hgb 13.5, Hct 40.8, MCV 96.0 H, MCH 31.8, MCHC 33.1, RDW Std Deviation 44.5 H, RDW Coeff of Andrew 12.6, Plt Count 317, MPV 11.6, Immature Gran % (Auto) 1.700 H, Neut % (Auto) 71.4 H, Lymph % (Auto) 9.6 L, [place] % (Auto) 16.8 H, Eos % (Auto) 0.2, Baso % (Auto) 0.3, Absolute Neuts (auto) 10.4 H, Absolute Lymphs (auto) 1.39, Nucleated RBC % 0, Diff Path Review September03/22/22 03:40: Sodium 140, Potassium 3.8, Chloride 102, Carbon Dioxide 29.0, Anion Gap 9, BUN 21 H, Creatinine 0.95, Estim Creat Clear Calc 85.87, Est GFR (MDRD) Af Amer 103, Est GFR (MDRD) Non-Af 85, BUN/Creatinine Ratio 22.1 H, Glucose 135 H, Calcium 8.0 L, Total Bilirubin 0.80, AST 52 H, ALT 53, Alkaline Phosphatase 145 H, Total Protein 6.1 L, Albumin 2.4 L, Globulin 3.7, Albumin/Globulin Ratio 0.6 L 03/22/22 03:40: APTT 46.4 H Micro: Microbiology 03/20/22 11:02 Interface Orders Respiratory Panel (PCR) - Final Rhinovirus 03/20/22 09:56 Urine, Clean Catch Legionella Antigen - Final 03/20/22 09:56 Urine, Clean Catch Streptococcus pneumoniae Antigen (M - Final 03/20/22 09:58 Nasal Secretion SARS-CoV-2 Antigen (Rapid) - Final 03/20/22 09:02 Nasal Secretion SARS-CoV-2 Antigen (Rapid) - Final ABG Data ABG results: ABG 03/21/22 17:11 Specimen Type ART Sample Site Central Line pH 7.43 Bicarbonate Actual 26.2 H Total CO2 27 Base Excess 2 O2 Saturation 99 O2 % 85 ABG pCO2 39.5 ABG pO2 113 H Cameron Test N/A Respiration Rate 14 O2 Delivery Device Adult Vent Vent Mode AC Tidal Volume 500 POC PEEP 5 Radiography Diagnostic Testing: Radiology Impression Echocardiogram 03/20/22 08:52 Interpretation Summary Normal LV size. The estimated ejection fraction is 45 %. Mild to moderate segmental systolic dysfunction (see wall motion). Moderately severe (3+) eccentric mitral valve insufficiency. Pulmonary artery systolic pressure is 60 mmHg. Moderate pulmonary hypertension. Ordering Physician: Carmelo Lamas Referring Physician: Moshe Sanchez MD Performed By: Aylin Thurston, ALDAIR, RVT Chest X-Ray 03/21/22 06:31 IMPRESSION: Worsening airspace opacities in both lungs. No other change from prior. Electronically Signed: Tomas Oscar MD at 17:42 EST , KUB X-Ray 03/21/22 22:00 IMPRESSION: Tip of the orogastric tube projects over the distal stomach. Electronically Signed: Yamil Meneses MD at 4:04 EST , Chest X-Ray 03/22/22 06:00 IMPRESSION: The distal marker of the balloon pump projects over the proximal descending thoracic aorta approximately 3 cm below the superior margin of the aortic arch. Bilateral pulmonary opacities are grossly stable since the prior exam. Electronically Signed: Yamil Meneses MD at 7:06 EST , Rhythm Strip Rhythm Strip: Sinus Rhythm Physical Exam Const Constitutional Narrative: Intubated, sedated and mechanically ventilated. No ventilator dyssynchrony noted. HEENT normocephalic and head/scalp atraumatic Mouth: endotracheal tube in place and OG tube in place Eyes PERRL and EOMs intact bilaterally Neck supple General: trachea midline Chest inspection of chest normal Resp Auscultation: Negative for rales, rhonchi or wheezes Cardio regular rate and regular rhythm Cardio Narrative: Intra-aortic balloon pump in place GI normal to inspection, nondistended, normoactive bowel sounds Extremity no clubbing, cyanosis or edema Skin no rashes or lesions noted Neuro Sensorium / Orientation: sedated on vent Charges/Coding Procedures Hospitalists Procedures: 29381 Critial Care 1st Hr
--- NOTE | 2022-03-22 07:27 | PN.HOSP_ITS ---
Subjective Subjective Patient underwent LHC on 03/21/2022 which demonstrated totally occluded left circumflex artery, patent LAD and and a nondominant right coronary artery. ? His ejection fraction was markedly reduced with severe mitral regurgitation. An attempted angioplasty of the circumflex artery was unsuccessful. He apparently developed some clots in the LAD which was treated he had IABP and was intubated and transferred to the intensive care unit Objective Data Objective Data Vital Signs: Vital Signs Temp Pulse Resp BP Pulse Ox O2 Del Method O2 Flow Rate 100.3 F H 72 14 99/77 95 Mechanical Ventilator 5 03/22/22 04:00 03/22/22 07:06 03/22/22 07:06 03/22/22 06:00 03/22/22 07:06 03/22/22 06:00 03/21/22 12:00 FiO2 35 03/22/22 07:06 Oxygen Flow Rate (L/min) 5 Oxygen Delivery Method Mechanical Ventilator Weight: 86.5 kg Body Mass Index (BMI) 26.8 Intake & Output: Intake and Output for Last 24 Hours 03/20/22 03/21/22 03/22/22 23:59 23:59 23:59 Intake Total 2040.72 / 2040.72 721.04 / 755.84 362.03 / 362.03 Output Total 2100 / 2350 1000 / 1000 Balance 2040.72 / 2040.72 -1378.96 / -1594.16 -637.97 / -637.97 Lab / Micro Data Result Diagrams: 03/22/22 03:40 03/22/22 03:40 Labs: Laboratory Results - last 24 hr 03/21/22 11:28: APTT 30.4 03/21/22 14:05: Activated Clotting Time 167 H 03/21/22 15:12: Activated Clotting Time 492 H 03/21/22 16:05: Activated Clotting Time 242 H 03/21/22 18:10: WBC 11.0, RBC 4.16 L, Hgb 13.7, Hct 39.8 L, MCV 95.7 H, MCH 32.9 H, MCHC 34.4, RDW Std Deviation 43.8, RDW Coeff of Andrew 12.6, Plt Count 247, MPV 12.0 03/22/22 03:40: WBC 14.5 H, RBC 4.25 L, Hgb 13.5, Hct 40.8, MCV 96.0 H, MCH 31.8, MCHC 33.1, RDW Std Deviation 44.5 H, RDW Coeff of Andrew 12.6, Plt Count 317, MPV 11.6, Immature Gran % (Auto) 1.700 H, Neut % (Auto) 71.4 H, Lymph % (Auto) 9.6 L, [place] % (Auto) 16.8 H, Eos % (Auto) 0.2, Baso % (Auto) 0.3, Absolute Neuts (auto) 10.4 H, Absolute Lymphs (auto) 1.39, Nucleated RBC % 0, Diff Path Review September03/22/22 03:40: Sodium 140, Potassium 3.8, Chloride 102, Carbon Dioxide 29.0, Anion Gap 9, BUN 21 H, Creatinine 0.95, Estim Creat Clear Calc 85.87, Est GFR (MDRD) Af Amer 103, Est GFR (MDRD) Non-Af 85, BUN/Creatinine Ratio 22.1 H, Glucose 135 H, Calcium 8.0 L, Total Bilirubin 0.80, AST 52 H, ALT 53, Alkaline Phosphatase 145 H, Total Protein 6.1 L, Albumin 2.4 L, Globulin 3.7, Albumin/Globulin Ratio 0.6 L 03/22/22 03:40: APTT 46.4 H Micro: Microbiology 03/20/22 11:02 Interface Orders Respiratory Panel (PCR) - Final Rhinovirus 03/20/22 09:56 Urine, Clean Catch Legionella Antigen - Final 03/20/22 09:56 Urine, Clean Catch Streptococcus pneumoniae Antigen (M - Final 03/20/22 09:58 Nasal Secretion SARS-CoV-2 Antigen (Rapid) - Final 03/20/22 09:02 Nasal Secretion SARS-CoV-2 Antigen (Rapid) - Final ABG Data ABG results: ABG 03/21/22 17:11 Specimen Type ART Sample Site Central Line pH 7.43 Bicarbonate Actual 26.2 H Total CO2 27 Base Excess 2 O2 Saturation 99 O2 % 85 ABG pCO2 39.5 ABG pO2 113 H Cameron Test N/A Respiration Rate 14 O2 Delivery Device Adult Vent Vent Mode AC Tidal Volume 500 POC PEEP 5 Radiography Diagnostic Testing: Radiology Impression Echocardiogram 03/20/22 08:52 Interpretation Summary Normal LV size. The estimated ejection fraction is 45 %. Mild to moderate segmental systolic dysfunction (see wall motion). Moderately severe (3+) eccentric mitral valve insufficiency. Pulmonary artery systolic pressure is 60 mmHg. Moderate pulmonary hypertension. Ordering Physician: Carmelo Lamas Referring Physician: Moshe Sanchez MD Performed By: Aylin Thurston, ALDAIR, RVT Chest X-Ray 03/21/22 06:31 IMPRESSION: Worsening airspace opacities in both lungs. No other change from prior. Electronically Signed: Tomas Oscar MD at 17:42 EST , KUB X-Ray 03/21/22 22:00 IMPRESSION: Tip of the orogastric tube projects over the distal stomach. Electronically Signed: Yamil Meneses MD at 4:04 EST , Chest X-Ray 03/22/22 06:00 IMPRESSION: The distal marker of the balloon pump projects over the proximal descending thoracic aorta approximately 3 cm below the superior margin of the aortic arch. Bilateral pulmonary opacities are grossly stable since the prior exam. Electronically Signed: Yamil Meneses MD at 7:06 EST , Rhythm Strip Rhythm Strip: Sinus Rhythm Physical Exam Narrative GENERAL: Patient sedated on the vent HEENT: Atraumatic; normocephalic EYES; Anicteric, Normal Conjunctiva NECK; supple, normal thyroid, RESPIRATORY: Diminished to auscultation CARDIOVASCULAR: Regular S1 S2, GI: soft, normoactive bowel sounds, : No Renal angle tenderness; EXTREMITIES: No edema, no clubbing, MUSCULOSKELETAL: no muscle wasting NEURO: Sedated on the vent SKIN: No Rash PSYCH; sedated on the vent Assessment & Plan Assessment/Plan (1) Acute non-ST elevation myocardial infarction (NSTEMI): PLAN: Plan Patient is a 62-year-old gentleman presented with progressive shortness of breath. An assessment of acute hypoxia secondary to flash pulmonary edema as well as acute non-STEMI made admitted to a monitored bed for further management 1. Acute hypoxia - secondary to flash pulmonary edema. Patient was managed with diuretics admitted to a monitored bed placed on supplemental oxygen titrated to keep saturation greater than 90 ? Patient ended up being intubated following his left heart catheterization on 03/21/2022 2. Acute non-STEMI ? Patient EKG demonstrated ST segment depression in V2 to V3 with T wave inversions in V4?V5 V6. His troponin was markedly elevated at 19,000. Treatment initiated per protocol. Consult placed to cardiology plans for patient to undergo left heart catheterization with intervention if needed Patient underwent LHC on 03/21/2022 which demonstrated totally occluded left circumflex artery, patent LAD and and a nondominant right coronary artery. ? His ejection fraction was markedly reduced with severe mitral regurgitation. An attempted angioplasty of the circumflex artery was unsuccessful. He apparently developed some clots in the LAD which was treated he had IABP and was intubated and transferred to the intensive care unit 3. Cardiogenic shock IABP in place as well as patient being on Levophed 4. Mechanical ventilation ? Patient was intubated following his LHC. Vent management deferred to pulmonary/critical care medicine 5. Valvular heart disease -with severe mitral valve regurgitation 6. Bilateral pulmonary infiltrate ? Secondary to rhinovirus infection patient treated symptomatically. Patient was empirically started on ceftriaxone and azithromycin for suspected superimposed bacterial pneumonia, given his elevated WBC count 7. Elevated transaminitis ? Suspected to be secondary to patient acute non-STEMI monitoring 8. DVT prophylaxis ? Patient is on heparin Charges/Coding Visit Charges Inpatient E&M: 62310 Subs Hosp L3
[2022-03-22 08:02] LABS: Pathologist Review Reviewed
[2022-03-22 08:07] LABS: Pathologist Review Reviewed
[2022-03-22 08:16] LABS: ACT Activated Clotting Time 161 sec (74-137)
--- NOTE | 2022-03-22 10:00 | EKG12_ITS ---
Test Reason : ADMITT PCU Blood Pressure : / mmHG Vent. Rate : 084 BPM Atrial Rate : 084 BPM P-R Int : 156 ms QRS Dur : 096 ms QT Int : 376 ms P-R-T Axes : 061 047 -47 degrees QTc Int : 444 ms Normal sinus rhythm Low voltage QRS (Limb Leads) ST depression, consider subendocardial injury Nonspecific T wave abnormality Abnormal ECG Confirmed by ANIBAL PINEDA, ESTHER ([id number]), editorial manager EVERARDO DAO ([id number]) on 03/23/2022 1:17:35 PM Referred By: GAEL Confirmed By:ESTHER BARNETT MD
[2022-03-22] MEDS: Chlorhexidine 15 ML PO ×2 (10:19→20:50)
[2022-03-22] MEDS: TICAGRELOR 90 MG TABLET PO ×2 (10:19→20:51)
[2022-03-22] MEDS: Aspirin 81 MG TAB.CHEW PO (10:45)
[2022-03-22] MEDS: Ceftriaxone 1 GM/50 ML BAG IV (10:45)
[2022-03-22] MEDS: CHLORHEXIDINE GLUC 2% CLOTH 1 EACH TOWELETTE TOPICAL (10:54)
[2022-03-22 15:11] LABS: Pathologist Review Reviewed
--- NOTE | 2022-03-22 16:46 | EKG12_ITS ---
Test Reason : AM EKG Blood Pressure : / mmHG Vent. Rate : 062 BPM Atrial Rate : 062 BPM P-R Int : 154 ms QRS Dur : 070 ms QT Int : 452 ms P-R-T Axes : 066 049 014 degrees QTc Int : 458 ms Normal sinus rhythm Low voltage QRS Nonspecific ST and T wave abnormality Abnormal ECG When compared with ECG of 22-MAR-2022 16:37, MANUAL COMPARISON REQUIRED, DATA IS UNCONFIRMED Confirmed by LIANA PINEDA, SHIRLEY ([id number]), fan mail editor EVERARDO DAO ([id number]) on 03/25/2022 7:22:22 AM Referred By: LILLIANA Confirmed By:SHIRLEY GAINES MD
[2022-03-22] MEDS: Furosemide 40 MG/4 ML Vial IV (17:07)
[2022-03-22] MEDS: Amiodarone 360 MG in Dextrose 5% Viaflo Bag 192.8 ML 33.3 MG CONT INF (17:28)
[2022-03-22] MEDS: Atorvastatin Calcium 40 MG Tablet PO (20:51)
[2022-03-22] MEDS: Acetaminophen 325 MG Tablet 650 MG PO (20:58)
[2022-03-22] MEDS: HEPARIN/D5w 25,000 UNITS 25,000 UNITS/250 ML IV.SOLN. 10 UNITS CONT INF (22:28)
[2022-03-23] VITALS (53 sets, daily range): BP systolic 75–114; BP diastolic 48–80; PULSE 62–104; RESP 10–18; TEMP 37.3–38.4; O2SAT 91–97
[2022-03-23] MEDS: Propofol 10MG/Ml 1,000 MG/100 ML Bottle 15.6 MG CONT INF (01:49)
[2022-03-23] MEDS: CHLORHEXIDINE GLUC 2% CLOTH 1 EACH TOWELETTE TOPICAL (04:10)
[2022-03-23 04:21] LABS: Absolute Lymphocyte Count 2.39 X10^3/uL (0.83-4.51); Absolute Neutrophil Count 8.2 X10^3/uL (2.0-7.7); Basophil# 0.08 X10^3/uL; Basophil% 0.6 % (0-1); Eosinophil# 0.32 X10^3/uL; Eosinophils% 2.4 % (0-5); Hematocrit 39.8 % (40-54); Hemoglobin 13.2 g/dL (13.0-16.5); Lymphocyte # 2.39 X10^3/ul (0.83-4.51); Lymphocyte % 17.8 % (19-41); Mean Corp Hgb Conc 33.2 g/dL (32-36); Mean Corpuscular Hgb 32.2 pg (27.0-32.0); Mean Corpuscular Volume 97.1 fL (80-94); Mean Platelet Vol. 11.8 fl (6.2-12.0); Monocyte# 2.16 X10^3/uL; NRBC Flagged by Analyzer 0 % (0-5); Neutrophil % 60.9 % (47-70); POSITIVE DIFFERENTIAL YES; Platelet Count 331 K/mm3 (150-450); RBC Distribution Width SD 46.3 fl (35.1-43.9); White Blood Count 13.5 K/mm3 (4.4-11.0)
[2022-03-23 04:24] LABS: Differential Indicated SCAN CRITERIA MET; Macrocytosis 1+
[2022-03-23 04:29] LABS: Partial Thromboplast Time 38.8 Seconds (24.1-36.2)
[2022-03-23 04:51] LABS: ALB/GLOB Ratio 0.6 RATIO (0.9-2.4); AST(SGOT) 47 U/L (15-37); Alanine Aminotransfer ALT/SGPT 41 U/L (16-61); Albumin, Serum 2.3 g/dL (3.2-5.0); Alkaline Phosphatase 124 U/L (45-117); Anion Gap 9 (5-15); BUN 22 mg/dL (7-18); BUN/Creat Ratio 23.3 RATIO (10-20); Calcium,Total 8.3 mg/dL (8.5-10.1); Chloride 101 mmol/L (98-107); Creatinine, Serum 0.95 mg/dL (0.70-1.30); EST Glomerular Filtration Rate 86 mL/min (>60); Est Glom Filt Rate - Afr Amer 104 mL/min (>60); Estimated Creatinine Clearance 85.87 ml/min; Glucose 142 mg/dL (74-106); Potassium 3.7 mmol/L (3.5-5.1); Protein, Total 6.3 g/dL (6.4-8.2); Sodium Level 139 mmol/L (136-145)
--- NOTE | 2022-03-23 06:04 | RAD_ITS ---
STUDY: X-RAY CHEST REASON FOR EXAM: Male, 61 years old. Intra-aortic balloon pump. TECHNIQUE: Single AP portable view of the chest. COMPARISON: March 22, 2022. March 21, 2022. FINDINGS: Endotracheal tube tip is in expected location. There is now a left-sided PICC line with the tip overlying the cavoatrial junction. Enteric tube tip below the left hemidiaphragm off the inferior margin of the study. Intra-aortic balloon pump marker in stable position in its expected location. Perihilar opacities not significantly changed. Mildly elevated right hemidiaphragm. Normal size heart. Normal mediastinum and luis fernando. Normal visualized pulmonary arteries. Normal visualized aortic arch and descending thoracic aorta. Normal visualized thoracic spine. Normal visualized ribs, clavicles, and shoulders. There is no demonstrated abnormality of the visualized soft tissue structures of the upper abdomen. RAD/Chest 1 View (Portable) IMPRESSION: Support lines and tubes in their expected locations. No pneumothorax. Bilateral perihilar opacities unchanged. Electronically Signed: Misha Carrillo MD at 6:45 EST Reading Location ID and State: [id number] / , Service support ,
[2022-03-23] MEDS: Propofol 10MG/Ml 1,000 MG/100 ML Bottle 15.7 MG CONT INF (06:08)
[2022-03-23] MEDS: TITRATION PARAMETER CHANGE 1 EACH IV (06:23)
--- NOTE | 2022-03-23 07:14 | PCM.PN.HOSP ---
Subjective Subjective Patient seen remains on the vent, opens eyes to tactile stimulation. Patient went into A. fib during the night started on amiodarone drip back to sinus rhythm. Objective Data Objective Data Vital Signs: Vital Signs Temp Pulse Resp BP Pulse Ox O2 Del Method O2 Flow Rate 99.1 F 66 15 107/65 96 Mechanical Ventilator 5 03/23/22 04:00 03/23/22 06:00 03/23/22 06:00 03/23/22 06:00 03/23/22 06:00 03/23/22 06:00 03/21/22 12:00 FiO2 30 03/23/22 06:00 Oxygen Flow Rate (L/min) 5 Oxygen Delivery Method Mechanical Ventilator Weight: 87.2 kg Body Mass Index (BMI) 26.8 Intake & Output: Intake and Output for Last 24 Hours 03/21/22 03/22/22 03/23/22 23:59 23:59 23:59 Intake Total 721.04 / 755.84 3075.16 / 3354.56 614.39 / 614.39 Output Total 2100 / 2350 2794 / 2844 310 / 310 Balance -1378.96 / -1594.16 281.16 / 510.56 304.39 / 304.39 Lab / Micro Data Result Diagrams: 03/23/22 04:00 03/23/22 04:00 Labs: Laboratory Results - last 24 hr 03/20/22 06:00: Diff Path Review Reviewed 03/21/22 05:10: Diff Path Review Reviewed 03/21/22 18:10: Activated Clotting Time 161 H 03/22/22 03:40: Diff Path Review Reviewed 03/22/22 10:30: APTT 35.0 03/23/22 04:00: WBC 13.5 H, RBC 4.10 L, Hgb 13.2, Hct 39.8 L, MCV 97.1 H, MCH 32.2 H, MCHC 33.2, RDW Std Deviation 46.3 H, RDW Coeff of Andrew 13.0, Plt Count 331, MPV 11.8, Immature Gran % (Auto) 2.300 H, Neut % (Auto) 60.9, Lymph % (Auto) 17.8 L, [place] % (Auto) 16.0 H, Eos % (Auto) 2.4, Baso % (Auto) 0.6, Absolute Neuts (auto) 8.2 H, Absolute Lymphs (auto) 2.39, Nucleated RBC % 0, Diff Path Review May foll, Macrocytosis 1+ 03/23/22 04:00: Sodium 139, Potassium 3.7, Chloride 101, Carbon Dioxide 29.0, Anion Gap 9, BUN 22 H, Creatinine 0.95, Estim Creat Clear Calc 85.87, Est GFR (MDRD) Af Amer 104, Est GFR (MDRD) Non-Af 86, BUN/Creatinine Ratio 23.3 H, Glucose 142 H, Calcium 8.3 L, Total Bilirubin 0.70, AST 47 H, ALT 41, Alkaline Phosphatase 124 H, Total Protein 6.3 L, Albumin 2.3 L, Globulin 4.0, Albumin/Globulin Ratio 0.6 L 03/23/22 04:00: APTT 38.8 H Micro: Microbiology 03/20/22 07:00 Blood Culture (Wb) - Anticubital Right Blood Culture - Preliminary No growth in 48 hours. 03/20/22 07:10 Blood Culture (Wb) - Anticubital Left Blood Culture - Preliminary No growth in 48 hours. 03/21/22 17:00 Sputum, Induced/Lukens Gram Stain - Final 03/20/22 11:02 Interface Orders Respiratory Panel (PCR) - Final Rhinovirus 03/20/22 09:56 Urine, Clean Catch Legionella Antigen - Final 03/20/22 09:56 Urine, Clean Catch Streptococcus pneumoniae Antigen (M - Final 03/20/22 09:58 Nasal Secretion SARS-CoV-2 Antigen (Rapid) - Final 03/20/22 09:02 Nasal Secretion SARS-CoV-2 Antigen (Rapid) - Final Radiography Diagnostic Testing: Radiology Impression Chest X-Ray 03/22/22 06:00 IMPRESSION: The distal marker of the balloon pump projects over the proximal descending thoracic aorta approximately 3 cm below the superior margin of the aortic arch. Bilateral pulmonary opacities are grossly stable since the prior exam. Electronically Signed: Yamil Meneses MD at 7:06 EST , Echocardiogram 03/22/22 07:10 Interpretation Summary Normal LV size. Mild to moderate segmental systolic dysfunction (see wall motion). The estimated ejection fraction is 45 %. Mid-Lateral : Akinetic. Moderately severe (3+) eccentric mitral valve insufficiency. Compared to previous the above is unchanged. Ordering Physician: Carmelo Lamas Referring Physician: Moshe Sanchez MD Performed By: Augusta Biggs RDCS Chest X-Ray 03/23/22 06:04 IMPRESSION: Support lines and tubes in their expected locations. No pneumothorax. Bilateral perihilar opacities unchanged. Electronically Signed: Misha Carrillo MD at 6:45 EST Reading Location ID and State: [id number] / , Service support , Rhythm Strip Rhythm Strip: Sinus Rhythm Physical Exam Narrative GENERAL: Patient sedated on the vent HEENT: Atraumatic; normocephalic EYES; Anicteric, Normal Conjunctiva NECK; supple, normal thyroid, RESPIRATORY: Diminished to auscultation CARDIOVASCULAR: Regular S1 S2, GI: soft, normoactive bowel sounds, : No Renal angle tenderness; EXTREMITIES: No edema, no clubbing, MUSCULOSKELETAL: no muscle wasting NEURO: Sedated on the vent SKIN: No Rash PSYCH; sedated on the vent Assessment & Plan Assessment/Plan (1) Acute non-ST elevation myocardial infarction (NSTEMI): PLAN: Plan Patient is a 62-year-old gentleman presented with progressive shortness of breath. An assessment of acute hypoxia secondary to flash pulmonary edema as well as acute non-STEMI made admitted to a monitored bed for further management 1. Acute hypoxia - secondary to flash pulmonary edema. Patient was managed with diuretics admitted to a monitored bed placed on supplemental oxygen titrated to keep saturation greater than 90 ? Patient ended up being intubated following his left heart catheterization on 03/21/2022 2. Acute non-STEMI ? Patient EKG demonstrated ST segment depression in V2 to V3 with T wave inversions in V4?V5 V6. His troponin was markedly elevated at 19,000. Treatment initiated per protocol. Consult placed to cardiology plans for patient to undergo left heart catheterization with intervention if needed Patient underwent LHC on 03/21/2022 which demonstrated totally occluded left circumflex artery, patent LAD and and a nondominant right coronary artery. ? His ejection fraction was markedly reduced with severe mitral regurgitation. An attempted angioplasty of the circumflex artery was unsuccessful. He apparently developed some clots in the LAD which was treated he had IABP and was intubated and transferred to the intensive care unit ? 03/23/2022. IABP remains in place Case discussed with Dr. Sarabia 3. Cardiogenic shock IABP in place as well as patient being on Levophed 4. Mechanical ventilation ? Patient was intubated following his LHC. Vent management deferred to pulmonary/critical care medicine 5. Transient A. fib ? Patient started on amiodarone drip. Patient is on azithromycin discontinued due to potential for QT prolongation while on amiodarone 6. Valvular heart disease -with severe mitral valve regurgitation 7. Bilateral pulmonary infiltrate ? Secondary to rhinovirus infection patient treated symptomatically. Patient was empirically started on ceftriaxone and azithromycin for suspected superimposed bacterial pneumonia, given his elevated WBC count. ? 11/20/2021 azithromycin discontinued 8. Elevated transaminitis ? Suspected to be secondary to patient acute non-STEMI monitoring 9. DVT prophylaxis ? Patient is on heparin Charges/Coding Visit Charges Inpatient E&M: 15997 Subs Hosp L3
--- NOTE | 2022-03-23 07:47 | PN.CC_ITS ---
Assessment & Plan Assessment/Plan (1) Acute non-ST elevation myocardial infarction (NSTEMI): (2) Acute hypoxemic respiratory failure: PLAN: Plan RECOMMENDATIONS: 1. Continue to wean FiO2 and PEEP to maintain saturations at or above 90%. 2. Continue Levophed to maintain a mean arterial pressure at or above 65 mmHg. 3. Okay to discontinue antimicrobials, given negative infectious work-up. 4. Intra-aortic balloon pump management, per cardiology. 5. Propofol and fentanyl for sedation. Goal to maintain a RASS of -1 to 1. 6. Continue appropriate GI prophylaxis. IMPRESSIONS: 1. Acute hypoxemic respiratory failure in the setting of acute coronary syndrome The patient's cardiac catheterization revealed a totally occluded left circumf nacho artery, along with moderately severe mitral regurgitation. Attempted angioplasty of the circumflex artery was unsuccessful. Intra-aortic balloon pump was placed. The patient was ultimately intubated in the cardiac catheterization lab due to impending respiratory failure. He is doing well from a respiratory perspective this morning. Plan to continue current supportive measures including invasive mechanical ventilation with a goal to wean FiO2 and PEEP to maintain saturations at or above 90%. Although the patient was initially started on antimicrobials, subsequent culture data was negative. Therefore, antimicrobials can be discontinued. Once the patient's intra-aortic balloon pump was able to be successfully removed, consideration will be given to proceeding with a trial of extubation. 2. Cardiogenic shock/paroxysmal atrial fibrillation Plan to continue Levophed to maintain a mean arterial pressure at or above 65 mmHg. Cardiology is following to assist with medical management. 3. Rhinovirus URI Continue supportive measures as noted above. TIME: 32 minutes of critical care time, independent of procedures, was spent addressing the patient's acute hypoxemic respiratory failure, acute coronary syndrome, cardiogenic shock, rhinovirus URI, review of all data and col laboration with the care team. Subjective Subjective The patient was seen and examined at the bedside this morning. Events from the last 24 hours have been reviewed. The patient is currently afebrile and maintaining appropriate oxygen saturations on assist control mode of mechanical ventilation with an FiO2 requirement of 30%. The patient did for period of time developed atrial fibrillation last night, which was treated with amiodarone. He has subsequently converted back to normal sinus rhythm. The patient is hemo dynamically stable at the present time on Levophed at 8 mcg/min. The patient is currently documented to be overall net +1.2 L for the hospitalization. Intra- aortic balloon pump is currently augmenting at 1:1. Objective Data Objective Data The patient's most recent lab work, culture data and imaging studies have all been personally reviewed. Surface echocardiogram dated March 21 demonstrated an ejection fraction of 45% with moderately severe mitral valve insufficiency and a pulmonary artery systolic pressure of 60 mmHg. Respiratory viral panel was positive for rhinovirus. Vital Signs: Vital Signs Temp Pulse Resp BP Pulse Ox O2 Del Method O2 Flow Rate 99.1 F 63 14 106/64 97 Mechanical Ventilator 5 03/23/22 04:00 03/23/22 07:00 03/23/22 07:00 03/23/22 07:00 03/23/22 07:00 03/23/22 07:00 03/21/22 12:00 FiO2 30 03/23/22 07:00 Oxygen Flow Rate (L/min) 5 Oxygen Delivery Method Mechanical Ventilator Weight: 192 lb 3.889 oz Body Mass Index (BMI) 26.8 Intake & Output: Intake and Output for Last 24 Hours 03/21/22 03/22/22 03/23/22 23:59 23:59 23:59 Intake Total 721.04 / 755.84 3075.16 / 3354.56 650.54 / 650.54 Output Total 2100 / 2350 2794 / 2844 360 / 360 Balance -1378.96 / -1594.16 281.16 / 510.56 290.54 / 290.54 Lab / Micro Data Attestation: I reviewed the patient's lab results. Result Diagrams: 03/23/22 04:00 03/23/22 04:00 Labs: Laboratory Results - last 24 hr 03/20/22 06:00: Diff Path Review Reviewed 03/21/22 05:10: Diff Path Review Reviewed 03/21/22 18:10: Activated Clotting Time 161 H 03/22/22 03:40: Diff Path Review Reviewed 03/22/22 10:30: APTT 35.0 03/23/22 04:00: WBC 13.5 H, RBC 4.10 L, Hgb 13.2, Hct 39.8 L, MCV 97.1 H, MCH 32.2 H, MCHC 33.2, RDW Std Deviation 46.3 H, RDW Coeff of Andrew 13.0, Plt Count 331, MPV 11.8, Immature Gran % (Auto) 2.300 H, Neut % (Auto) 60.9, Lymph % (Auto) 17.8 L, [place] % (Auto) 16.0 H, Eos % (Auto) 2.4, Baso % (Auto) 0.6, Absolute Neuts (auto) 8.2 H, Absolute Lymphs (auto) 2.39, Nucleated RBC % 0, Diff Path Review May foll, Macrocytosis 1+ 03/23/22 04:00: Sodium 139, Potassium 3.7, Chloride 101, Carbon Dioxide 29.0, Anion Gap 9, BUN 22 H, Creatinine 0.95, Estim Creat Clear Calc 85.87, Est GFR (MDRD) Af Amer 104, Est GFR (MDRD) Non-Af 86, BUN/Creatinine Ratio 23.3 H, Glucose 142 H, Calcium 8.3 L, Total Bilirubin 0.70, AST 47 H, ALT 41, Alkaline Phosphatase 124 H, Total Protein 6.3 L, Albumin 2.3 L, Globulin 4.0, Albumin/Globulin Ratio 0.6 L 03/23/22 04:00: APTT 38.8 H Micro: Microbiology 03/20/22 07:00 Blood Culture (Wb) - Anticubital Right Blood Culture - Preliminary No growth in 48 hours. 03/20/22 07:10 Blood Culture (Wb) - Anticubital Left Blood Culture - Preliminary No growth in 48 hours. 03/21/22 17:00 Sputum, Induced/Lukens Gram Stain - Final 03/20/22 11:02 Interface Orders Respiratory Panel (PCR) - Final Rhinovirus 03/20/22 09:56 Urine, Clean Catch Legionella Antigen - Final 03/20/22 09:56 Urine, Clean Catch Streptococcus pneumoniae Antigen (M - Final 03/20/22 09:58 Nasal Secretion SARS-CoV-2 Antigen (Rapid) - Final 03/20/22 09:02 Nasal Secretion SARS-CoV-2 Antigen (Rapid) - Final ABG Data ABG results: ABG 03/21/22 17:11 Specimen Type ART Sample Site Central Line pH 7.43 Bicarbonate Actual 26.2 H Total CO2 27 Base Excess 2 O2 Saturation 99 O2 % 85 ABG pCO2 39.5 ABG pO2 113 H Cameron Test N/A Respiration Rate 14 O2 Delivery Device Adult Vent Vent Mode AC Tidal Volume 500 POC PEEP 5 Radiography Diagnostic Testing: Radiology Impression Echocardiogram 03/22/22 07:10 Interpretation Summary Normal LV size. Mild to moderate segmental systolic dysfunction (see wall motion). The estimated ejection fraction is 45 %. Mid-Lateral : Akinetic. Moderately severe (3+) eccentric mitral valve insufficiency. Compared to previous the above is unchanged. Ordering Physician: Carmelo Lamas Referring Physician: Moshe Sanchez MD Performed By: Augusta Biggs, [facility] Chest X-Ray 03/23/22 06:04 IMPRESSION: Support lines and tubes in their expected locations. No pneumothorax. Bilateral perihilar opacities unchanged. Electronically Signed: Misha Carrillo MD at 6:45 EST Reading Location ID and State: [id number] / , Service support , Rhythm Strip Rhythm Strip: Sinus Rhythm Physical Exam Const Constitutional Narrative: Intubated, sedated and mechanically ventilated. No ventilator dyssynchrony noted. HEENT normocephalic and head/scalp atraumatic Mouth: endotracheal tube in place and OG tube in place Eyes PERRL and EOMs intact bilaterally Neck supple General: trachea midline Chest inspection of chest normal Resp Auscultation: Negative for rales, rhonchi or wheezes Cardio regular rate and regular rhythm Cardio Narrative: Intra-aortic balloon pump in place GI normal to inspection, nondistended, normoactive bowel sounds Extremity no clubbing, cyanosis or edema Skin no rashes or lesions noted Neuro Sensorium / Orientation: sedated on vent Charges/Coding Procedures Hospitalists Procedures: [id number] Critial Care 1st Hr
[2022-03-23] MEDS: Ipratropium/Albuterol Sulfate 3 ML AMPUL.NEB INHALATION ×4 (07:57→19:48)
[2022-03-23] MEDS: Chlorhexidine 15 ML PO ×2 (09:29→21:19)
[2022-03-23] MEDS: Senna/Docusate Sodium 1 Tablet 2 TABLET GT ×2 (10:10→21:19)
[2022-03-23] MEDS: Ceftriaxone 1 GM/50 ML BAG IV (10:10)
[2022-03-23] MEDS: Propofol 10MG/Ml 1,000 MG/100 ML Bottle 18.3 MG CONT INF ×3 (10:33→20:18)
--- NOTE | 2022-03-23 10:33 | CRPHASE1_ITS ---
Patient Communication PHII Cardiac Rehab Discussed with Patient:: No - Pt is on a vent. Rehab booklet left in room. Guide to Cardiac Rehab Given to Patient:: Yes Cardiac Rehab Facility Choice List Given to Patient:: Yes Choice Program [facility] CR PHII:: Communication Given to CR, Refer to [facility] Refer Phase II Cardiac Rehab:: Yes Sessions:: 36 sessions - 3 days/wk, 12 weeks Cardiac Rehabilitation Info Cardiac Rehabilitation Program Information: Cardiac Rehabilitation is important for patients like you who are recovering from a heart problem. Cardiac rehabilitation programs are recognized as integral to the continued care of the patient with coronary heart disease. The cardiac rehabilitation program is designed to optimize a patient's physical, psychological, and social functioning. Health family day carer work in cardiac rehabilitation programs and assist you with getting the treatments you need to get stronger and healthier - like exercise, healthy eating habits, and medications. Cardiac rehabilitation has been show to help people with heart problems live longer and have better life enjoyment than people who do not go to cardiac rehabilitation. Please contact the Cardiac Rehabilitation Program at [facility] at in two weeks if you have not heard from them.
--- NOTE | 2022-03-23 10:34 | CRPH1.INSTRU ---
General Education CAD and cardiac anatomy and function:: Needs reinforcement Explanation of diagnoses and procedures:: Needs reinforcement Sign/Symptoms of LA:: Needs reinforcement Antiplatelet therapy: Needs reinforcement Proper use of NTG-SL: Needs reinforcement Emergency procedures and activation of EMS: Needs reinforcement Compliance of all prescribed medications: Needs reinforcement - Pt is on vent. CR book left with pt.
[2022-03-23 11:18] LABS: Pathologist Review Reviewed
[2022-03-23] MEDS: Aspirin 81 MG TAB.CHEW PO (11:23)
[2022-03-23] MEDS: TICAGRELOR 90 MG TABLET PO ×2 (11:24→21:19)
[2022-03-23] MEDS: Amiodarone 360 MG in Dextrose 5% Viaflo Bag 192.8 ML 16.7 MG CONT INF ×2 (12:12)
[2022-03-23] MEDS: 0.9% Saline Lock 10 ML Syringe IV (21:19)
[2022-03-23] MEDS: Atorvastatin Calcium 40 MG Tablet PO (21:19)
[2022-03-23] MEDS: Acetaminophen 325 MG Tablet 650 MG PO (21:57)
[2022-03-24] VITALS (53 sets, daily range): BP systolic 82–114; BP diastolic 56–85; PULSE 70–122; RESP 14–32; TEMP 37.7–38.1; O2SAT 89–100
[2022-03-24] MEDS: Amiodarone 360 MG in Dextrose 5% Viaflo Bag 192.8 ML 16.7 MG CONT INF (00:11)
[2022-03-24] MEDS: Propofol 10MG/Ml 1,000 MG/100 ML Bottle 18.3 MG CONT INF (01:46)
[2022-03-24 04:15] LABS: Absolute Lymphocyte Count 1.69 X10^3/uL (0.83-4.51); Basophil# 0.06 X10^3/uL; Basophil% 0.5 % (0-1); Eosinophil# 0.42 X10^3/uL; Eosinophils% 3.8 % (0-5); Hematocrit 36.9 % (40-54); Hemoglobin 12.2 g/dL (13.0-16.5); Lymphocyte # 1.69 X10^3/ul (0.83-4.51); Lymphocyte % 15.2 % (19-41); Mean Corp Hgb Conc 33.1 g/dL (32-36); Mean Corpuscular Hgb 32.2 pg (27.0-32.0); Mean Corpuscular Volume 97.4 fL (80-94); Mean Platelet Vol. 11.5 fl (6.2-12.0); Monocyte# 1.67 X10^3/uL; NRBC Flagged by Analyzer 0 % (0-5); Neutrophil # 6.99 X10^3/uL (2.7-7.7); Neutrophil % 62.6 % (47-70); POSITIVE DIFFERENTIAL YES; Platelet Count 280 K/mm3 (150-450); RBC Distribution Width SD 46.6 fl (35.1-43.9); Red Blood Count 3.79 M/mm3 (4.6-6.2); White Blood Count 11.2 K/mm3 (4.4-11.0)
[2022-03-24 04:18] LABS: Differential Indicated SCAN CRITERIA MET
[2022-03-24 04:25] LABS: Macrocytosis 1+
[2022-03-24] MEDS: CHLORHEXIDINE GLUC 2% CLOTH 1 EACH TOWELETTE TOPICAL (04:30)
[2022-03-24 04:37] LABS: AST(SGOT) 27 U/L (15-37); Alanine Aminotransfer ALT/SGPT 30 U/L (16-61); Albumin, Serum 2.1 g/dL (3.2-5.0); Alkaline Phosphatase 113 U/L (45-117); Anion Gap 8 (5-15); BUN 16 mg/dL (7-18); Bilirubin, Direct 0.33 mg/dL (0.00-0.30); Calcium,Total 7.6 mg/dL (8.5-10.1); Chloride 99 mmol/L (98-107); Creatinine, Serum 0.84 mg/dL (0.70-1.30); EST Glomerular Filtration Rate 98 mL/min (>60); Est Glom Filt Rate - Afr Amer 119 mL/min (>60); Estimated Creatinine Clearance 97.11 ml/min; Globulin 3.4 g/dL (2.2-4.2); Glucose 225 mg/dL (74-106); Magnesium 2.5 mg/dL (1.6-2.6); Phosphorus 2.8 mg/dL (2.5-4.9); Potassium 3.2 mmol/L (3.5-5.1); Protein, Total 5.5 g/dL (6.4-8.2); Sodium Level 136 mmol/L (136-145)
--- NOTE | 2022-03-24 06:17 | PN.CC_ITS ---
Assessment & Plan Assessment/Plan (1) Acute non-ST elevation myocardial infarction (NSTEMI): (2) Acute hypoxemic respiratory failure: PLAN: Plan RECOMMENDATIONS: 1. Proceed with a trial of extubation this morning. 2. Once extubated, wean supplemental oxygen to maintain saturations at or above 90%. 3. Obtain follow-up chest x-ray. 4. Continue Levophed to maintain a mean arterial pressure at or above 65 mmHg. 5. Encourage incentive spirometer use and mobilize patient as tolerated. 6. Additional medical management per cardiology. IMPRESSIONS: 1. Acute hypoxemic respiratory failure in the setting of acute coronary syndrome The patient's cardiac catheterization revealed a totally occluded left circumflex artery, along with moderately severe mitral regurgitation. Attempted angioplasty of the circumflex artery was unsuccessful. The patient was ultimately intubated in the cardiac catheterization lab due to impending respiratory failure. The patient has improved from a respiratory perspective, with plans to proceed with extubation this morning. Once extubated, supplemental oxygen can be weaned for saturations greater than 90%. Recommend speech therapy evaluation prior to advancing diet. Encourage incentive spirometer use and mobilize patient as tolerated. 2. Cardiogenic shock/paroxysmal atrial fibrillation Plan to continue Levophed to maintain a mean arterial pressure at or above 65 mmHg. Cardiology is following to assist with medical management. 3. Rhinovirus URI Continue supportive measures as noted above. TIME: 33 minutes of critical care time, independent of procedures, was spent addressing the patient's acute hypoxemic respiratory failure, acute coronary syndrome, cardiogenic shock, rhinovirus URI, review of all data and collaboration with the care team. Subjective Subjective The patient was seen and examined at the bedside this morning. Events from the last 24 hours have been reviewed. The patient currently has a low-grade fever and remains on Levophed at 8 mcg/min. The patient did well this morning on his spontaneous breathing trial. He is currently alert and appropriately interactive. Intra-aortic balloon pump was removed yesterday. Objective Data Objective Data The patient's most recent lab work, culture data and imaging studies have all been personally reviewed. Surface echocardiogram dated March 21 demonstrated an ejection fraction of 45% with moderately severe mitral valve insufficiency and a pulmonary artery systolic pressure of 60 mmHg. Respiratory viral panel was positive for rhinovirus. Vital Signs: Vital Signs Temp Pulse Resp BP Pulse Ox O2 Del Method O2 Flow Rate 100.4 F H 82 19 H 96/73 93 Mechanical Ventilator 5 03/24/22 05:00 03/24/22 05:03 03/24/22 05:03 03/24/22 05:00 03/24/22 05:03 03/24/22 05:00 03/21/22 12:00 FiO2 25 03/24/22 05:00 Oxygen Flow Rate (L/min) 5 Oxygen Delivery Method Mechanical Ventilator Weight: 195 lb 15.855 oz Body Mass Index (BMI) 26.8 Intake & Output: Intake and Output for Last 24 Hours 03/22/22 03/23/22 03/24/22 23:59 23:59 23:59 Intake Total 3075.16 / 3354.56 2483.23 / 2606.53 421.85 / 421.85 Output Total 2794 / 2844 745 / 1095 350 / 350 Balance 281.16 / 510.56 1738.23 / 1511.53 71.85 / 71.85 Lab / Micro Data Attestation: I reviewed the patient's lab results. Result Diagrams: 03/24/22 04:05 03/24/22 04:05 Labs: Laboratory Results - last 24 hr 03/23/22 04:00: Diff Path Review Reviewed 03/24/22 04:05: WBC 11.2 H, RBC 3.79 L, Hgb 12.2 L, Hct 36.9 L, MCV 97.4 H, MCH 32.2 H, MCHC 33.1, RDW Std Deviation 46.6 H, RDW Coeff of Andrew 13.0, Plt Count 280, MPV 11.5, Immature Gran % (Auto) 2.900 H, Neut % (Auto) 62.6, Lymph % (Auto) 15.2 L, [place] % (Auto) 15.0 H, Eos % (Auto) 3.8, Baso % (Auto) 0.5, Abso lute Neuts (auto) 7.0, Absolute Lymphs (auto) 1.69, Nucleated RBC % 0, Diff Path Review May foll, Macrocytosis 1+ 03/24/22 04:05: Sodium 136, Potassium 3.2 L, Chloride 99, Carbon Dioxide 29.0, Anion Gap 8, BUN 16, Creatinine 0.84, Estim Creat Clear Calc 97.11, Est GFR (MDRD) Af Amer 119, Est GFR (MDRD) Non-Af 98, BUN/Creatinine Ratio 19.0, Glucose 225 H, Calcium 7.6 L, Phosphorus 2.8, Magnesium 2.5, Total Bilirubin 0.70, Direct Bilirubin 0.33 H, AST 27, ALT 30, Alkaline Phosphatase 113, Total Protein 5.5 L, Albumin 2.1 L, Globulin 3.4 Micro: Microbiology 03/21/22 17:00 Sputum, Induced/Lukens Gram Stain - Final 03/21/22 17:00 Sputum, Induced/Lukens Respiratory Culture - Preliminary Alpha Hemolytic Streptococcus 03/20/22 07:00 Blood Culture (Wb) - Anticubital Right Blood Culture - Preliminary No growth in 48 hours. 03/20/22 07:10 Blood Culture (Wb) - Anticubital Left Blood Culture - Prelimi nary No growth in 48 hours. 03/20/22 11:02 Interface Orders Respiratory Panel (PCR) - Final Rhinovirus 03/20/22 09:56 Urine, Clean Catch Legionella Antigen - Final 03/20/22 09:56 Urine, Clean Catch Streptococcus pneumoniae Antigen (M - Final 03/20/22 09:58 Nasal Secretion SARS-CoV-2 Antigen (Rapid) - Final 03/20/22 09:02 Nasal Secretion SARS-CoV-2 Antigen (Rapid) - Final ABG Data ABG results: ABG 03/21/22 17:11 Specimen Type ART Sample Site Central Line pH 7.43 Bicarbonate Actual 26.2 H Total CO2 27 Base Excess 2 O2 Saturation 99 O2 % 85 ABG pCO2 39.5 ABG pO2 113 H Cameron Test N/A Respiration Rate 14 O2 Delivery Device Adult Vent Vent Mode AC Tidal Volume 500 POC PEEP 5 Radiography Diagnostic Testing: Radiology Impression Chest X-Ray 03/23/22 06:04 IMPRESSION: Support lines and tubes in their expected locations. No pneumothorax. Bilateral perihilar opacities unchanged. Electronically Signed: Misha Carrillo MD at 6:45 EST Reading Location ID and State: [id number] / , Service support , Rhythm Strip Rhythm Strip: Sinus Rhythm Physical Exam Const Constitutional Narrative: Intubated, sedated and mechanically ventilated. No ventilator dyssynchrony noted. HEENT normocephalic and head/scalp atraumatic Mouth: endotracheal tube in place and OG tube in place Eyes PERRL and EOMs intact bilaterally Neck supple General: trachea midline Chest inspection of chest normal Resp Auscultation: rales; Negative for rhonchi or wheezes Cardio regular rate and regular rhythm GI normal to inspection, nondistended, normoactive bowel sounds Extremity no clubbing, cyanosis or edema Skin no rashes or lesions noted Neuro Neuro Narrative: Alert and appropriately interactive. Able to follow simple commands. Charges/Coding Procedures Hospitalists Procedures: [id number] Critial Care 1st Hr
[2022-03-24] MEDS: Ipratropium/Albuterol Sulfate 3 ML AMPUL.NEB INHALATION ×4 (06:40→19:02)
--- NOTE | 2022-03-24 07:15 | RAD_ITS ---
STUDY: X-RAY CHEST REASON FOR EXAM: Male, 61 years old. S/p extubation TECHNIQUE: Single AP portable view of the chest. COMPARISON: Comparison is made with prior study dated 03/23/2022. FINDINGS: The endotracheal tube and orogastric tube have been removed. A left-sided PICC line catheter seen with the tip at the junction of the superior vena cava and right atrium. The intra-aortic balloon pump has been removed. Stable elevation of the right hemidiaphragm. Persistent bilateral perihilar infiltrates although there has been a mild degree of improvement as compared to prior study. The right pleural effusion has cleared. Normal size heart. Normal mediastinum and luis fernando. Normal visualized pulmonary arteries. Normal visualized aortic arch and descending thoracic aorta. Normal visualized thoracic spine. Normal visualized ribs, clavicles, and shoulders. There is no demonstrated abnormality of the visualized soft tissue structures of the upper abdomen. RAD/Chest 1 View (Portable) IMPRESSION: The endotracheal tube and orogastric tube have been removed. Persistent bilateral perihilar infiltrates although there is improved aeration. The right pleural effusion as clear. Electronically Signed: Jake Menezes MD at 12:28 EST ,
--- NOTE | 2022-03-24 07:22 | PCM.PN.HOSP ---
Subjective Subjective Patient seen has just been extubated from the vent. Currently requiring 15 L of oxygen to maintain adequate saturation. Diagnostic data reviewed significant for potassium of 3.2 Objective Data Objective Data Vital Signs: Vital Signs Temp Pulse Resp BP Pulse Ox O2 Del Method O2 Flow Rate 100.6 F H 83 16 102/72 90 Mechanical Ventilator 5 03/24/22 06:00 03/24/22 06:00 03/24/22 06:00 03/24/22 06:00 03/24/22 06:00 03/24/22 06:00 03/21/22 12:00 FiO2 30 03/24/22 06:00 Oxygen Flow Rate (L/min) 5 Oxygen Delivery Method Mechanical Ventilator Weight: 88.9 kg Body Mass Index (BMI) 26.8 Intake & Output: Intake and Output for Last 24 Hours 03/22/22 03/23/22 03/24/22 23:59 23:59 23:59 Intake Total 3075.16 / 3354.56 2483.23 / 2606.53 623.99 / 623.99 Output Total 2794 / 2844 745 / 1095 750 / 750 Balance 281.16 / 510.56 1738.23 / 1511.53 -126.01 / -126.01 Lab / Micro Data Result Diagrams: 03/24/22 04:05 03/24/22 04:05 Labs: Laboratory Results - last 24 hr 03/23/22 04:00: Diff Path Review Reviewed 03/24/22 04:05: WBC 11.2 H, RBC 3.79 L, Hgb 12.2 L, Hct 36.9 L, MCV 97.4 H, MCH 32.2 H, MCHC 33.1, RDW Std Deviation 46.6 H, RDW Coeff of Andrew 13.0, Plt Count 280, MPV 11.5, Immature Gran % (Auto) 2.900 H, Neut % (Auto) 62.6, Lymph % (Auto) 15.2 L, [place] % (Auto) 15.0 H, Eos % (Auto) 3.8, Baso % (Auto) 0.5, Absolute Neuts (auto) 7.0, Absolute Lymphs (auto) 1.69, Nucleated RBC % 0, Diff Path Review May foll, Macrocytosis 1+ 03/24/22 04:05: Sodium 136, Potassium 3.2 L, Chloride 99, Carbon Dioxide 29.0, Anion Gap 8, BUN 16, Creatinine 0.84, Estim Creat Clear Calc 97.11, Est GFR (MDRD) Af Amer 119, Est GFR (MDRD) Non-Af 98, BUN/Creatinine Ratio 19.0, Glucose 225 H, Calcium 7.6 L, Phosphorus 2.8, Magnesium 2.5, Total Bilirubin 0.70, Direct Bilirubin 0.33 H, AST 27, ALT 30, Alkaline Phosphatase 113, Total Protein 5.5 L, Albumin 2.1 L, Globulin 3.4 Micro: Microbiology 03/21/22 17:00 Sputum, Induced/Lukens Gram Stain - Final 03/21/22 17:00 Sputum, Induced/Lukens Respiratory Culture - Preliminary Alpha Hemolytic Streptococcus 03/20/22 07:00 Blood Culture (Wb) - Anticubital Right Blood Culture - Preliminary No growth in 48 hours. 03/20/22 07:10 Blood Culture (Wb) - Anticubital Left Blood Culture - Preliminary No growth in 48 hours. 03/20/22 11:02 Interface Orders Respiratory Panel (PCR) - Final Rhinovirus 03/20/22 09:56 Urine, Clean Catch Legionella Antigen - Final 03/20/22 09:56 Urine, Clean Catch Streptococcus pneumoniae Antigen (M - Final 03/20/22 09:58 Nasal Secretion SARS-CoV-2 Antigen (Rapid) - Final 03/20/22 09:02 Nasal Secretion SARS-CoV-2 Antigen (Rapid) - Final Rhythm Strip Rhythm Strip: Sinus Rhythm Physical Exam Narrative GENERAL: Of the vent HEENT: Atraumatic; normocephalic EYES; Anicteric, Normal Conjunctiva NECK; supple, normal thyroid, RESPIRATORY: Diminished to auscultation CARDIOVASCULAR: Regular S1 S2, GI: soft, normoactive bowel sounds, : No Renal angle tenderness; EXTREMITIES: No edema, no clubbing, MUSCULOSKELETAL: no muscle wasting NEURO: Grossly intact no lateralizing signs SKIN: No Rash PSYCH; flat affect Assessment & Plan Assessment/Plan (1) Acute non-ST elevation myocardial infarction (NSTEMI): PLAN: Plan Patient is a 62-year-old gentleman presented with progressive shortness of breath. An assessment of acute hypoxia secondary to flash pulmonary edema as well as acute non-STEMI made admitted to a monitored bed for further management 1. Acute hypoxia - secondary to flash pulmonary edema. Patient was managed with diuretics admitted to a monitored bed placed on supplemental oxygen titrated to keep saturation greater than 90 ? Patient ended up being intubated following his left heart catheterization on 03/21/2022 ? 03/24/2022 patient was weaned off the vent. Currently 15 flow via nasal cannula to maintain adequate oxygen saturation 2. Acute non-STEMI ? Patient EKG demonstrated ST segment depression in V2 to V3 with T wave inversions in V4?V5 V6. His troponin was markedly elevated at 19,000. Treatment initiated per protocol. Consult placed to cardiology plans for patient to undergo left heart catheterization with intervention if needed Patient underwent LHC on 03/21/2022 which demonstrated totally occluded left circumflex artery, patent LAD and and a nondominant right coronary artery. ? His ejection fraction was markedly reduced with severe mitral regurgitation. An attempted angioplasty of the circumflex artery was unsuccessful. He apparently developed some clots in the LAD which was treated he had IABP and was intubated and transferred to the intensive care unit ? 03/23/2022. IABP remains in place Case discussed with Dr. Lamas 03/24/2022 IABP discontinued 3. Cardiogenic shock IABP in place as well as patient being on Levophed -03/24/2022 IABP discontinued 4. Mechanical ventilation ? Patient was intubated following his LHC. Vent management deferred to pulmonary/critical care medicine ? 03/24/2022 patient has been weaned off the vent 5. Transient A. fib ? Patient started on amiodarone drip. Patient is on azithromycin discontinued due to potential for QT prolongation while on amiodarone 6. Hypokalemia ? Corrected per protocol repeat labs ordered for a.m. 7. Valvular heart disease -with severe mitral valve regurgitation 8. Bilateral pulmonary infiltrate ? Secondary to rhinovirus infection patient treated symptomatically. Patient was empirically started on ceftriaxone and azithromycin for suspected superimposed bacterial pneumonia, given his elevated WBC count. ? 03/23/2022 azithromycin discontinued -03/24/2022 remains on antibiotics and high flow oxygen 9. Elevated transaminitis ? Suspected to be secondary to patient acute non-STEMI monitoring ? 03/24/2022 patient acute transaminitis resolved 10. DVT prophylaxis ? Patient is on heparin Charges/Coding Visit Charges Inpatient E&M: 70714 [facility] L3
[2022-03-24] MEDS: 0.9% Saline Lock 10 ML Syringe IV ×4 (09:13→22:39)
[2022-03-24] MEDS: Ondansetron 4 MG/2 ML Vial IV (09:13)
[2022-03-24] MEDS: Potassium Chloride 10mEq/100mL 10 MEQ/100 ML IV.SOLN. 100 MEQ IV BOLUS ×4 (09:18→12:47)
[2022-03-24 10:36] LABS: BNP,B-Type NATRIURETIC PEPTIDE 530.9 pg/mL (0-100)
--- NOTE | 2022-03-24 11:17 | PCM.PN.CARD ---
Subjective Subjective Extubated this morning. Sitting up in bed. Comfortable. Denies any complaints. Objective Data Vital Signs: Vital Signs Temp Pulse Resp BP Pulse Ox O2 Del Method O2 Flow Rate 100.4 F H 96 26 H 156/96 H 92 Airvo 50 03/24/22 10:00 03/24/22 11:08 03/24/22 11:08 03/24/22 11:00 03/24/22 11:00 03/24/22 11:00 03/24/22 11:00 FiO2 63 03/24/22 11:00 Oxygen Flow Rate (L/min) 50 Oxygen Delivery Method Airvo Weight: 195 lb 15.855 oz Body Mass Index (BMI) 26.8 Intake & Output: Intake and Output for Last 24 Hours 03/22/22 03/23/22 03/24/22 23:59 23:59 23:59 Intake Total 3075.16 / 3354.56 2483.23 / 2606.53 853.49 / 853.49 Output Total 2794 / 2844 745 / 1095 925 / 925 Balance 281.16 / 510.56 1738.23 / 1511.53 -71.51 / -71.51 Lab / Micro Data Result Diagrams: 03/24/22 04:05 03/24/22 04:05 Labs: Laboratory Results - last 24 hr 03/23/22 04:00: Diff Path Review Reviewed 03/24/22 04:05: WBC 11.2 H, RBC 3.79 L, Hgb 12.2 L, Hct 36.9 L, MCV 97.4 H, MCH 32.2 H, MCHC 33.1, RDW Std Deviation 46.6 H, RDW Coeff of Andrew 13.0, Plt Count 280, MPV 11.5, Immature Gran % (Auto) 2.900 H, Neut % (Auto) 62.6, Lymph % (Auto) 15.2 L, [place] % (Auto) 15.0 H, Eos % (Auto) 3.8, Baso % (Auto) 0.5, Absolute Neuts (auto) 7.0, Absolute Lymphs (auto) 1.69, Nucleated RBC % 0, Diff Path Review May foll, Macrocytosis 1+ 03/24/22 04:05: Sodium 136, Potassium 3.2 L, Chloride 99, Carbon Dioxide 29.0, Anion Gap 8, BUN 16, Creatinine 0.84, Estim Creat Clear Calc 97.11, Est GFR (MDRD) Af Amer 119, Est GFR (MDRD) Non-Af 98, BUN/Creatinine Ratio 19.0, Glucose 225 H, Calcium 7.6 L, Phosphorus 2.8, Magnesium 2.5, Total Bilirubin 0.70, Direct Bilirubin 0.33 H, AST 27, ALT 30, Alkaline Phosphatase 113, Total Protein 5.5 L, Albumin 2.1 L, Globulin 3.4 03/24/22 04:05: B-Natriuretic Peptide 530.9 H Micro: Microbiology 03/21/22 17:00 Sputum, Induced/Lukens Gram Stain - Final 03/21/22 17:00 Sputum, Induced/Lukens Respiratory Culture - Preliminary Alpha Hemolytic Streptococcus Rhythm Strip Rhythm Strip: Sinus Rhythm Cardiology Labs/Tests 03/24/22 04:05: WBC 11.2 H, RBC 3.79 L, Hgb 12.2 L, Hct 36.9 L, MCV 97.4 H, MCH 32.2 H, MCHC 33.1, Plt Count 280, MPV 11.5, Immature Gran % (Auto) 2.900 H, Neut % (Auto) 62.6, Lymph % (Auto) 15.2 L, [place] % (Auto) 15.0 H, Eos % (Auto) 3.8, Baso % (Auto) 0.5, Absolute Neuts (auto) 7.0, Nucleated RBC % 0 03/24/22 04:05: Sodium 136, Potassium 3.2 L, Chloride 99, Carbon Dioxide 29.0, Anion Gap 8, BUN 16, Creatinine 0.84, Est GFR (MDRD) Af Amer 119, Est GFR (MDRD) Non-Af 98, BUN/Creatinine Ratio 19.0, Glucose 225 H, Calcium 7.6 L, Phosphorus 2.8, Magnesium 2.5, Total Bilirubin 0.70, Direct Bilirubin 0.33 H 03/24/22 04:05: B-Natriuretic Peptide 530.9 H Rhythm: EKG: ECHO: Stress Test: Cardiac Cath: PCI: CT Surgery: Holter monitor: EPS: PPM: CXR: Chest CT Scan: Physical Exam Narrative Unlabored respirations. Appears comfortable. Heart sounds 1 and 2 noted. 3/6 systolic murmur at apex. Chest examination shows decreased breath sounds at bases. Alert oriented x3. No ankle edema. Assessment & Plan Assessment/Plan (1) Acute non-ST elevation myocardial infarction (NSTEMI): PLAN: I believe the patient's event was subacute. Completely occluded proximal left circumflex. Unable to wire. Obtuse marginal and left PDA noted to be filling via collaterals. Continue medical management. (2) CHF (congestive heart failure): PLAN: Start on regular dose of Lasix. Also had Aldactone. We will add beta-blockers and LAKESHA inhibitors as tolerated. (3) Mitral regurgitation: PLAN: Likely ischemic. See #2 above. (4) Acute hypoxemic respiratory failure: PLAN: Successfully weaned off the ventilator. Follow as per pulmonology. Running fever this morning. Manage as per critical care/medicine.
[2022-03-24] MEDS: Senna/Docusate Sodium 1 Tablet 2 TABLET GT ×2 (11:40→22:41)
[2022-03-24] MEDS: TICAGRELOR 90 MG TABLET PO ×2 (11:40→22:41)
[2022-03-24] MEDS: Aspirin 81 MG TAB.CHEW PO (11:40)
--- NOTE | 2022-03-24 12:12 | CHAPLAIN ---
Type of Pastoral Visit _x__ Initial Visit ___ Follow-up Visit ___ On-call Visit ___ General Patient Visit ___ Spiritual Assessment ___ Family Conference ___ Bereavement ___ Rapid Response ___ Code Blue ___ Other (describe below) Pastoral Care Referral From ___ Patient _x__ Family ___ Nurse ___ Physician ___ Rn Intensive Care Unit ___ Multicraft Operator ___ Other (describe below) Sacrament/Intervention _x__ Active listening ___ Anointing ___ Mormonism ___ Bereavement ___ Communion ___ Kacie exploration ___ ___ Life review _x__ Prayer ___ Reconciliation ___ Sacrament of Sick _x__ Supportive presence ___ Wedding ___ Other (describe below) Pastoral Comments patient was extubated earlier this morning; pt is alert and does answer a few questions appropriately verbally and with facial or hand motions; spouse is also in the room and gives more details since patient has been sedated for several days; pt and spouse welcome the visit of concern and offer of support; pt does not have specific requests; spouse states that more decisions will be made in the future about further interventions; pt welcomes a prayer; offer of ongoing support is given
[2022-03-24 12:25] LABS: Procalcitonin 0.13 ng/mL (0.00-0.09)
[2022-03-24] MEDS: Amiodarone 200 MG Tablet PO (13:51)
[2022-03-24] MEDS: Furosemide 40 MG Tablet PO ×2 (13:51→22:40)
[2022-03-24 14:21] LABS: Pathologist Review Reviewed
[2022-03-24 14:50] LABS: M R Staph aureus DNA By PCR Negative (Negative)
[2022-03-24 14:51] LABS: Probe Check PASS; Specimen Processing Control PASS
--- NOTE | 2022-03-24 17:41 | CASEMGMT ---
TRINIDAD BROWN NOTE: Pt on Brilinta. TRINIDAD BROWN to room. Brilinta savings card given to and pt and instructed on use. They were made aware, if refills are not affordable, to discuss possible alternative options w/loop tender. They voice understanding. Matt JOSEN TRINIDAD CM
[2022-03-24] MEDS: Atorvastatin Calcium 40 MG Tablet PO (22:41)
[2022-03-25] VITALS (29 sets, daily range): BP systolic 80–92; BP diastolic 51–69; PULSE 77–112; RESP 14–31; TEMP 37.5–38.2; O2SAT 91–99
[2022-03-25] MEDS: Albuterol 2.5 MG/3 ML VIAL.NEB. INHALATION (00:27)
[2022-03-25 04:24] LABS: Absolute Lymphocyte Count 1.18 X10^3/uL (0.83-4.51); Absolute Neutrophil Count 7.8 X10^3/uL (2.0-7.7); Basophil# 0.02 X10^3/uL; Basophil% 0.2 % (0-1); Eosinophil# 0.12 X10^3/uL; Eosinophils% 1.1 % (0-5); Hematocrit 39.7 % (40-54); Lymphocyte # 1.18 X10^3/ul (0.83-4.51); Lymphocyte % 11.1 % (19-41); Mean Corp Hgb Conc 32.7 g/dL (32-36); Mean Corpuscular Hgb 31.8 pg (27.0-32.0); Mean Corpuscular Volume 97.1 fL (80-94); Mean Platelet Vol. 11.4 fl (6.2-12.0); Monocyte# 1.38 X10^3/uL; NRBC Flagged by Analyzer 0 % (0-5); Neutrophil # 7.77 X10^3/uL (2.7-7.7); Platelet Count 281 K/mm3 (150-450); RBC Distribution Width CV 12.8 % (11.6-14.6); RBC Distribution Width SD 45.5 fl (35.1-43.9); Red Blood Count 4.09 M/mm3 (4.6-6.2); White Blood Count 10.6 K/mm3 (4.4-11.0)
[2022-03-25 04:40] LABS: AST(SGOT) 40 U/L (15-37); Alanine Aminotransfer ALT/SGPT 37 U/L (16-61); Albumin, Serum 2.3 g/dL (3.2-5.0); Alkaline Phosphatase 140 U/L (45-117); Anion Gap 6 (5-15); BUN 23 mg/dL (7-18); BUN/Creat Ratio 23.6 RATIO (10-20); Bilirubin, Direct 0.34 mg/dL (0.00-0.30); Chloride 103 mmol/L (98-107); Creatinine, Serum 0.97 mg/dL (0.70-1.30); EST Glomerular Filtration Rate 83 mL/min (>60); Est Glom Filt Rate - Afr Amer 100 mL/min (>60); Globulin 3.7 g/dL (2.2-4.2); Glucose 115 mg/dL (74-106); Magnesium 2.2 mg/dL (1.6-2.6); Phosphorus 3.5 mg/dL (2.5-4.9); Potassium 3.2 mmol/L (3.5-5.1); Sodium Level 141 mmol/L (136-145)
[2022-03-25] MEDS: Ondansetron 4 MG/2 ML Vial IV (06:56)
[2022-03-25] MEDS: Potassium Chloride 10mEq/100mL 10 MEQ/100 ML IV.SOLN. 100 MEQ IV BOLUS ×4 (06:57→10:23)
--- NOTE | 2022-03-25 06:58 | PN.CC_ITS ---
Assessment & Plan Assessment/Plan (1) Acute non-ST elevation myocardial infarction (NSTEMI): (2) Acute hypoxemic respiratory failure: PLAN: Plan RECOMMENDATIONS: 1. Continue to wean supplemental oxygen to maintain saturations at or above 90%. 2. Gentle diuresis as tolerated by hemodynamics and renal function. 3. Encourage incentive spirometer use and mobilize patient as tolerated. 4. Continue antimicrobials, pending finalized culture results. 5. Additional medical management per cardiology. IMPRESSIONS: 1. Acute hypoxemic respiratory failure in the setting of acute coronary syndrome Improved. The patient's cardiac catheterization revealed a totally occluded left circumflex artery, along with moderately severe mitral regurgitation. Attempted angioplasty of the circumflex artery was unsuccessful. The patient was ultimately intubated in the cardiac catheterization lab due to impending respiratory failure. The patient has improved from a respiratory perspective and was able to be successfully extubated without issue. He will be continued on empiric antimicrobials over concerns that he may have aspirated postextubation. Diuretics will be continued as tolerated by hemodynamics and renal function. Continue to wean supplemental oxygen to maintain saturations at or above 90%. Encourage incentive spirometer use and mobilize patient as tolerated. 2. Cardiogenic shock/paroxysmal atrial fibrillation Resolved. Continue medical management per cardiology recommendations. 3. Rhinovirus URI Continue supportive measures as noted above. This note was generated with [email or web address] dictation software. It may contain incorrect words, spelling, and punctuation that were not noted in checking the note before signing. Subjective Subjective The patient was seen and examined at the bedside this morning. Events from the last 24 hours have been reviewed. The patient is currently afebrile, hemodynamically stable and maintaining appropriate oxygen saturations on 6 L/min via nasal cannula. The patient has been weaned from Levophed. He is currently documented to be overall net +1.8 L for the hospitalization. Potassium is low this morning at 3.2. Overall, the patient believes that his breathing quality is slowly improving. Objective Data Objective Data The patient's most recent lab work, culture data and imaging studies have all been personally reviewed. Surface echocardiogram dated March 21 demonstrated an ejection fraction of 45% with moderately severe mitral valve insufficiency and a pulmonary artery systolic pressure of 60 mmHg. Respiratory viral panel was positive for rhinovirus. Vital Signs: Vital Signs Temp Pulse Resp BP Pulse Ox O2 Del Method O2 Flow Rate 99.5 F H 77 23 H 82/55 L 97 Nasal Cannula 6 03/25/22 06:00 03/25/22 06:00 03/25/22 06:00 03/25/22 06:00 03/25/22 06:00 03/25/22 06:00 03/25/22 06:00 FiO2 45 03/25/22 03:00 Oxygen Flow Rate (L/min) 6 Oxygen Delivery Method Nasal Cannula Weight: 195 lb 15.855 oz Body Mass Index (BMI) 26.8 Intake & Output: Intake and Output for Last 24 Hours 03/23/22 03/24/22 03/25/22 23:59 23:59 23:59 Intake Total 2483.23 / 2606.53 1667.38 / 1907.38 570 / 570 Output Total 745 / 1095 1125 / 1825 1999 / 1999 Balance 1738.23 / 1511.53 542.38 / 82.38 -1430 / -1430 Lab / Micro Data Attestation: I reviewed the patient's lab results. Result Diagrams: 03/25/22 04:18 03/25/22 04:18 Labs: Laboratory Results - last 24 hr 03/24/22 04:05: Diff Path Review Reviewed 03/24/22 04:05: B-Natriuretic Peptide 530.9 H 03/24/22 08:10: MRSA (PCR) Negative 03/24/22 10:50: Procalcitonin 0.13 H 03/25/22 04:18: WBC 10.6, RBC 4.09 L, Hgb 13.0, Hct 39.7 L, MCV 97.1 H, MCH 31.8, MCHC 32.7, RDW Std Deviation 45.5 H, RDW Coeff of Andrew 12.8, Plt Count 281, MPV 11.4, Immature Gran % (Auto) 1.600 H, Neut % (Auto) 73.0 H, Lymph % (Auto) 11.1 L, [place] % (Auto) 13.0 H, Eos % (Auto) 1.1, Baso % (Auto) 0.2, Absolute Neuts (auto) 7.8 H, Absolute Lymphs (auto) 1.18, Nucleated RBC % 0 03/25/22 04:18: Sodium 141, Potassium 3.2 L, Chloride 103, Carbon Dioxide 32.0, Anion Gap 6, BUN 23 H, Creatinine 0.97, Estim Creat Clear Calc 84.10, Est GFR (MDRD) Af Amer 100, Est GFR (MDRD) Non-Af 83, BUN/Creatinine Ratio 23.6 H, Glucose 115 H, Calcium 8.0 L, Phosphorus 3.5, Magnesium 2.2, Total Bilirubin 0.70, Direct Bilirubin 0.34 H, AST 40 H, ALT 37, Alkaline Phosphatase 140 H, Total Protein 6.0 L, Albumin 2.3 L, Globulin 3.7 Micro: Microbiology 03/21/22 17:00 Sputum, Induced/Lukens Gram Stain - Final 03/21/22 17:00 Sputum, Induced/Lukens Respiratory Culture - Preliminary Alpha Hemolytic Streptococcus 03/20/22 07:00 Blood Culture (Wb) - Anticubital Right Blood Culture - Preliminary No growth in 48 hours. 03/20/22 07:10 Blood Culture (Wb) - Anticubital Left Blood Culture - Pre liminary No growth in 48 hours. 03/20/22 11:02 Interface Orders Respiratory Panel (PCR) - Final Rhinovirus 03/20/22 09:56 Urine, Clean Catch Legionella Antigen - Final 03/20/22 09:56 Urine, Clean Catch Streptococcus pneumoniae Antigen (M - Final 03/20/22 09:58 Nasal Secretion SARS-CoV-2 Antigen (Rapid) - Final 03/20/22 09:02 Nasal Secretion SARS-CoV-2 Antigen (Rapid) - Final ABG Data ABG results: ABG 03/21/22 17:11 Specimen Type ART Sample Site Central Line pH 7.43 Bicarbonate Actual 26.2 H Total CO2 27 Base Excess 2 O2 Saturation 99 O2 % 85 ABG pCO2 39.5 ABG pO2 113 H Cameron Test N/A Respiration Rate 14 O2 Delivery Device Adult Vent Vent Mode AC Tidal Volume 500 POC PEEP 5 Radiography Diagnostic Testing: Radiology Impression Chest X-Ray 03/24/22 07:15 IMPRESSION: The endotracheal tube and orogastric tube have been removed. Persistent bilateral perihilar infiltrates although there is improved aeration. The right pleural effusion as clear. Electronically Signed: Jake Menezes MD at 12:28 EST , Rhythm Strip Rhythm Strip: Sinus Rhythm Physical Exam Const alert and no apparent distress Constitutional Narrative: Sitting in bedside recliner. General Appearance: cooperative HEENT normocephalic, head/scalp atraumatic and moist oral mucous membranes Eyes PERRL and EOMs intact bilaterally Neck supple General: trachea midline Chest inspection of chest normal Resp normal respiratory effort Auscultation: rales; Negative for rhonchi or wheezes Cardio regular rate and regular rhythm GI normal to inspection, nondistended, normoactive bowel sounds Extremity no clubbing, cyanosis or edema Skin no rashes or lesions noted Neuro oriented x3, CN's II-XII intact bilaterally, moves all extremities and no focal motor deficits Psych cooperative and affect normal Charges/Coding Visit Charges Inpatient E&M: 04631 Subs Hosp L3
[2022-03-25] MEDS: Ipratropium/Albuterol Sulfate 3 ML AMPUL.NEB INHALATION ×4 (07:15→18:31)
--- NOTE | 2022-03-25 07:27 | PCM.PN.HOSP ---
Subjective Subjective Patient seen had a relatively stable night. Blood pressure on the low side. Patient pressors have been weaned off. Plan is to advance activity as tolerated Objective Data Objective Data Vital Signs: Vital Signs Temp Pulse Resp BP Pulse Ox O2 Del Method O2 Flow Rate 99.5 F H 83 18 82/55 L 94 Nasal Cannula 5 03/25/22 06:00 03/25/22 07:16 03/25/22 07:16 03/25/22 06:00 03/25/22 07:18 03/25/22 07:18 03/25/22 07:18 FiO2 45 03/25/22 03:00 Oxygen Flow Rate (L/min) 5 Oxygen Delivery Method Nasal Cannula Weight: 88.9 kg Body Mass Index (BMI) 26.8 Intake & Output: Intake and Output for Last 24 Hours 03/23/22 03/24/22 03/25/22 23:59 23:59 23:59 Intake Total 2483.23 / 2606.53 1667.38 / 1907.38 570 / 570 Output Total 745 / 1095 1125 / 1825 1999 Balance 1738.23 / 1511.53 542.38 / 82.38 -1430 / -1430 Lab / Micro Data Result Diagrams: 03/25/22 04:18 03/25/22 04:18 Labs: Laboratory Results - last 24 hr 03/24/22 04:05: Diff Path Review Reviewed 03/24/22 04:05: B-Natriuretic Peptide 530.9 H 03/24/22 08:10: MRSA (PCR) Negative 03/24/22 10:50: Procalcitonin 0.13 H 03/25/22 04:18: WBC 10.6, RBC 4.09 L, Hgb 13.0, Hct 39.7 L, MCV 97.1 H, MCH 31.8, MCHC 32.7, RDW Std Deviation 45.5 H, RDW Coeff of Andrew 12.8, Plt Count 281, MPV 11.4, Immature Gran % (Auto) 1.600 H, Neut % (Auto) 73.0 H, Lymph % (Auto) 11.1 L, [place] % (Auto) 13.0 H, Eos % (Auto) 1.1, Baso % (Auto) 0.2, Absolute Neuts (auto) 7.8 H, Absolute Lymphs (auto) 1.18, Nucleated RBC % 0 03/25/22 04:18: Sodium 141, Potassium 3.2 L, Chloride 103, Carbon Dioxide 32.0, Anion Gap 6, BUN 23 H, Creatinine 0.97, Estim Creat Clear Calc 84.10, Est GFR (MDRD) Af Amer 100, Est GFR (MDRD) Non-Af 83, BUN/Creatinine Ratio 23.6 H, Glucose 115 H, Calcium 8.0 L, Phosphorus 3.5, Magnesium 2.2, Total Bilirubin 0.70, Direct Bilirubin 0.34 H, AST 40 H, ALT 37, Alkaline Phosphatase 140 H, Total Protein 6.0 L, Albumin 2.3 L, Globulin 3.7 Micro: Microbiology 03/21/22 17:00 Sputum, Induced/Lukens Gram Stain - Final 03/21/22 17:00 Sputum, Induced/Lukens Respiratory Culture - Preliminary Alpha Hemolytic Streptococcus 03/20/22 07:00 Blood Culture (Wb) - Anticubital Right Blood Culture - Preliminary No growth in 48 hours. 03/20/22 07:10 Blood Culture (Wb) - Anticubital Left Blood Culture - Preliminary No growth in 48 hours. 03/20/22 11:02 Interface Orders Respiratory Panel (PCR) - Final Rhinovirus 03/20/22 09:56 Urine, Clean Catch Legionella Antigen - Final 03/20/22 09:56 Urine, Clean Catch Streptococcus pneumoniae Antigen (M - Final 03/20/22 09:58 Nasal Secretion SARS-CoV-2 Antigen (Rapid) - Final 03/20/22 09:02 Nasal Secretion SARS-CoV-2 Antigen (Rapid) - Final Radiography Diagnostic Testing: Radiology Impression Chest X-Ray 03/24/22 07:15 IMPRESSION: The endotracheal tube and orogastric tube have been removed. Persistent bilateral perihilar infiltrates although there is improved aeration. The right pleural effusion as clear. Electronically Signed: Jake Menezes MD at 12:28 EST , Rhythm Strip Rhythm Strip: Sinus Rhythm Physical Exam Narrative GENERAL: Of the vent HEENT: Atraumatic; normocephalic EYES; Anicteric, Normal Conjunctiva NECK; supple, normal thyroid, RESPIRATORY: Diminished to auscultation CARDIOVASCULAR: Regular S1 S2, GI: soft, normoactive bowel sounds, : No Renal angle tenderness; EXTREMITIES: No edema, no clubbing, MUSCULOSKELETAL: no muscle wasting NEURO: Grossly intact no lateralizing signs SKIN: No Rash PSYCH; flat affect Assessment & Plan Assessment/Plan (1) Acute non-ST elevation myocardial infarction (NSTEMI): PLAN: Plan Patient is a 62-year-old gentleman presented with progressive shortness of breath. An assessment of acute hypoxia secondary to flash pulmonary edema as well as acute non-STEMI made admitted to a monitored bed for further management 1. Acute hypoxia - secondary to flash pulmonary edema. Patient was managed with diuretics admitted to a monitored bed placed on supplemental oxygen titrated to keep saturation greater than 90 ? Patient ended up being intubated following his left heart catheterization on 03/21/2022 ? 03/24/2022 patient was weaned off the vent. Currently 15 flow via nasal cannula to maintain adequate oxygen saturation ? 03/25/2022 patient on supplemental oxygen 2. Acute non-STEMI ? Patient EKG demonstrated ST segment depression in V2 to V3 with T wave inversions in V4?V5 V6. His troponin was markedly elevated at 19,000. Treatment initiated per protocol. Consult placed to cardiology plans for patient to undergo left heart catheterization with intervention if needed Patient underwent LHC on 03/21/2022 which demonstrated totally occluded left circumflex artery, patent LAD and and a nondominant right coronary artery. ? His ejection fraction was markedly reduced with severe mitral regurgitation. An attempted angioplasty of the circumflex artery was unsuccessful. He apparently developed some clots in the LAD which was treated he had IABP and was intubated and transferred to the intensive care unit ? 03/23/2022. IABP remains in place Case discussed with Dr. Lamas 03/24/2022 IABP discontinued 3. Cardiogenic shock IABP in place as well as patient being on Levophed -03/24/2022 IABP discontinued ? 03/25/2022. Patient Levophed has been weaned off blood pressure however remains relatively low 4. Mechanical ventilation ? Patient was intubated following his LHC. Vent management deferred to pulmonary/critical care medicine ? 03/24/2022 patient has been weaned off the vent 5. Transient A. fib ? Patient started on amiodarone drip. Patient is on azithromycin discontinued due to potential for QT prolongation while on amiodarone ? 03/25/2022; patient is on p.o. amiodarone 6. Hypokalemia ? Corrected per protocol repeat labs ordered for a.m. 7. Valvular heart disease -with severe mitral valve regurgitation 8. Bilateral pulmonary infiltrate ? Secondary to rhinovirus infection patient treated symptomatically. Patient was empirically started on ceftriaxone and azithromycin for suspected superimposed bacterial pneumonia, given his elevated WBC count. ? 03/23/2022 azithromycin discontinued -03/24/2022 remains on antibiotics and high flow oxygen 9. Elevated transaminitis ? Suspected to be secondary to patient acute non-STEMI monitoring ? 03/24/2022 patient acute transaminitis resolved 10. DVT prophylaxis ? Patient is on heparin 11. Physical deconditioning - Requested for PT OT eval and social welfare research worker to assist with discharge planning Charges/Coding Visit Charges Inpatient E&M: 09899 Subs Hosp L2
[2022-03-25] MEDS: Spironolactone 25 MG Tablet 12.5 MG PO (08:29)
[2022-03-25] MEDS: Aspirin 81 MG TAB.CHEW PO (08:29)
[2022-03-25] MEDS: Furosemide 40 MG Tablet PO (08:30)
[2022-03-25] MEDS: Amiodarone 200 MG Tablet PO (08:31)
[2022-03-25] MEDS: TICAGRELOR 90 MG TABLET PO ×2 (08:31→21:13)
[2022-03-25] MEDS: Senna/Docusate Sodium 1 Tablet 2 TABLET GT ×2 (08:32→21:13)
[2022-03-25] MEDS: Lisinopril 2.5 MG Tablet PO (08:49)
--- NOTE | 2022-03-25 09:15 | PCM.PN.CARD ---
Subjective Subjective Feeling good. Sitting up in the chair. Comfortable. Denies any shortness of breath. No chest pain. Objective Data Vital Signs: Vital Signs Temp Pulse Resp BP Pulse Ox O2 Del Method O2 Flow Rate 99.5 F H 88 18 91/69 95 Nasal Cannula 4 03/25/22 08:00 03/25/22 08:32 03/25/22 08:00 03/25/22 08:32 03/25/22 09:09 03/25/22 09:09 03/25/22 09:09 FiO2 45 03/25/22 03:00 Oxygen Flow Rate (L/min) 4 Oxygen Delivery Method Nasal Cannula Weight: 195 lb 15.855 oz Body Mass Index (BMI) 26.8 Intake & Output: Intake and Output for Last 24 Hours 03/23/22 03/24/22 03/25/22 23:59 23:59 23:59 Intake Total 2483.23 / 2606.53 1667.38 / 1907.38 670 / 670 Output Total 745 / 1095 1125 / 1825 1999 / 1999 Balance 1738.23 / 1511.53 542.38 / 82.38 -1330 / -1330 Lab / Micro Data Result Diagrams: 03/25/22 04:18 03/25/22 04:18 Labs: Laboratory Results - last 24 hr 03/24/22 04:05: Diff Path Review Reviewed 03/24/22 04:05: B-Natriuretic Peptide 530.9 H 03/24/22 08:10: MRSA (PCR) Negative 03/24/22 10:50: Procalcitonin 0.13 H 03/25/22 04:18: WBC 10.6, RBC 4.09 L, Hgb 13.0, Hct 39.7 L, MCV 97.1 H, MCH 31.8, MCHC 32.7, RDW Std Deviation 45.5 H, RDW Coeff of Andrew 12.8, Plt Count 281, MPV 11.4, Immature Gran % (Auto) 1.600 H, Neut % (Auto) 73.0 H, Lymph % (Auto) 11.1 L, [place] % (Auto) 13.0 H, Eos % (Auto) 1.1, Baso % (Auto) 0.2, Absolute Neuts (auto) 7.8 H, Absolute Lymphs (auto) 1.18, Nucleated RBC % 0 03/25/22 04:18: Sodium 141, Potassium 3.2 L, Chloride 103, Carbon Dioxide 32.0, Anion Gap 6, BUN 23 H, Creatinine 0.97, Estim Creat Clear Calc 84.10, Est GFR (MDRD) Af Amer 100, Est GFR (MDRD) Non-Af 83, BUN/Creatinine Ratio 23.6 H, Glucose 115 H, Calcium 8.0 L, Phosphorus 3.5, Magnesium 2.2, Total Bilirubin 0.70, Direct Bilirubin 0.34 H, AST 40 H, ALT 37, Alkaline Phosphatase 140 H, Total Protein 6.0 L, Albumin 2.3 L, Globulin 3.7 Micro: Microbiology 03/21/22 17:00 Sputum, Induced/Lukens Gram Stain - Final 03/21/22 17:00 Sputum, Induced/Lukens Respiratory Culture - Final 03/20/22 07:10 Blood Culture (Wb) - Anticubital Left Blood Culture - Final No growth in 5 days. 03/20/22 07:00 Blood Culture (Wb) - Anticubital Right Blood Culture - Final No growth in 5 days. Rhythm Strip Rhythm Strip: Sinus Rhythm Cardiology Labs/Tests 03/24/22 04:05: B-Natriuretic Peptide 530.9 H 03/25/22 04:18: WBC 10.6, RBC 4.09 L, Hgb 13.0, Hct 39.7 L, MCV 97.1 H, MCH 31.8, MCHC 32.7, Plt Count 281, MPV 11.4, Immature Gran % (Auto) 1.600 H, Neut % (Auto) 73.0 H, Lymph % (Auto) 11.1 L, [place] % (Auto) 13.0 H, Eos % (Auto) 1.1, Baso % (Auto) 0.2, Absolute Neuts (auto) 7.8 H, Nucleated RBC % 0 03/25/22 04:18: Sodium 141, Potassium 3.2 L, Chloride 103, Carbon Dioxide 32.0, Anion Gap 6, BUN 23 H, Creatinine 0.97, Est GFR (MDRD) Af Amer 100, Est GFR (MDRD) Non-Af 83, BUN/Creatinine Ratio 23.6 H, Glucose 115 H, Calcium 8.0 L, Phosphorus 3.5, Magnesium 2.2, Total Bilirubin 0.70, Direct Bilirubin 0.34 H Rhythm: EKG: ECHO: Stress Test: Cardiac Cath: PCI: CT Surgery: Holter monitor: EPS: PPM: CXR: Chest CT Scan: Radiography Diagnostic Testing: Radiology Impression Chest X-Ray 03/24/22 07:15 IMPRESSION: The endotracheal tube and orogastric tube have been removed. Persistent bilateral perihilar infiltrates although there is improved aeration. The right pleural effusion as clear. Electronically Signed: Jake Menezes MD at 12:28 EST , Physical Exam Narrative Comfortable. No distress. Heart sounds 1 and 2 normal. Chest examination shows somewhat decreased breath sounds at bilateral bases. No ankle edema. Alert oriented x3. Assessment & Plan Assessment/Plan (1) Acute non-ST elevation myocardial infarction (NSTEMI): PLAN: I believe the patient's event was subacute. Completely occluded proximal left circumflex. Continue medical management. I think it would be worth giving it another try at opening the left circumflex possibly next week. (2) CHF (congestive heart failure): PLAN: Improved. Continue Lasix. We will switch to IV for a couple of days. Continue LAKESHA inhibitor. (3) Mitral regurgitation: PLAN: Likely ischemic. See #2 above. (4) Acute hypoxemic respiratory failure: PLAN: Successfully weaned off the ventilator. Follow as per pulmonology. Running fever this morning. Manage as per critical care/medicine.
[2022-03-25] MEDS: Acetaminophen 325 MG Tablet 650 MG PO (15:35)
[2022-03-25] MEDS: Furosemide 40 MG/4 ML Vial IV (17:04)
[2022-03-25] MEDS: 0.9% Saline Lock 10 ML Syringe IV (21:11)
[2022-03-25] MEDS: MELATONIN 10 MG TABLET 5 MG PO (21:13)
[2022-03-25] MEDS: Atorvastatin Calcium 40 MG Tablet PO (21:13)
[2022-03-26] VITALS (22 sets, daily range): BP systolic 80–97; BP diastolic 53–73; PULSE 85–102; RESP 13–36; TEMP 36.8–37.8; O2SAT 28–97
[2022-03-26 04:53] LABS: Absolute Lymphocyte Count 1.45 X10^3/uL (0.83-4.51); Absolute Neutrophil Count 6.9 X10^3/uL (2.0-7.7); Basophil# 0.05 X10^3/uL; Basophil% 0.5 % (0-1); Eosinophil# 0.17 X10^3/uL; Eosinophils% 1.7 % (0-5); Hematocrit 38.2 % (40-54); Hemoglobin 12.4 g/dL (13.0-16.5); Lymphocyte # 1.45 X10^3/ul (0.83-4.51); Lymphocyte % 14.3 % (19-41); Mean Corp Hgb Conc 32.5 g/dL (32-36); Mean Corpuscular Hgb 31.7 pg (27.0-32.0); Mean Corpuscular Volume 97.7 fL (80-94); Mean Platelet Vol. 11.5 fl (6.2-12.0); Monocyte# 1.36 X10^3/uL; Monocyte% 13.4 % (0-10); NRBC Flagged by Analyzer 0 % (0-5); Neutrophil % 68.1 % (47-70); Platelet Count 301 K/mm3 (150-450); RBC Distribution Width CV 12.9 % (11.6-14.6); RBC Distribution Width SD 46.3 fl (35.1-43.9); Red Blood Count 3.91 M/mm3 (4.6-6.2); White Blood Count 10.1 K/mm3 (4.4-11.0)
[2022-03-26 05:11] LABS: AST(SGOT) 41 U/L (15-37); Alanine Aminotransfer ALT/SGPT 44 U/L (16-61); Albumin, Serum 2.2 g/dL (3.2-5.0); Alkaline Phosphatase 146 U/L (45-117); Anion Gap 7 (5-15); BUN 27 mg/dL (7-18); Bilirubin, Direct 0.29 mg/dL (0.00-0.30); Calcium,Total 7.6 mg/dL (8.5-10.1); Chloride 104 mmol/L (98-107); EST Glomerular Filtration Rate 81 mL/min (>60); Est Glom Filt Rate - Afr Amer 97 mL/min (>60); Estimated Creatinine Clearance 81.58 ml/min; Globulin 3.4 g/dL (2.2-4.2); Glucose 92 mg/dL (74-106); Magnesium 2.4 mg/dL (1.6-2.6); Potassium 3.3 mmol/L (3.5-5.1); Protein, Total 5.6 g/dL (6.4-8.2); Sodium Level 141 mmol/L (136-145)
--- NOTE | 2022-03-26 06:16 | PCM.PN.INT ---
Assessment & Plan Assessment/Plan (1) Acute non-ST elevation myocardial infarction (NSTEMI): (2) Acute hypoxemic respiratory failure: PLAN: Plan RECOMMENDATIONS: 1. Continue to wean supplemental oxygen to maintain saturations at or above 90%. 2. Gentle diuresis as tolerated by hemodynamics and renal function. 3. Encourage incentive spirometer use and mobilize patient as tolerated. 4. Continue antimicrobials, pending finalized culture results. 5. Additional medical management per cardiology. IMPRESSIONS: 1. Acute hypoxemic respiratory failure in the setting of acute coronary syndrome Improved. The patient's cardiac catheterization revealed a totally occluded left circumflex artery, along with moderately severe mitral regurgitation. Attempted angioplasty of the circumflex artery was unsuccessful. The patient was ultimately intubated in the cardiac catheterization lab due to impending respiratory failure. The patient has improved from a respiratory perspective and was able to be successfully extubated without issue. He will be continued on empiric antimicrobials over concerns that he may have aspirated postextubation. Diuretics will be continued as tolerated by hemodynamics and renal function. Continue to wean supplemental oxygen to maintain saturations at or above 90%. Encourage incentive spirometer use and mobilize patient as tolerated. 2. Cardiogenic shock/paroxysmal atrial fibrillation Resolved. Continue medical management per cardiology recommendations. 3. Rhinovirus URI Continue supportive measures as noted above. This note was generated with [employer] dictation software. It may contain incorrect words, spelling, and punctuation that were not noted in checking the note before signing. Subjective Subjective The patient was seen and examined at the bedside this morning. Events from the last 24 hours have been reviewed. The patient is currently afebrile, hemodynamically stable and maintaining appropriate oxygen saturations on 5 L/min via nasal cannula. The patient is documented to be overall net +1 L for the hospitalization. Potassium is low this morning at 3.3. There is confusion as to what the plans are from a cardiology perspective with regard to his future care. Objective Data Objective Data The patient's most recent lab work, culture data and imaging studies have all been personally reviewed. Surface echocardiogram dated March 21 demonstrated an ejection fraction of 45% with moderately severe mitral valve insufficiency and a pulmonary artery systolic pressure of 60 mmHg. Respiratory viral panel was positive for rhinovirus. Vital Signs: Vital Signs Temp Pulse Resp BP Pulse Ox O2 Del Method O2 Flow Rate 99.7 F H 85 31 H 83/60 L 94 Nasal Cannula 5 11/19/22 05:00 03/26/22 05:00 03/26/22 05:00 03/26/22 05:00 03/26/22 05:00 03/26/22 05:00 03/26/22 05:00 FiO2 45 03/25/22 03:00 Oxygen Flow Rate (L/min) 5 Oxygen Delivery Method Nasal Cannula Weight: 192 lb 7.417 oz Body Mass Index (BMI) 26.8 Intake & Output: Intake and Output for Last 24 Hours 03/24/22 03/25/22 03/26/22 23:59 23:59 23:59 Intake Total 1667.38 / 1907.38 1734 / 1734 113.5 / 113.5 Output Total 1125 / 1825 4125 / 4125 Balance 542.38 / 82.38 -2391 / -2391 113.5 / 113.5 Lab / Micro Data Attestation: I reviewed the patient's lab results. Result Diagrams: 03/26/22 03:15 03/26/22 03:15 Labs: Laboratory Results - last 24 hr 03/26/22 03:15: WBC 10.1, RBC 3.91 L, Hgb 12.4 L, Hct 38.2 L, MCV 97.7 H, MCH 31.7, MCHC 32.5, RDW Std Deviation 46.3 H, RDW Coeff of Andrew 12.9, Plt Count 301, MPV 11.5, Immature Gran % (Auto) 2.000 H, Neut % (Auto) 68.1, Lymph % (Auto) 14.3 L, [place] % (Auto) 13.4 H, Eos % (Auto) 1.7, Baso % (Auto) 0.5, Absolute Neuts (auto) 6.9, Absolute Lymphs (auto) 1.45, Nucleated RBC % 0 03/26/22 03:15: Sodium 141, Potassium 3.3 L, Chloride 104, Carbon Dioxide 30.0, Anion Gap 7, BUN 27 H, Creatinine 1.00, Estim Creat Clear Calc 81.58, Est GFR (MDRD) Af Amer 97, Est GFR (MDRD) Non-Af 81, BUN/Creatinine Ratio 27.0 H, Glucose 92, Calcium 7.6 L, Phosphorus 4.0, Magnesium 2.4, Total Bilirubin 0.70, Direct Bilirubin 0.29, AST 41 H, ALT 44, Alkaline Phosphatase 146 H, Total Protein 5.6 L, Albumin 2.2 L, Globulin 3.4 Micro: Microbiology 03/21/22 17:00 Sputum, Induced/Lukens Gram Stain - Final 03/21/22 17:00 Sputum, Induced/Lukens Respiratory Culture - Final 03/20/22 07:10 Blood Culture (Wb) - Anticubital Left Blood Culture - Final No growth in 5 days. 03/20/22 07:00 Blood Culture (Wb) - Anticubital Right Blood Culture - Final No growth in 5 days. 03/20/22 11:02 Interface Orders Respiratory Panel (PCR) - Final Rhinovirus 03/20/22 09:56 Urine, Clean Catch Legionella Antigen - Final 03/20/22 09:56 Urine, Clean Catch Streptococcus pneumoniae Antigen (M - Final 03/20/22 09:58 Nasal Secretion SARS-CoV-2 Antigen (Rapid) - Final 03/20/22 09:02 Nasal Secretion SARS-CoV-2 Antigen (Rapid) - Final ABG Data ABG results: ABG 03/21/22 17:11 Specimen Type ART Sample Site Central Line pH 7.43 Bicarbonate Actual 26.2 H Total CO2 27 Base Excess 2 O2 Saturation 99 O2 % 85 ABG pCO2 39.5 ABG pO2 113 H Cameron Test N/A Respiration Rate 14 O2 Delivery Device Adult Vent Vent Mode AC Tidal Volume 500 POC PEEP 5 Radiography Diagnostic Testing: Radiology Impression Chest X-Ray 03/24/22 07:15 IMPRESSION: The endotracheal tube and orogastric tube have been removed. Persistent bilateral perihilar infiltrates although there is improved aeration. The right pleural effusion as clear. Electronically Signed: Jake Menezes MD at 12:28 EST , Rhythm Strip Rhythm Strip: Sinus Rhythm Physical Exam Const alert and no apparent distress General Appearance: cooperative HEENT normocephalic, head/scalp atraumatic and moist oral mucous membranes Eyes PERRL and EOMs intact bilaterally Neck supple General: trachea midline Chest inspection of chest normal Resp normal respiratory effort Auscultation: rales; Negative for rhonchi or wheezes Cardio regular rate and regular rhythm GI normal to inspection, nondistended, normoactive bowel sounds Extremity no clubbing, cyanosis or edema Skin no rashes or lesions noted Neuro oriented x3, CN's II-XII intact bilaterally, moves all extremities and no focal motor deficits Psych cooperative and affect normal Charges/Coding Visit Charges Inpatient E&M: 50218 Subs Hosp L2
[2022-03-26] MEDS: Ipratropium/Albuterol Sulfate 3 ML AMPUL.NEB INHALATION ×3 (06:31→19:13)
[2022-03-26] MEDS: Potassium Chloride 10mEq/100mL 10 MEQ/100 ML IV.SOLN. 100 MEQ IV BOLUS ×4 (07:56→11:29)
--- NOTE | 2022-03-26 07:58 | PCM.PN.HOSP ---
Subjective Subjective Patient seen, had a relatively uneventful night. He states he had a restful night. Plan is for patient to undergo staged PCI of completely occluded proximal left circumflex early next week. Per patient and the their preference would be to have the procedure performed at a tertiary care center. This has been communicated to Dr. Fontanez Objective Data Objective Data Vital Signs: Vital Signs Temp Pulse Resp BP Pulse Ox O2 Del Method O2 Flow Rate 99.7 F H 88 13 86/58 L 95 Nasal Cannula 5 03/26/22 06:00 03/26/22 06:31 03/26/22 06:31 03/26/22 06:00 03/26/22 06:31 03/26/22 06:31 03/26/22 06:31 FiO2 45 03/25/22 03:00 Oxygen Flow Rate (L/min) 5 Oxygen Delivery Method Nasal Cannula Weight: 87.3 kg Body Mass Index (BMI) 26.8 Intake & Output: Intake and Output for Last 24 Hours 03/24/22 03/25/22 03/26/22 23:59 23:59 23:59 Intake Total 1667.38 / 1907.38 1734 / 1734 233.5 / 233.5 Output Total 1125 / 1825 4125 / 4125 450 / 450 Balance 542.38 / 82.38 -2391 / -2391 -216.5 / -216.5 Lab / Micro Data Result Diagrams: 03/26/22 03:15 03/26/22 03:15 Labs: Laboratory Results - last 24 hr 03/26/22 03:15: WBC 10.1, RBC 3.91 L, Hgb 12.4 L, Hct 38.2 L, MCV 97.7 H, MCH 31.7, MCHC 32.5, RDW Std Deviation 46.3 H, RDW Coeff of Andrew 12.9, Plt Count 301, MPV 11.5, Immature Gran % (Auto) 2.000 H, Neut % (Auto) 68.1, Lymph % (Auto) 14.3 L, [place] % (Auto) 13.4 H, Eos % (Auto) 1.7, Baso % (Auto) 0.5, Absolute Neuts (auto) 6.9, Absolute Lymphs (auto) 1.45, Nucleated RBC % 0 03/26/22 03:15: Sodium 141, Potassium 3.3 L, Chloride 104, Carbon Dioxide 30.0, Anion Gap 7, BUN 27 H, Creatinine 1.00, Estim Creat Clear Calc 81.58, Est GFR (MDRD) Af Amer 97, Est GFR (MDRD) Non-Af 81, BUN/Creatinine Ratio 27.0 H, Glucose 92, Calcium 7.6 L, Phosphorus 4.0, Magnesium 2.4, Total Bilirubin 0.70, Direct Bilirubin 0.29, AST 41 H, ALT 44, Alkaline Phosphatase 146 H, Total Protein 5.6 L, Albumin 2.2 L, Globulin 3.4 Micro: Microbiology 03/21/22 17:00 Sputum, Induced/Lukens Gram Stain - Final 03/21/22 17:00 Sputum, Induced/Lukens Respiratory Culture - Final 03/20/22 07:10 Blood Culture (Wb) - Anticubital Left Blood Culture - Final No growth in 5 days. 03/20/22 07:00 Blood Culture (Wb) - Anticubital Right Blood Culture - Final No growth in 5 days. 03/20/22 11:02 Interface Orders Respiratory Panel (PCR) - Final Rhinovirus 03/20/22 09:56 Urine, Clean Catch Legionella Antigen - Final 03/20/22 09:56 Urine, Clean Catch Streptococcus pneumoniae Antigen (M - Final 03/20/22 09:58 Nasal Secretion SARS-CoV-2 Antigen (Rapid) - Final 03/20/22 09:02 Nasal Secretion SARS-CoV-2 Antigen (Rapid) - Final Rhythm Strip Rhythm Strip: Sinus Rhythm Physical Exam Narrative GENERAL: Cooperative in no apparent distress HEENT: Atraumatic; normocephalic EYES; Anicteric, Normal Conjunctiva NECK; supple, normal thyroid, RESPIRATORY: Diminished to auscultation CARDIOVASCULAR: Regular S1 S2, GI: soft, normoactive bowel sounds, : No Renal angle tenderness; EXTREMITIES: No edema, no clubbing, MUSCULOSKELETAL: no muscle wasting NEURO: Grossly intact no lateralizing signs SKIN: No Rash PSYCH; flat affect Assessment & Plan Assessment/Plan (1) Acute non-ST elevation myocardial infarction (NSTEMI): PLAN: Plan Patient is a 62-year-old gentleman presented with progressive shortness of breath. An assessment of acute hypoxia secondary to flash pulmonary edema as well as acute non-STEMI made admitted to a monitored bed for further management 1. Acute hypoxia - secondary to flash pulmonary edema. Patient was managed with diuretics admitted to a monitored bed placed on supplemental oxygen titrated to keep saturation greater than 90 ? Patient ended up being intubated following his left heart catheterization on 03/21/2022 ? 03/24/2022 patient was weaned off the vent. Currently 15 flow via nasal cannula to maintain adequate oxygen saturation ? 03/25/2022 patient on supplemental oxygen ? 03/26/2022. Did encourage the use of incentive spirometry with plans to titrate oxygen down to keep saturation close to 90. 2. Acute non-STEMI ? Patient EKG demonstrated ST segment depression in V2 to V3 with T wave inversions in V4?V5 V6. His troponin was markedly elevated at 19,000. Treatment initiated per protocol. Consult placed to cardiology plans for patient to undergo left heart catheterization with intervention if needed Patient underwent LHC on 03/21/2022 which demonstrated totally occluded left circumflex artery, patent LAD and and a nondominant right coronary artery. ? His ejection fraction was markedly reduced with severe mitral regurgitation. An attempted angioplasty of the circumflex artery was unsuccessful. He apparently developed some clots in the LAD which was treated he had IABP and was intubated and transferred to the intensive care unit ? 03/23/2022. IABP remains in place Case discussed with Dr. Lamas 03/24/2022 IABP discontinued -03/26/2022 patient remains on recommended medication plan is for patient to undergo staged PCI of a completely occluded proximal left circumflex early next week. Patient and the would prefer for the procedure to be performed at a tertiary care center this has been communicated to the attending forest landscape ecology professor Dr. Fontanez 3. Acute congestive heart failure with reduced ejection fraction presenting with cardiogenic shock IABP in place as well as patient being on Levophed -03/24/2022 IABP discontinued ? 03/25/2022. Patient Levophed has been weaned off blood pressure however remains relatively low ? 03/26/2022 patient off pressors started on Lasix and low-dose LAKESHA inhibitor's 4. Mechanical ventilation ? Patient was intubated following his LHC. Vent management deferred to pulmonary/critical care medicine ? 03/24/2022 patient has been weaned off the vent 5. Transient A. fib ? Patient started on amiodarone drip. Patient is on azithromycin discontinued due to potential for QT prolongation while on amiodarone ? 03/25/2022; patient is on p.o. amiodarone 6. Hypokalemia ? Corrected per protocol repeat labs ordered for a.m. 7. Valvular heart disease -with severe mitral valve regurgitation 8. Bilateral pulmonary infiltrate ? Secondary to rhinovirus infection patient treated symptomatically. Patient was empirically started on ceftriaxone and azithromycin for suspected superimposed bacterial pneumonia, given his elevated WBC count. ? 03/23/2022 azithromycin discontinued -03/24/2022 remains on antibiotics and high flow oxygen 9. Elevated transaminitis ? Suspected to be secondary to patient acute non-STEMI monitoring ? 03/24/2022 patient acute transaminitis resolved 10. DVT prophylaxis ? Patient is on heparin 11. Physical deconditioning - Requested for PT OT eval and social insurance analyst to assist with discharge planning Charges/Coding Visit Charges Inpatient E&M: 22701 Subs Hosp L2
[2022-03-26] MEDS: Senna/Docusate Sodium 1 Tablet 2 TABLET GT (08:01)
[2022-03-26] MEDS: Aspirin 81 MG TAB.CHEW PO (08:01)
[2022-03-26] MEDS: Potassium Chloride Oral Tablet 20 MEQ PO (08:01)
[2022-03-26] MEDS: Spironolactone 25 MG Tablet 12.5 MG PO (08:02)
[2022-03-26] MEDS: Amiodarone 200 MG Tablet PO (08:03)
[2022-03-26] MEDS: CHLORHEXIDINE GLUC 2% CLOTH 1 EACH TOWELETTE TOPICAL (08:04)
[2022-03-26] MEDS: TICAGRELOR 90 MG TABLET PO ×2 (08:04→21:38)
[2022-03-26] MEDS: Furosemide 40 MG/4 ML Vial IV ×2 (08:05→17:58)
[2022-03-26] MEDS: Lisinopril 2.5 MG Tablet PO (08:06)
--- NOTE | 2022-03-26 11:52 | PN.CARD_ITS ---
Subjective Subjective Minimal shortness of breath with exertion. No chest pain. Objective Data Vital Signs: Vital Signs Temp Pulse Resp BP Pulse Ox O2 Del Method O2 Flow Rate 99.6 F H 95 21 H 88/60 L 94 Nasal Cannula 3 03/26/22 10:00 03/26/22 10:13 03/26/22 10:13 03/26/22 10:00 03/26/22 10:00 03/26/22 10:00 03/26/22 10:00 FiO2 45 03/25/22 03:00 Oxygen Flow Rate (L/min) 3 Oxygen Delivery Method Nasal Cannula Weight: 192 lb 7.417 oz Body Mass Index (BMI) 26.8 Intake & Output: Intake and Output for Last 24 Hours 03/24/22 03/25/22 03/26/22 23:59 23:59 23:59 Intake Total 1667.38 / 1907.38 1734 / 1734 583.5 / 583.5 Output Total 1125 / 1825 4125 / 4125 450 / 450 Balance 542.38 / 82.38 -2391 / -2391 133.5 / 133.5 Lab / Micro Data Result Diagrams: 03/26/22 03:15 03/26/22 03:15 Labs: Laboratory Results - last 24 hr 03/26/22 03:15: WBC 10.1, RBC 3.91 L, Hgb 12.4 L, Hct 38.2 L, MCV 97.7 H, MCH 31.7, MCHC 32.5, RDW Std Deviation 46.3 H, RDW Coeff of Andrew 12.9, Plt Count 301, MPV 11.5, Immature Gran % (Auto) 2.000 H, Neut % (Auto) 68.1, Lymph % (Auto) 14.3 L, [place] % (Auto) 13.4 H, Eos % (Auto) 1.7, Baso % (Auto) 0.5, Absolute Rachelle ts (auto) 6.9, Absolute Lymphs (auto) 1.45, Nucleated RBC % 0 03/26/22 03:15: Sodium 141, Potassium 3.3 L, Chloride 104, Carbon Dioxide 30.0, Anion Gap 7, BUN 27 H, Creatinine 1.00, Estim Creat Clear Calc 81.58, Est GFR (MDRD) Af Amer 97, Est GFR (MDRD) Non-Af 81, BUN/Creatinine Ratio 27.0 H, Glucose 92, Calcium 7.6 L, Phosphorus 4.0, Magnesium 2.4, Total Bilirubin 0.70, Direct Bilirubin 0.29, AST 41 H, ALT 44, Alkaline Phosphatase 146 H, Total Protein 5.6 L, Albumin 2.2 L, Globulin 3.4 Micro: Microbiology 03/21/22 17:00 Sputum, Induced/Lukens Gram Stain - Final 03/21/22 17:00 Sputum, Induced/Lukens Respiratory Culture - Final 03/20/22 07:10 Blood Culture (Wb) - Anticubital Left Blood Culture - Final No growth in 5 days. 03/20/22 07:00 Blood Culture (Wb) - Anticubital Right Blood Culture - Final No growth in 5 days. Rhythm Strip Rhythm Strip: Sinus Rhythm Cardiology Labs/Tests 03/26/22 03:15: WBC 10.1, RBC 3.91 L, Hgb 12.4 L, Hct 38.2 L, MCV 97.7 H, MCH 31.7, MCHC 32.5, Plt Count 301, MPV 11.5, Immature Gran % (Auto) 2.000 H, Neut % (Auto) 68.1, Lymph % (Auto) 14.3 L, [place] % (Auto) 13.4 H, Eos % (Auto) 1.7, Baso % (Auto) 0.5, Absolute Neuts (auto) 6.9, Nucleated RBC % 0 03/26/22 03:15: Sodium 141, Potassium 3.3 L, Chloride 104, Carbon Dioxide 30.0, Anion Gap 7, BUN 27 H, Creatinine 1.00, Est GFR (MDRD) Af Amer 97, Est GFR (MDRD) Non-Af 81, BUN/Creatinine Ratio 27.0 H, Glucose 92, Calcium 7.6 L, Phosphorus 4.0, Magnesium 2.4, Total Bilirubin 0.70, Direct Bilirubin 0.29 Rhythm: EKG: ECHO: Stress Test: Cardiac Cath: PCI: CT Surgery: Holter monitor: EPS: PPM: CXR: Chest CT Scan: Physical Exam Narrative Comfortable. No distress. Heart sounds 1 and 2 normal. Chest examination shows somewhat decreased breath sounds at bilateral bases. No ankle edema. Alert oriented x3. Assessment & Plan Assessment/Plan (1) Acute non-ST elevation myocardial infarction (NSTEMI): PLAN: I believe the patient's event was subacute. Completely occluded proximal left circumflex. Continue medical management. I think it would be worth giving it another try at opening the left circumflex possibly next week. Continue medical management meanwhile. (2) CHF (congestive heart failure): PLAN: Improved. Continue Lasix. We will switch to IV for a couple of days. Continue LAKESHA inhibitor. Increase dose as tolerated. Start on digoxin. (3) Mitral regurgitation: PLAN: Likely ischemic. See #2 above. (4) Atrial fibrillation: PLAN: In the setting of acute congestive heart failure. Maintaining normal sinus rhythm. On amiodarone. (5) Acute hypoxemic respiratory failure: PLAN: Successfully weaned off the ventilator. Follow as per pulmonology. (6) Pyrexia: PLAN: Low-grade fever. On antibiotics. Follow as per intensive care.
[2022-03-26] MEDS: Digoxin 250 MCG Tablet PO (13:10)
--- NOTE | 2022-03-26 14:49 | NURSING ---
report called to [facility] transferred per chair to room 117 with belongings ,family present
[2022-03-26] MEDS: 0.9% Saline Lock 10 ML Syringe IV ×2 (17:59→21:50)
[2022-03-26] MEDS: Digoxin 250 MCG Tablet 500 MCG PO (18:04)
[2022-03-26] MEDS: Atorvastatin Calcium 40 MG Tablet PO (21:38)
[2022-03-26] MEDS: MELATONIN 10 MG TABLET 5 MG PO (21:43)
[2022-03-27] VITALS (9 sets, daily range): BP systolic 87–89; BP diastolic 60–64; PULSE 67–89; RESP 12–20; TEMP 36.8–37.3; O2SAT 94–96
[2022-03-27] MEDS: Ipratropium/Albuterol Sulfate 3 ML AMPUL.NEB INHALATION ×3 (06:47→15:01)
--- NOTE | 2022-03-27 07:10 | PN.CC_ITS ---
Assessment & Plan Assessment/Plan (1) Acute non-ST elevation myocardial infarction (NSTEMI): (2) Acute hypoxemic respiratory failure: PLAN: Plan RECOMMENDATIONS: 1. Gentle diuresis as tolerated by hemodynamics and renal function. 2. Encourage incentive spirometer use and mobilize patient as tolerated. 3. Okay to discontinue antimicrobials from my perspective. 4. Additional medical management per cardiology. 5. Given the patient's lack of further ICU or pulmonary needs, will sign off. Please call with any additional questions. IMPRESSIONS: 1. Acute hypoxemic respiratory failure in the setting of acute coronary syndrome Improved. The patient's cardiac catheterization revealed a totally occluded left circumflex artery, along with moderately severe mitral regurgitation. Attempted angioplasty of the circumflex artery was unsuccessful. The patient was ultimately intubated in the cardiac catheterization lab due to impending re spiratory failure. The patient has improved from a respiratory perspective and was able to be successfully extubated without issue. Given negative sputum culture results, antibiotics can be discontinued from my perspective. Diuretics will be continued as tolerated by hemodynamics and renal function. Continue to wean supplemental oxygen to maintain saturations at or above 90%. Encourage incentive spirometer use and mobilize patient as tolerated. 2. Cardiogenic shock/paroxysmal atrial fibrillation Resolved. Continue medical management per cardiology recommendations. 3. Rhinovirus URI Continue supportive measures as noted above. This note was generated with [employer] dictation software. It may contain incorrect words, spelling, and punctuation that were not noted in checking the note before signing. Subjective Subjective The patient was seen and examined at the bedside this morning. Events from the last 24 hours have been reviewed. The patient is currently afebrile, hemodynamically stable and maintaining appropriate oxygen saturations on room air. No overnight events were reported. Objective Data Objective Data The patient's most recent lab work, culture data and imaging studies have all been personally reviewed. Surface echocardiogram dated March 21 demonstrated an ejection fraction of 45% with moderately severe mitral valve insufficiency and a pulmonary artery systolic pressure of 60 mmHg. Respiratory viral panel was positive for rhinovirus. Vital Signs: Vital Signs Temp Pulse Resp BP Pulse Ox O2 Del Method O2 Flow Rate 99.1 F 86 16 89/64 L 94 Room Air 3 03/27/22 03:35 03/27/22 03:35 03/27/22 03:35 03/27/22 03:35 03/27/22 03:35 03/27/22 03:35 03/26/22 22:00 FiO2 45 03/25/22 03:00 Oxygen Flow Rate (L/min) 3 Oxygen Delivery Method Room Air Weight: 188 lb 0.869 oz Body Mass Index (BMI) 26.8 Intake & Output: Intake and Output for Last 24 Hours 03/25/22 03/26/22 03/27/22 23:59 23:59 23:59 Intake Total 1734 / 1734 1383.5 / 1383.5 50 / 50 Output Total 4125 / 4125 2800 / 2800 400 / 400 Balance -2391 / -2391 -1416.5 / -1416.5 -350 / -350 Lab / Micro Data Attestation: I reviewed the patient's lab results. Result Diagrams: 03/26/22 03:15 03/26/22 03:15 Labs: Laboratory Results - last 24 hr 03/26/22 03:15: WBC 10.1, RBC 3.91 L, Hgb 12.4 L, Hct 38.2 L, MCV 97.7 H, MCH 31.7, MCHC 32.5, RDW Std Deviation 46.3 H, RDW Coeff of Andrew 12.9, Plt Count 301, MPV 11.5, Immature Gran % (Auto) 2.000 H, Neut % (Auto) 68.1, Lymph % (Auto) 14.3 L, [place] % (Auto) 13.4 H, Eos % (Auto) 1.7, Baso % (Auto) 0.5, Absolute Neuts (auto) 6.9, Absolute Lymphs (auto) 1.45, Nucleated RBC % 0 03/26/22 03:15: Sodium 141, Potassium 3.3 L, Chloride 104, Carbon Dioxide 30.0, Anion Gap 7, BUN 27 H, Creatinine 1.00, Estim Creat Clear Calc 81.58, Est GFR (MDRD) Af Amer 97, Est GFR (MDRD) Non-Af 81, BUN/Creatinine Ratio 27.0 H, G lucose 92, Calcium 7.6 L, Phosphorus 4.0, Magnesium 2.4, Total Bilirubin 0.70, Direct Bilirubin 0.29, AST 41 H, ALT 44, Alkaline Phosphatase 146 H, Total Protein 5.6 L, Albumin 2.2 L, Globulin 3.4 Micro: Microbiology 11/14/22 17:00 Sputum, Induced/Lukens Gram Stain - Final 03/21/22 17:00 Sputum, Induced/Lukens Respiratory Culture - Final 03/20/22 07:10 Blood Culture (Wb) - Anticubital Left Blood Culture - Final No growth in 5 days. 03/20/22 07:00 Blood Culture (Wb) - Anticubital Right Blood Culture - Final No growth in 5 days. 03/20/22 11:02 Interface Orders Respiratory Panel (PCR) - Final Rhinovirus 03/20/22 09:56 Urine, Clean Catch Legionella Antigen - Final 03/20/22 09:56 Urine, Clean Catch Streptococcus pneumoniae Antigen (M - Final 03/20/22 09:58 Nasal Secretion SARS-CoV-2 Antigen (Rapid) - Final 03/20/22 09:02 Nasal Secretion SARS-CoV-2 Antigen (Rapid) - Final ABG Data ABG results: ABG 03/21/22 17:11 Specimen Type ART Sample Site Central Line pH 7.43 Bicarbonate Actual 26.2 H Total CO2 27 Base Excess 2 O2 Saturation 99 O2 % 85 ABG pCO2 39.5 ABG pO2 113 H Cameron Test N/A Respiration Rate 14 O2 Delivery Device Adult Vent Vent Mode AC Tidal Volume 500 POC PEEP 5 Radiography Diagnostic Testing: Radiology Impression Chest X-Ray 03/24/22 07:15 IMPRESSION: The endotracheal tube and orogastric tube have been removed. Persistent bilateral perihilar infiltrates although there is improved aeration. The right pleural effusion as clear. Electronically Signed: Jake Menezes MD at 12:28 EST , Rhythm Strip Rhythm Strip: Sinus Rhythm Physical Exam Const alert and no apparent distress General Appearance: cooperative HEENT normocephalic, head/scalp atraumatic and moist oral mucous membranes Eyes PERRL and EOMs intact bilaterally Neck supple General: trachea midline Chest inspection of chest normal Resp normal respiratory effort Auscultation: rales; Negative for rhonchi or wheezes Cardio regular rate and regular rhythm GI normal to inspection, nondistended, normoactive bowel sounds Extremity no clubbing, cyanosis or edema Skin no rashes or lesions noted Neuro oriented x3, CN's II-XII intact bilaterally, moves all extremities and no focal motor deficits Psych cooperative and affect normal Charges/Coding Visit Charges Inpatient E&M: 29497 Subs Hosp L2
--- NOTE | 2022-03-27 07:30 | PN.HOSP_ITS ---
Subjective Subjective Transferred from ICU to PCU, patient has been weaned off oxygen Objective Data Objective Data Vital Signs: Vital Signs Temp Pulse Resp BP Pulse Ox O2 Del Method O2 Flow Rate 99.1 F 86 16 89/64 L 94 Room Air 3 03/27/22 03:35 03/27/22 03:35 03/27/22 03:35 03/27/22 03:35 03/27/22 03:35 03/27/22 03:35 03/26/22 22:00 FiO2 45 03/25/22 03:00 Oxygen Flow Rate (L/min) 3 Oxygen Delivery Method Room Air Weight: 85.3 kg Body Mass Index (BMI) 26.8 Intake & Output: Intake and Output for Last 24 Hours 03/25/22 03/26/22 03/27/22 23:59 23:59 23:59 Intake Total 1734 / 1734 1383.5 / 1383.5 50 / 50 Output Total 4125 / 4125 2800 / 2800 400 / 400 Balance -2391 / -2391 -1416.5 / -1416.5 -350 / -350 Lab / Micro Data Result Diagrams: 03/26/22 03:15 03/26/22 03:15 Micro: Microbiology 03/21/22 17:00 Sputum, Induced/Lukens Gram Stain - Final 03/21/22 17:00 Sputum, Induced/Lukens Respiratory Culture - Final 03/20/22 07:10 Blood Culture (Wb) - Anticubital Left Blood Culture - Final No growth in 5 days. 03/20/22 07:00 Blood Culture (Wb) - Anticubital Right Blood Culture - Final No growth in 5 days. 03/20/22 11:02 Interface Orders Respiratory Panel (PCR) - Final Rhinovirus 03/20/22 09:56 Urine, Clean Catch Legionella Antigen - Final 03/20/22 09:56 Urine, Clean Catch Streptococcus pneumoniae Antigen (M - Final 03/20/22 09:58 Nasal Secretion SARS-CoV-2 Antigen (Rapid) - Final 03/20/22 09:02 Nasal Secretion SARS-CoV-2 Antigen (Rapid) - Final Rhythm Strip Rhythm Strip: Sinus Rhythm Physical Exam Narrative GENERAL: Cooperative in no apparent distress HEENT: Atraumatic; normocephalic EYES; Anicteric, Normal Conjunctiva NECK; supple, normal thyroid, RESPIRATORY: Diminished to auscultation CARDIOVASCULAR: Regular S1 S2, GI: soft, normoactive bowel sounds, : No Renal angle tenderness; EXTREMITIES: No edema, no clubbing, MUSCULOSKELETAL: no muscle wasting NEURO: Grossly intact no lateralizing signs SKIN: No Rash PSYCH; flat affect Assessment & Plan Assessment/Plan (1) Acute non-ST elevation myocardial infarction (NSTEMI): PLAN: Plan Patient is a 62-year-old gentleman presented with progressive shortness of breath. An assessment of acute hypoxia secondary to flash pulmonary edema as well as acute non-STEMI made admitted to a monitored bed for further management 1. Acute hypoxia - secondary to flash pulmonary edema. Patient was managed with diuretics admitted to a monitored bed placed on supplemental oxygen titrated to keep saturation greater than 90 ? Patient ended up being intubated following his left heart catheterization on 03/21/2022 ? 03/24/2022 patient was weaned off the vent. Currently 15 flow via nasal cannula to maintain adequate oxygen saturation ? 03/25/2022 patient on supplemental oxygen ? 03/26/2022. Did encourage the use of incentive spirometry with plans to titrate oxygen down to keep saturation close to 90. -03/27/2022; patient has been weaned off oxygen 2. Acute non-STEMI ? Patient EKG demonstrated ST segment depression in V2 to V3 with T wave inversions in V4?V5 V6. His troponin was markedly elevated at 19,000. Treatment initiated per protocol. Consult placed to cardiology plans for patient to undergo left heart catheterization with intervention if needed Patient underwent LHC on 03/21/2022 which demonstrated totally occluded left circumflex artery, patent LAD and and a nondominant right coronary artery. ? His ejection fraction was markedly reduced with severe mitral regurgitation. An attempted angioplasty of the circumflex artery was unsuccessful. He apparently developed some clots in the LAD which was treated he had IABP and was intubated and transferred to the intensive care unit ? 03/23/2022. IABP remains in place Case discussed with Dr. Lmaas 03/24/2022 IABP discontinued -03/26/2022 patient remains on recommended medication plan is for patient to undergo staged PCI of a completely occluded proximal left circumflex early next week. Patient and the would prefer for the procedure to be performed at a tertiary care center this has been communicated to the attending higher level teaching assistant Dr. Fontanez -03/27/2022; Patient encouraged to have a discussion with Dr Fontanez regarding further management 3. Acute congestive heart failure with reduced ejection fraction presenting with cardiogenic shock IABP in place as well as patient being on Levophed -03/24/2022 IABP discontinued ? 03/25/2022. Patient Levophed has been weaned off blood pressure however remains relatively low ? 03/26/2022 patient off pressors started on Lasix and low-dose LAKESHA inhibitor's 4. Mechanical ventilation ? Patient was intubated following his [facility]. Vent management deferred to pulmonary/critical care medicine ? 03/24/2022 patient has been weaned off the vent 5. Transient A. fib ? Patient started on amiodarone drip. Patient is on azithromycin discontinued due to potential for QT prolongation while on amiodarone ? 03/25/2022; patient is on p.o. amiodarone 6. Hypokalemia ? Corrected per protocol repeat labs ordered for a.m. 7. Valvular heart disease -with severe mitral valve regurgitation 8. Bilateral pulmonary infiltrate ? Secondary to rhinovirus infection patient treated symptomatically. Patient was empirically started on ceftriaxone and azithromycin for suspected superimposed bacterial pneumonia, given his elevated WBC count. ? 03/23/2022 azithromycin discontinued -03/24/2022 remains on antibiotics and high flow oxygen 9. Elevated transaminitis ? Suspected to be secondary to patient acute non-STEMI monitoring ? 03/24/2022 patient acute transaminitis resolved 10. DVT prophylaxis ? Patient is on heparin 11. Physical deconditioning - Requested for PT OT eval and director social service to assist with discharge planning Charges/Coding Visit Charges Inpatient E&M: 17506 Subs Hosp L2
[2022-03-27] MEDS: Aspirin 81 MG TAB.CHEW PO (09:18)
[2022-03-27] MEDS: Potassium Chloride Oral Tablet 20 MEQ PO (09:19)
[2022-03-27] MEDS: Spironolactone 25 MG Tablet 12.5 MG PO (09:21)
[2022-03-27] MEDS: TICAGRELOR 90 MG TABLET PO (09:24)
[2022-03-27] MEDS: Amiodarone 200 MG Tablet PO (09:24)
[2022-03-27] MEDS: Digoxin 125 MCG Tablet PO (09:25)
[2022-03-27] MEDS: Furosemide 40 MG/4 ML Vial IV (09:25)
[2022-03-27] MEDS: 0.9% Saline Lock 10 ML Syringe IV (09:26)
--- NOTE | 2022-03-27 12:18 | PCM.PN.CARD ---
Subjective Subjective Doing good. Denies any complaints. Ambulating. Denies any lightheadedness or dizziness. Objective Data Vital Signs: Vital Signs Temp Pulse Resp BP Pulse Ox O2 Del Method O2 Flow Rate 98.3 F 88 20 H 87/60 L 96 Room Air 3 03/27/22 09:35 03/27/22 10:55 03/27/22 10:55 03/27/22 09:35 03/27/22 09:35 03/27/22 10:00 03/27/22 06:47 FiO2 45 03/25/22 03:00 Oxygen Flow Rate (L/min) 3 Oxygen Delivery Method Room Air Weight: 188 lb 0.869 oz Body Mass Index (BMI) 26.8 Intake & Output: Intake and Output for Last 24 Hours 03/25/22 03/26/22 03/27/22 23:59 23:59 23:59 Intake Total 1734 / 1734 1383.5 / 1383.5 50 / 50 Output Total 4125 / 4125 2800 / 2800 400 / 400 Balance -2391 / -2391 -1416.5 / -1416.5 -350 / -350 Lab / Micro Data Result Diagrams: 03/26/22 03:15 03/26/22 03:15 Rhythm Strip Rhythm Strip: Sinus Rhythm Cardiology Labs/Tests Rhythm: EKG: ECHO: Stress Test: Cardiac Cath: PCI: CT Surgery: Holter monitor: EPS: PPM: CXR: Chest CT Scan: Physical Exam Narrative Comfortable. No apparent distress. Heart rate normal. Normal rhythm. Respirations unlabored. Alert oriented x3. Assessment & Plan Assessment/Plan (1) Acute non-ST elevation myocardial infarction (NSTEMI): PLAN: I believe the patient's event was subacute. Completely occluded proximal left circumflex. Continue medical management. I think it would be worth giving it another try at opening the left circumflex possibly next week. Patient wishes to be transferred to [facility] for further management. (2) CHF (congestive heart failure): PLAN: Improved. Continue Lasix. Changed to p.o. Continue LAKESHA inhibitor. Increase dose as tolerated. Start on digoxin. (3) Mitral regurgitation: PLAN: Likely ischemic. See #2 above. (4) Atrial fibrillation: PLAN: In the setting of acute congestive heart failure. Maintaining normal sinus rhythm. On amiodarone. (5) Acute hypoxemic respiratory failure: PLAN: Successfully weaned off the ventilator. Follow as per pulmonology. (6) Pyrexia: PLAN: Low-grade fever. On antibiotics. Follow as per intensive care.
--- NOTE | 2022-03-27 13:18 | PCM.HOSP.N ---
Hospitalist Note Case was discussed with Dr. Fontanez he recommended for patient to be transferred to [facility] call placed transfer process initiated
--- NOTE | 2022-03-27 14:37 | NURSING ---
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
--- NOTE | 2022-03-28 18:40 | PCM.DC.SUM ---
Providers Date of Admission: 03/20/22 Date of Discharge: 03/27/22 Primary Care Physician: Dr. Moshe Sanchez MD Reason For Visit: ELEVATED TROPONIN Diagnosis Discharge Diagnosis (1) Acute non-ST elevation myocardial infarction (NSTEMI): Status: Acute Code(s): I21.4 - Non-ST elevation (NSTEMI) myocardial infarction (2) CHF (congestive heart failure): Status: Acute Code(s): I50.9 - Heart failure, unspecified (3) Mitral regurgitation: Status: Acute Code(s): I34.0 - Nonrheumatic mitral (valve) insufficiency (4) Atrial fibrillation: Status: Acute Code(s): I48.91 - Unspecified atrial fibrillation (5) Acute hypoxemic respiratory failure: Status: Acute Code(s): J96.01 - Acute respiratory failure with hypoxia (6) Pyrexia: Status: Acute Code(s): R50.9 - Fever, unspecified Medications at Discharge Home Medications NK 03/20/22 Hospital Course Procedures 2-D Echocardiogram and Cardiac catheterization Summary of Care Provided Minutes Spent on Discharge: 40 Hospital Course: Patient is a 62-year-old gentleman presented with progressive shortness of breath.? An assessment of acute hypoxia secondary to flash pulmonary edema as well as acute non-STEMI made admitted to a monitored bed for further management 1.? Acute hypoxia - secondary to flash pulmonary edema.? Patient was managed with diuretics admitted to a monitored bed placed on supplemental oxygen titrated to keep saturation greater than 90 ? Patient ended up being intubated following his left heart catheterization on 03/21/2022 ? 03/24/2022 patient was weaned off the vent.? Currently 15 flow via nasal cannula to maintain adequate oxygen saturation ? 03/25/2022 patient on supplemental oxygen ? 03/26/2022.? Did encourage the use of incentive spirometry with plans to titrate oxygen down to keep saturation close to 90. -03/27/2022; patient has been weaned off oxygen 2.? Acute non-STEMI ? Patient EKG demonstrated ST segment depression in V2 to V3 with T wave inversions in V4?V5 V6.? His troponin was markedly elevated at 19,000.? Treatment initiated per protocol.? Consult placed to cardiology plans for patient to undergo left heart catheterization with intervention if needed Patient underwent LHC on 03/21/2022 which demonstrated totally occluded left circumflex artery, patent LAD and and a nondominant right coronary artery. ? His ejection fraction was markedly reduced with severe mitral regurgitation.? An attempted angioplasty of the circumflex artery was unsuccessful.? He apparently developed some clots in the LAD which was treated he had IABP and was intubated and transferred to the intensive care unit ? 03/23/2022.? IABP remains in place Case discussed with Dr. Lamas 03/24/2022 IABP discontinued -03/26/2022 patient remains on recommended medication plan is for patient to undergo staged PCI of a completely occluded proximal left circumflex early next week.? Patient and the would prefer for the procedure to be performed at a tertiary care center this has been communicated to the attending disposal plant operator Dr. Fontanez -03/27/2022; Patient encouraged to have a discussion with Dr Fontanez regarding further management - 03/27/2022; Transfered to [facility] 3.? Acute congestive heart failure with reduced ejection fraction presenting with cardiogenic shock IABP in place as well as patient being on Levophed -03/24/2022 IABP discontinued ? 03/25/2022.? Patient Levophed has been weaned off blood pressure however remains relatively low ? 03/26/2022 patient off pressors started on Lasix and low-dose KENNY inhibitor's 4.? Mechanical ventilation ? Patient was intubated following his [facility].? Vent management deferred to pulmonary/critical care medicine ? 03/24/2022 patient has been weaned off the vent 5.? Transient A. fib ? Patient started on amiodarone drip.? Patient is on azithromycin discontinued due to potential for QT prolongation while on amiodarone ? 03/25/2022; patient is on p.o. amiodarone 6.? Hypokalemia ? Corrected per protocol repeat labs ordered for a.m. 7.? Valvular heart disease -with severe mitral valve regurgitation 8.? Bilateral pulmonary infiltrate ? Secondary to rhinovirus infection patient treated symptomatically.? Patient was empirically started on ceftriaxone and azithromycin for suspected superimposed bacterial pneumonia, given his elevated WBC count. ? 03/23/2022 azithromycin discontinued -03/24/2022 remains on antibiotics and high flow oxygen 9.? Elevated transaminitis ? Suspected to be secondary to patient acute non-STEMI monitoring ? 03/24/2022 patient acute transaminitis resolved 10.? DVT prophylaxis ? Patient is on heparin 11.? Physical deconditioning - Requested for PT OT eval and psychologist social to assist with discharge planning Physical Exam Narrative GENERAL: Cooperative in no apparent distress HEENT: Atraumatic; normocephalic EYES; Anicteric, Normal Conjunctiva NECK; supple, normal thyroid, RESPIRATORY: Diminished to auscultation CARDIOVASCULAR:? Regular S1 S2, GI:? soft, normoactive bowel sounds, : No Renal angle tenderness; EXTREMITIES:? No edema, no clubbing, MUSCULOSKELETAL:? no muscle wasting NEURO: Grossly intact no lateralizing signs SKIN:? No Rash PSYCH; flat affect Weight / BMI Weight Weight: 85.3 kg Body Mass Index (BMI) 26.8 ABG / Lab / Microbiology Data Result Diagrams: 03/26/22 03:15 03/26/22 03:15 Microbiology: Microbiology 03/21/22 17:00 Sputum, Induced/Lukens Gram Stain - Final 03/21/22 17:00 Sputum, Induced/Lukens Respiratory Culture - Final 03/20/22 07:10 Blood Culture (Wb) - Anticubital Left Blood Culture - Final No growth in 5 days. 03/20/22 07:00 Blood Culture (Wb) - Anticubital Right Blood Culture - Final No growth in 5 days. 03/20/22 11:02 Interface Orders Respiratory Panel (PCR) - Final Rhinovirus 03/20/22 09:56 Urine, Clean Catch Legionella Antigen - Final 03/20/22 09:56 Urine, Clean Catch Streptococcus pneumoniae Antigen (M - Final 03/20/22 09:58 Nasal Secretion SARS-CoV-2 Antigen (Rapid) - Final 03/20/22 09:02 Nasal Secretion SARS-CoV-2 Antigen (Rapid) - Final Meaningful Use Info Meaningful Use Diagnoses (Choose all that apply): AMI AMI/Post PCI/Angioplasty Aspirin given w/in 24hrs of arrival?: Yes Reason no aspirin w/in 24hrs of arrival?: Allergy ASA at discharge?: Yes Antiplatelet Therapy at Discharge:: Yes Statins at discharge?: Yes Kenny/ARB at discharge?: Yes Beta Tania at discharge?: Yes Done w/ Acute NC measure.: Yes Documented LVEF (%): 45 Discharge Plan Admission Admit Date/Time: 03/20/22 08:14 Attending Provider: Maverick Jacobs Primary Care Provider: Moshe Sanchez Consulting Providers: Cherry Camacho Discharge Orders/Prescriptions Prescriptions: No Action NK Referrals / Follow Up: Moshe Sanchez MD [Primary Care Provider] - Disposition Disposition (needs filled in before D/C Order can be placed): Acute Care Hospital Charges/Coding Visit Charges Inpatient E&M: 12315 Disch Hosp
== END 2022-03-27 17:01 | disposition short-term general hospital (02) | DRG 270 ==
LOC: ED 08:08 → PCU 08:52 → ICU 03-21 20:41 → PCU 03-26 15:06
PROVIDERS: Internal Medicine Cardiovascular Disease; Internal Medicine Critical Care Medicine; Admitting Provider Internal Medicine; Emergency Provider Emergency Medicine; PCP Family Medicine; Visit Provider Internal Medicine
DX: I21.4 Non-ST elevation (NSTEMI) myocardial infarction (principal); J81.0 Acute pulmonary edema; J96.01 Acute respiratory failure with hypoxia; R57.0 Cardiogenic shock; I50.21 Acute systolic (congestive) heart failure; J15.9 Unspecified bacterial pneumonia; I48.0 Paroxysmal atrial fibrillation; M79.10 Myalgia, unspecified site; I34.0 Nonrheumatic mitral (valve) insufficiency; J00 Acute nasopharyngitis [common cold]; E87.6 Hypokalemia; Z79.2 Long term (current) use of antibiotics; Z66 Do not resuscitate; Z79.82 Long term (current) use of aspirin; B34.8 Other viral infections of unspecified site
CPT/HCPCS: 31500; 31720; 33967; 36415; 36569; 71045; 74018; 80048; 80053; 80076; 82803; 83605; 83735; 83880; 84100; 84145; 84484; 85025; 85027; 85347; 85610; 85730; 87040; 87070; 87205; 87426; 87449; 87633; 87641; 87811; 92928; 92973; 93005; 93306; 93308; 93458; 94002; 94003; 94640; 94660; 94799; 97110; 97162; 97166; 97530; 99152; 99153; 99251; 99285; C1757; C1887; J7030; J7040; J7050; Q9967; A4216; C1769; C1894; C9600; G0463; J1327; J1940; J2405; J3010

== ENCOUNTER → 2022-06-10 | Outpatient (CLI) | payer OTHER, SELFPAY ==
--- NOTE | 2022-06-10 09:32 | PCM.CR.HP2 ---
CR - History & Physical - General Arrival date:: 06/10/22 Arrival time:: 09:32 Date of Referral:: 05/30/22 Date of CR Evaluation:: 06/10/22 Referring Physician: Dr. Deanna Schroeder Primary Diagnosis: NSTEMI, LVEF <35% - History of Present Cardiac Event Onset Date: Enter Onset Date of cardiac illnesses in Comment field below Acute Myocardial Infarction within 12 months:: Yes - LVEF <35% - Sleep Disorder Evaluation Hx of Sleep Apnea: No Do you snore loudly (louder than talking or can be heard through closed doors)?: No Do you often feel tired/ fatigued/ sleepy during daytime?: No Has anyone observed you stop breathing during sleep?: No History of Hypertension (for STOP score): Yes STOP Results: Negative - Medications Home Medications: Ambulatory Orders Medication Instructions Recorded NK 03/20/22 - Allergies Allergies/Adverse Reactions: Allergies No Known Allergies Allergy (Verified 03/20/22 05:56) Advanced Directives - Advanced Directives Power of Superintendent Greens: No Living Will: No Advance Directives Information Provided: No Advance Directives on File: No DNR Order?:: No Past Medical History - Covid-19 Screening Has a serious heart condition:: Yes - Past Medical Illness Medical History: Past Medical History (Last Updated 03/29/22 @ 20:08 by Marti Trevino) Acute combined systolic (congestive) and diastolic (congestive) heart failure I50.41 Atherosclerosis of coronary artery without angina pectoris I25.10 Ischemic cardiomyopathy I25.5 Leukocytosis D72.829 Nonrheumatic mitral (valve) insufficiency I34.0 Pyrexia R50.9 - Past Surgical History Surgical History: Past Surgical History (Last Updated 04/04/22 @ 15:16 by Kayleen Canales) History of coronary artery stent placement Onset Date: ~03/21/22 Z95.5 Mid LAD-RENEE Orsiro 2.65p02ut and RENEE Orsiro 2.5x9mm History of left heart catheterization Onset Date: 03/21/22 Z98.890 Social History - Smoking History Smoking Status: Never smoker - Alcohol Use Alcohol Usage: Yes - occas - Substance Abuse Hx Substance Use: No - Occupation Occupation (List type of work in comments):: Employed Hours worked per day:: 8 - Hobbies, Recreation, Social Activities Hobbies: Hiking Recreational Activities: I am able to engage in all my recreational activities Social Environment - Status Marital Status: - Current Living Arrangements Living Environment:: Spouse - Safety Do you feel safe in your surroundings?: Yes - Assistance Do you need any assistance at home?: no Review of Systems - Review of Systems Hints: Right click = Denies (Slash). Left click = Reports ([place]) Review of Present Symptoms: Reports: Shortness of Breath with Exertion, Heart Arrhythmia/Irregularities, Appetite - Normal, Sleep - Normal. Denies: Shortness of Breath at Rest, PVD, Operative Discomfort, Angina, Wound Healing, Dizziness/Lightheadedness, Fatigue, Appetite - Special Diet, Sexual Changes - Pain Is Patient Pain Free?: Yes Risk Factor Assessment - Vital Signs Pulse Ox: 98 - Pulse Pulse Rate: 79 Pulse Rhythm: Irregular - Hypertension Blood Pressure Sitting - Left Arm: 130/68 - Obesity Height: 5 ft 11 in Weight:: 80.286 kg Weight in Pounds: 177.0 lbs Body Mass Index (BMI): 24.7 Nutritional Referral for Obesity: No - Physical Inactivity Physical Inactivity: Reg Exercise 30 min/day - Risk Stratification Risk Guidelines: Lowest Risk: Risk Factor for Smoking, Moderate Risk: Risk Factor for Dyslipidemia, Risk Factor for Diabetes, Risk Factor for Obesity, Risk Factor for Sedentary Lifestyle, Risk Factor for Depression, Highest Risk: Risk Factor for Hypertension Motivation - Motivation to Participate On a scale of 1 to 10, how prepared are you to commit to attending program?: 10 What do you see as barriers to successfully being able to complete the program?: nothing What do you see as the benefits of succesfully completing the program? In other words, what do you hope to get out of participating in the program?: education, better shape Are there issues you are dealing with that will interfere with completing the program?: nothing Do you have a spouse or signficant other, family or friends who will help support you to complete the program?: yes
[2022-06-10 10:16] VITALS: BP 130/68; PULSE 79; O2SAT 98; BMI 24.7
--- NOTE | 2022-06-10 10:17 | CR.ITP_ITS ---
Diagnosis - General Information Admitting Diagnosis: NSTEMI, LVEF <35% Personal Learning Style:: Audio/Visual, Demonstration, Group, Individual Preference, Written Stage of change r/t lifestyle modifications:: Contemplation Gave educational material for:: Treating Heart Disease, Emotions & Heart Disease, Stress Management & Relaxation, Sleep Disorders & Heart Disease, How The Heart Works, What it means to have Heart Disease, How Coronary Artery Disease is Diagnosed, Heart Procedures, What Heart Medications Do, Risk Factors & Modifications, Living an Active Life, Nutrition - Education/Goals Cardiac Rehabilitation Goals: 1. Maintain the individual as the primary focus of care. 2. To improve the patient's quality of life. 3. Identification of cardiac risk factors and provide cardiac risk factor management. 4. Enhance the psychosocial status of the patient. 5. Reconditioning enough to allow the patient to resume customary activities. 6. Control symptoms of cardiac disease Personal Goals: Initial Assessment: Improve energy level, Improve diet and eating habits (eat healthier), Control risk factors (learn risk factor modification), Other goal: Scale for measuring improvement of personal goals: Enter appropriate number in Comments. 2 = Unchanged. 3 = Slightly Better. 4 = Moderate Improvement. 5 = Met my Goal - Diagnosis & Disease Process Outcomes/Goals: Pt IDs own risk factors & lifestyle modifications by Session 10, Verbalizes symptoms of angina & response by session 3., Pt independently kim franklin, Other Additional Outcomes/Goals: Plan/Interventions: Assist Pt to ID & engage in lifestyle modification to reduce CVD risk, Instruct on individual risk factors, Review symptoms of angina & emergency actions, Review secondary diagnosis & identify educational needs., Other see comment 30 day Reassessments:: Not Met 30 day Reassessments:: Not Met 30 day Reassessments:: Not Met 30 day Reassessments:: Not Met Final Reassessments:: Not Met - Safety Referral to Physical Therapy: No Referral to [facility] Case Management: No Fall Risk Assessed:: Yes Assistive Devices:: None Exercise - Initial Assessment - Visit Date of Eval: 06/10/22 - initial eval Mets: Pre-: >3 METS for 30 minutes by discharge, >5 METS for 30 minutes by discharge, >7 METS for 30 minutes by discharge, Unable to meet goal due to: (see comment below) - Physician Prescribed Exercise Modalities: Treadmill, Rower, Airdyne, NuStep, SciFit, Lateral [place] Frequency: 3x/week for 12 weeks [36 sessions] Intensity: 60-80% of age predicted maximum heart rate reserve Current METSs:: 3 Target Heart Rate:: 103-118 Resting Blood Pressure: 130/68 EKG Type: SR - Outcomes & Goals Goals:: Verbalizes understanding of THR, RPE & goal METS by session 6, Documents in home exercise log/reports 30 min aerobic 5 day/wk by DC, Demonstrates accurate pulse taking by DC, Other additional outcome/goals: see below - Intervention & Plan Exercise Program Goals: Instruct on personal THR & RPE, Instruct on MET level & personal MET goal, Show patient to take own pulse /validate performance until accurate, Instruct on home exercise, Other additional plan/int - Physical Activity Home Exercise Physical Activity - Home Exercise: Safe Exercise, Warm-up, Self-monitoring, Cool-Down, Home Exercise > 30 min Daily, Sitting Time <3 hours/daily - Outcomes & Goals Outcomes/Goals: Demonstrates correct Warm-up/exercise Cool-Down (S3) if = 2.5 METs, Verbalizes symptoms of exercise intolerance by Session 3 (S3), Demonstrate safe equipment use (S3) & follows exercise prescrition (6), Other: See below - Intervention & Plan Plan/Intervention: Instruct warm-up & cool-down if exercising at > 2 METs, Instruct on symptoms of exercise intolerance & actions to take, Instruct & monitor on saf, Assess intial functional capacity & safety risk, Other See below Nutrition - Initial Assessment - Program Goals Nutrition Program Goals: LDL <100 optimal. 100 - 129 Near optimal. 130 - 159 Borderline High. 160 - 189 High. Total Cholesterol <200 desirable. 200 - 239 Borderline High. >/= 240 High. HDL < 40 Low >/=60 High. Triglycerides <150 desirable. <199 optimal. VlDL 5 - 40. HgbA1C <7%. BMI <25 Patient has diagnosis of Hyperlipidemia (ICD E78)?: Yes - Visit Date of Assessment:: 06/10/22 - initial eval - Cholesterol/Lipids (Other Core Measures) Determine presence & major risk factors that modify LDL goal: Hypertension or hypertensive medication, Low HDL cholesterol <40 mg/dL*, Family history of premature CHD in Male < 55 years: female <65 yearsFa, Age men > 45 years; women >/= 55 years Outcomes/Goals: Pt IDs own risk factors & lifestyle modifications by Session 10, Verbalizes symptoms of angina & response by session 3., Pt independently manages, Other Additional Outcomes/Goals: Intervention/Plan: Advocate for lipid panel cholesterol medication if applicable, Instruct on personal lipid levels & lipid goals/NCEP guidelines, Instruct on cholesterol, Other additional plan/int - Diabetes (Other Core Measures) Diabetes Type: Not Applicable - Weight Mgt (Other Care) Height: 5 ft 11 in Weight:: 80.286 kg BMI: 24.7 Diagnosis Overweight/Obesity BMI> 30% ICD-10 E66: No Diagnosis High BMI/Morbid Obesity BMI> 35% ICD-10 Z68: No Outcomes/Goals: Pt sets, maintains & shows weight loss goal & trend during rehab, Other additional outcomes/goals Intervention/Plan: Instruct on ideal BMI & set weight loss goal w/patient, Assist pt to ID & incorporate diet changes for weight loss by S9, Refer to Structured Weight Loss program as appropriate, Encourage goal of using 250- 300dcal per session for weight loss, Other additional plan/interventions - Healthy Eating Habits Will attend diet classes:: Yes Outcomes/Goals:: Consume diet rich in vegs,fruits,whole grain/high fiber,fish,lean meat, Limit sat/trans fats,cholesterol & added salts & sugars, Other additional outcome/goals: Intervention/Plan:: Assess current eating habits, Other Additional plan/interventions - Education Gave educational materials for:: Signs & symptoms of hypoglycemia, Signs & symptoms of hyperglycemia, Relate diabetes to coronary artery disease, Healthy eating Nutrition - 30-Day Assessment Nutrition - 60-Day Assessment Nutrition - 90-Day Assessment Nutrition - Final Assessment Core - Initial Assessment - Visit Date of Eval: 06/10/22 - initial eval - Medication Compliance Preventative Medication(s):: Aspirin, Ticagrelor/P2Y12 inhibitor, Statin/lipid, Beta tonya, ARB (Angiotensi Rcap) H/O mental health issues: depression, anxiety, or addiction?: No Doesn?t believe in the benefits of treatment?: No Believes medications are unnecessary or harmful?: No Has a concern about medication side effects?: No Expresses concern over the cost of medications?: No Outcomes/Goals: Verbalizes medications,desired effect & common side effects @ DC, Pt self-reports following medication regimen, Keeps card in wallet w/medications listed by DC, Other additional outcome/goals: Interventions/plans: Instruct on medication effects & side effects, Review medication list w/patient every two weeks, Instruct importance of taking meds as ordered & assist problem solving, Other additional - Tobacco Use Tobacco Use: Non-smoker Do you use smokeless tobacco?: No - Hypertension Hypertension Diagnosis:: Hypertension ICD-10 I10 Resting Blood Pressure:: 130/68 [place] [employer] Hypertension Guidelines: [place] [employer] Hypertension Guidelines. Normal BP Less than 120/80. Elevated BP 120/80. Hypertension Stage 1: BP 130-139/80-89. Hypertesnion Stage 2: BP 140 or higher/90 or higher. Hypertension Crisis: BP higher than 180/120 Outcomes/Goals: Able to verbalize/achieve optimal blood pressure <130/80, Incorporates diet changes & exercise for blood pressure control by DC, Other additional outcomes/goals Interventions/plan: Instruct on optimal blood pressure, hypertension & medications, Instruct on effects of sodium, alcohol, stress, exercise &hypertension, Other additional plan/interventions - Tobacco Cessation Referral Smoking Cessation Referral:: No Individual Education/Counseling:: No Education Schedule Given:: Yes Core - 30-Day Assessment Core - 60-Day Assessment Core - 90 Day Assessment Core - Final Assessment Psychosocial - Initial Assess - VIsit Date of Eval: 06/10/22 - initial eval - Outcomes/Goals: See list Psychosocial Outcomes/Goals:: ID's personal stressors & 2 strategies to manage stress by discharge, Other Additional outcome/goals: - Intervention/Plan: See List Interventions/Plan:: Assess stressors,coping strategies & signs of derpression on admission, Instruct/assist pt to develop coping & personal stress Mgt strategies, Refer to Behavioral Health if appropriate, Refer to Physician if appropriate, Instruct patient to recognize signs & symptoms of depression, Instruct patient to recog, Other additional plan/intervention Psychosocial - 30-Day Assess Psychosocial - 60-Day Assess Psychosocial - 90-Day Assess Psychosocial - Final Assessmen Patient Health Questionnaire Initial Assessment 1. Little interest or pleasure in doing things: Not at all 2. Feeling down, depressed, or hopeless: Not at all 3. Trouble falling or staying asleep, or sleeping too much: Not at all 4. Feeling tired or having little energy: Not at all 5. Poor appetite or overeating: Not at all 6. Feeling bad about yourself -- or that you are a failure or have let yourself or your family down: Not at all 7. Trouble concentrating on things, such as reading the newspaper or watching television: Not at all 8. Moving or speaking so slowly that other people could have noticed. Or the opposite - being so fidgety or restless that you have been moving around a lot more than usual: Not at all 9. Thoughts that you would be better off , or of hurting yourself in some way: Not at all How difficult have these problems made it for you to do your work, take care of things at home, or get along with other people?: Not difficult at all Total Score: 0 NATHANIEL-Q SV Test - Statements CAD is a disease of the arteries in the heart: False Examples of risk factors for heart disease: True Angina is chest pain or discomfort: True The benefits of resistance training include: True Eating more meat and dairy products: False Anti-platelet medications such as aspirin are important: I Don't Know The only effective way to manage stress: False An exercise warm-up slowly increases heart rate: I Don't Know Prepared, processed foods usually have high sodium: True Depression is common after a heart attack: True The statin medications lower cholesterol: True To control blood pressure, lower the amount of sodium: True If someone gets chest discomfort during walking: False Transfats are partially hydrogenated vegetable oils: True Sleep apnea that is not treated increases the risk: I Don't Know To control cholesterol, one should become a vegetarian: False Someone knows if he/she is exercising at the right level: I Don't Know Diabetes cannot be prevented with exercise & health eating: False Stress is a large risk for heart attack: True A diet that can help lower blood pressure is rich in: True - Total Score Total Correct Responses: 16 Self-Efficacy Initial Assessment We would like to know how confident you are in doing certain activities. Please select your confidence level for:: Select your confidence level for the following using the scale 1-10 where 1 is not at all confident and 10 is totally confident. Your score is the average of all 6 responses. Fatigue: How confident are you that you can keep the fatigue caused by your disease from interfering with the things you want to do? Select Number: 9 Physical Discomfort or Pain: How confident are you that you can keep the physical discomfort or pain of your disease from interfering with the things you want to do? Select Number: 10 Emotional Distress: How confident are you that you can keep the emotional distress caused by your disease from interfering with the things you want to do? Select Number: 9 Other Symptoms or Health Problems: How confident are you that you can keep other symptoms or health problems from interfering with the things you want to do? Select Number: 10 Different Tasks and Activities: How confident are you that you can do the different tasks and activities needed to manage your health condition so as to reduce your need to see a doctor? Select Number: 9 Medication: How confident are you that you can do things other than just taking medication to reduce how much your illness affects your everyday life? Select Number: 10 Total Score:: 9 Nutrition Survey - Nutrition Survey Initial Have you lost >10 lbs over the past 2 months without trying?: Yes Are you following a special diet at home for diabetes, low fat, or low salt?: No Are you interested in meeting with a dietitian for help understanding your diet?: No Do you eat less than 3 meals a day?: No Do you eat fatty meats (chilel, sausage, ribs, etc), fried foods, desserts, large amounts of salad dressings, margarine, butter, or cheese most days?: No Do you have food allergies? [Enter types in comment field]: No Do you eat in restaurants more than 3 times a week?: No Do you season food with salt, seasoning salt, or garlic salt?: No Do you used canned, boxed, frozen meals, or soups, seasoning packets?: No Total Score:: 1
[2022-06-10 10:27] VITALS: BP 130/68; BMI 24.7
== END | disposition home or self-care (01) ==
PROVIDERS: PCP Family Medicine
DX: I25.10 Atherosclerotic heart disease of native coronary artery without angina pectoris (principal); I25.2 Old myocardial infarction; Z95.5 Presence of coronary angioplasty implant and graft

== ENCOUNTER 2022-07-04 11:30 | Outpatient (RCR) | payer OTHER, SELFPAY ==
[2022-06-10 10:27] VITALS: BMI 24.7
== END 2022-07-05 23:59 ==
LOC: CR 11:30
PROVIDERS: PCP Family Medicine
DX: I50.22 Chronic systolic (congestive) heart failure (principal); I25.5 Ischemic cardiomyopathy
CPT/HCPCS: 93798

== ENCOUNTER 2022-08-05 11:30 | Outpatient (RCR) | payer OTHER, SELFPAY ==
[2022-06-10 10:27] VITALS: BMI 24.7
--- NOTE | 2022-07-11 08:19 | CR.ITP_ITS ---
Diagnosis Exercise - 30-day Assessment - Visit Date of Eval: 07/11/22 Session #:: 9 - Patient has missed 4 of 12 scheduled appointments - Physician Prescribed Exercise Modalities: Treadmill, Airdyne, NuStep Frequency: 3x/week for 12 weeks [36 sessions] Intensity: 60-80% of age predicted maximum heart rate reserve Duration: 30 - 45 minutes Current METSs:: 6.0 Target Heart Rate:: 118-134 Current RPE:: 11-12 Maximum Excercise HR:: 136 Resting Blood Pressure: 98/62 Maximum Exercise Blood Pressure: 118/68 EKG Type: NSR to sinus tachycardia w/rare PVC, ectopy has decreased dramatically Current Physical Activity or Exercising minutes: 35 - Outcomes & Goals Goals:: Verbalizes understanding of THR, RPE & goal METS by session 6, Documents in home exercise log/reports 30 min aerobic 5 day/wk by DC, Demonstrates accurate pulse taking by DC - Intervention & Plan Exercise Program Goals: Instruct on personal THR & RPE, Instruct on MET level & personal MET goal, Show patient to take own pulse /validate performance until accurate, Instruct on home exercise - Physical Activity Home Exercise Physical Activity - Home Exercise: Safe Exercise, Warm-up, Self-monitoring, Cool-Down, Home Exercise > 30 min Daily, Sitting Time <3 hours/daily - Outcomes & Goals Outcomes/Goals: Demonstrates correct Warm-up/exercise Cool-Down (S3) if = 2.5 METs, Verbalizes symptoms of exercise intolerance by Session 3 (S3), Demonstrate safe equipment use (S3) & follows exercise prescrition (6) - Intervention & Plan Plan/Intervention: Instruct warm-up & cool-down if exercising at > 2 METs, Instruct on symptoms of exercise intolerance & actions to take, Instruct & monitor on saf, Assess intial functional capacity & safety risk - 30-day Reassessments 30 day Reassessments:: Progressing Nutrition - Initial Assessment Nutrition - 30-Day Assessment - Program Goals Nutrition Program Goals: LDL <100 optimal. 100 - 129 Near optimal. 130 - 159 Borderline High. 160 - 189 High. Total Cholesterol <200 desirable. 200 - 239 Borderline High. >/= 240 High. HDL < 40 Low >/=60 High. Triglycerides <150 desirable. <199 optimal. VlDL 5 - 40. HgbA1C <7%. BMI <25 Patient has diagnosis of Hyperlipidemia (ICD E78)?: Yes - Visit Date of Assessment:: 07/11/22 - t Session #:: 9 - Cholesterol/Lipids (Other Core Measures) Triglycerides (mg/dL): 123 Total Cholesterol (mg/dL): 146 LDL Cholesterol (mg/dL): 102 HDL Cholesterol (mg/dL): 19 Determine presence & major risk factors that modify LDL goal: Hypertension or hypertensive medication, Low HDL cholesterol <40 mg/dL*, Age men > 45 years; women >/= 55 years Outcomes/Goals: Pt IDs own risk factors & lifestyle modifications by Session 10, Verbalizes symptoms of angina & response by session 3., Pt independently manages Intervention/Plan: Instruct on personal lipid levels & lipid goals/NCEP guidelines, Instruct on cholesterol Referral to dietitian:: Yes - Medical Nutrition Therapy 30-day Reassessments:: Progressing - Diabetes (Other Core Measures) Diabetes Type: Not Applicable - Weight Mgt (Other Care) Not Applicable: Yes Height: 5 ft 11 in Weight:: 182 lb 8 oz BMI: 25.4 Diagnosis Overweight/Obesity BMI> 30% ICD-10 E66: No Diagnosis High BMI/Morbid Obesity BMI> 35% ICD-10 Z68: No Outcomes/Goals: Pt sets, maintains & shows weight loss goal & trend during rehab Intervention/Plan: Instruct on ideal BMI & set weight loss goal w/patient 30 day Reassessments:: Met - Healthy Eating Habits Will attend diet classes:: Yes Outcomes/Goals:: Consume diet rich in vegs,fruits,whole grain/high fiber,fish,lean meat, Limit sat/trans fats,cholesterol & added salts & sugars 30-day Reassessments:: Progressing - Education Gave educational materials for:: Healthy eating Nutrition - 60-Day Assessment Nutrition - 90-Day Assessment Nutrition - Final Assessment Core - Initial Assessment Core - 30-Day Assessment - Visit Date of Eval: 07/11/22 Session #:: 9 - Medication Compliance Preventative Medication(s):: Aspirin, Ticagrelor/P2Y12 inhibitor, Statin/lipid, Beta tonya H/O mental health issues: depression, anxiety, or addiction?: No Doesn?t believe in the benefits of treatment?: No Believes medications are unnecessary or harmful?: No Has a concern about medication side effects?: No Expresses concern over the cost of medications?: No Outcomes/Goals: Verbalizes medications,desired effect & common side effects @ DC, Pt self-reports following medication regimen, Keeps card in wallet w/medications listed by DC Interventions/plans: Instruct on medication effects & side effects, Review medication list w/patient every two weeks, Instruct importance of taking meds as ordered & assist problem solving 30-day Reassessments:: Progressing - Tobacco Use Tobacco Use: Non-smoker - Hypertension Hypertension Diagnosis:: Hypertension ICD-10 I10 Resting Blood Pressure:: 98/62 [place] [employer] Hypertension Guidelines: [place] [employer] Hypertension Guidelines. Normal BP Less than 120/80. Elevated BP 120/80. Hypertension Stage 1: BP 130-139/80-89. Hypertesnion Stage 2: BP 140 or higher/90 or higher. Hypertension Crisis: BP higher than 180/120 Peak Exercise Blood Pressure:: 118/68 Outcomes/Goals: Able to verbalize/achieve optimal blood pressure <130/80, Incorporates diet changes & exercise for blood pressure control by DC Interventions/plan: Instruct on optimal blood pressure, hypertension & medications, Instruct on effects of sodium, alcohol, stress, exercise &hypertension 30 day Reassessments:: Progressing - Tobacco Cessation Referral Smoking Cessation Referral:: No Individual Education/Counseling:: No Core - 60-Day Assessment Core - 90 Day Assessment Core - Final Assessment Psychosocial - Initial Assess Psychosocial - 30-Day Assess - VIsit Date of Eval: 07/11/22 Session #:: 9 Not Applicable: Yes History of previous Mental disease:: No - Psychosocial Test Tool Used:: PHQ-9 Questionnaire phq-9 Severity: Severity. 1-4 Minimal Depression. 5-9 Mild Depression. 10-14 Moderate Depression. 15-19 Moderately Sever Depression. 20-27 Severe Depression. Rule: - Referral to Behavioral Health PS - Interventions: Yes Attend Stress Management Classes, No Referral to Behavioral Health if PHQ-9 score >9:, No Referral to [facility], No Referral to Physician if PHQ-9 if score is 5-9: - Outcomes/Goals: See list Psychosocial Outcomes/Goals:: ID's personal stressors & 2 strategies to manage stress by discharge - Intervention/Plan: See List Interventions/Plan:: Assess stressors,coping strategies & signs of derpression on admission, Instruct/assist pt to develop coping & personal stress Mgt strategies, Instruct patient to recognize signs & symptoms of depression, Instruct patient to recog - 30-day Reassessments: 30 day Reassessments:: Progressing Psychosocial - 60-Day Assess Psychosocial - 90-Day Assess Psychosocial - Final Assessmen Patient Health Questionnaire 30-Day Re-eval Assessment 1. Little interest or pleasure in doing things: Not at all 2. Feeling down, depressed, or hopeless: Not at all 3. Trouble falling or staying asleep, or sleeping too much: Not at all 4. Feeling tired or having little energy: Not at all 5. Poor appetite or overeating: Not at all 6. Feeling bad about yourself -- or that you are a failure or have let yourself or your family down: Not at all 7. Trouble concentrating on things, such as reading the newspaper or watching television: Not at all 8. Moving or speaking so slowly that other people could have noticed. Or the opposite - being so fidgety or restless that you have been moving around a lot more than usual: Not at all 9. Thoughts that you would be better off , or of hurting yourself in some way: Not at all How difficult have these problems made it for you to do your work, take care of things at home, or get along with other people?: Not difficult at all Total Score: 0 Self-Efficacy 30-Day Re-eval Assessment We would like to know how confident you are in doing certain activities. Please select your confidence level for:: Select your confidence level for the following using the scale 1-10 where 1 is not at all confident and 10 is totally confident. Your score is the average of all 6 responses. Fatigue: How confident are you that you can keep the fatigue caused by your disease from interfering with the things you want to do? Select Number: 10 Physical Discomfort or Pain: How confident are you that you can keep the physical discomfort or pain of your disease from interfering with the things you want to do? Select Number: 10 Emotional Distress: How confident are you that you can keep the emotional distress caused by your disease from interfering with the things you want to do? Select Number: 10 Other Symptoms or Health Problems: How confident are you that you can keep other symptoms or health problems from interfering with the things you want to do? Select Number: 10 Different Tasks and Activities: How confident are you that you can do the different tasks and activities needed to manage your health condition so as to reduce your need to see a doctor? Select Number: 10 Medication: How confident are you that you can do things other than just taking medication to reduce how much your illness affects your everyday life? Select Number: 10 Total Score:: 10 Nutrition Survey
[2022-07-11 08:28] VITALS: BP 118/68; BP 98/62; BMI 25.4
== END 2022-08-05 23:59 ==
LOC: CR 11:30
PROVIDERS: PCP Family Medicine
DX: I50.22 Chronic systolic (congestive) heart failure (principal); I25.5 Ischemic cardiomyopathy
CPT/HCPCS: 93798

== ENCOUNTER 2022-08-15 11:30 | Outpatient (RCR) | payer OTHER, SELFPAY ==
[2022-07-11 08:28] VITALS: BMI 25.4
[2022-08-06 01:57] VITALS: BP 118/68; BP 98/62
== END 2022-09-04 23:59 ==
LOC: CR 11:30
PROVIDERS: PCP Family Medicine
DX: I50.22 Chronic systolic (congestive) heart failure (principal); I25.5 Ischemic cardiomyopathy
CPT/HCPCS: 93798

== ENCOUNTER 2022-09-05 10:05 | Outpatient (RCR) | payer OTHER, SELFPAY ==
[2022-07-11 08:28] VITALS: BMI 25.4
[2022-09-05 00:38] VITALS: BP 118/68; BP 98/62
--- NOTE | 2022-09-05 09:14 | PCM.CR.ITP ---
Diagnosis Exercise - 90-day Assessment - Visit Date of Eval: 09/05/22 - Pt is on med hold due to pacer/defib implant Session #:: 23 Nutrition - Initial Assessment Nutrition - 30-Day Assessment Nutrition - 60-Day Assessment Nutrition - 90-Day Assessment Nutrition - Final Assessment Core - Initial Assessment Core - 30-Day Assessment Core - 60-Day Assessment Core - 90 Day Assessment Core - Final Assessment Psychosocial - Initial Assess Psychosocial - 30-Day Assess Psychosocial - 60-Day Assess Psychosocial - 90-Day Assess Psychosocial - Final Assessmen Nutrition Survey
== END 2022-10-05 23:59 ==
LOC: CR 10:05
PROVIDERS: PCP Family Medicine
DX: I50.22 Chronic systolic (congestive) heart failure (principal); I25.5 Ischemic cardiomyopathy
CPT/HCPCS: 93798